=== PATIENT | female | born 1965 | race Caucasian/White ===

== ENCOUNTER 2021-09-10 09:43 | Day surgery (SDC) | payer OTHER ==
[2021-09-07 10:39] LABS: Absolute Lymphocytes (CBC) 1.4 K/uL (0.7-4.9); Hematocrit 49.2 % (36.0-45.0); Lymphocytes % 15.2 % (15.3-44.8)
[2021-09-07 10:47] LABS: Protime INR 0.87
[2021-09-07 11:52] LABS: Blood Morphology Comment NOTED (NOT SEEN); Platelet Estimate ADEQ; Platelets, Giant FEW; White Blood Cell Scan OK (OK)
[2021-09-07 11:53] LABS: Anisocytosis 1+; Macrocytosis 1+
[2021-09-10] MEDS ORDERED: Ringers Lactate 1,000 ML IV ONE ×2 (09:53→15:32)
[2021-09-10] MEDS ORDERED: CEFAZOLIN SODIUM 1 GM/VIAL ONE (09:54)
[2021-09-10] MEDS ORDERED: NA CHLORIDE 0.9% 50 ML ONE (09:54)
[2021-09-10] MEDS ORDERED: MIDAZOLAM HCL 2 MG/2 ML INJ ONE (11:09)
[2021-09-10] MEDS ORDERED: ROPIVACAINE HCL 20 ML ONE (11:09)
[2021-09-10] MEDS ORDERED: dexAMETHasone 10 MG/ML VIAL ONE ×2 (11:09→14:38)
[2021-09-10] MEDS ORDERED: LIDOCAINE 1% MPF 5 ML VIAL ONE (11:09)
[2021-09-10] MEDS ORDERED: ROPLVACAINE HCL 20 ML ONE (11:09)
[2021-09-10] MEDS ORDERED: FENTANYL CITR 100 MCG/2 ML ONE (11:09)
[2021-09-10] MEDS ORDERED: dexAMETHasone 4 MG/ML VIAL ONE (11:34)
[2021-09-10] MEDS ORDERED: LIDOCAINE 1% 20 ML MDV ONE (11:35)
[2021-09-10] MEDS ORDERED: BUPIVACAINE 0.5% Inj,MDV 50 mL VIAL ONE (11:36)
[2021-09-10] MEDS ORDERED: Mastisol Adhesive Liq ONE (11:36)
[2021-09-10] MEDS ORDERED: BUPIVACAINE 0.5% PF 10 ML VIAL ONE (11:37)
[2021-09-10] MEDS ORDERED: propofoL 200 MG/20 ML VIAL IV ONE (11:45)
[2021-09-10] MEDS ORDERED: LIDOCAINE 2% MPF 5 ML VIAL ONE (11:46)
[2021-09-10] MEDS ORDERED: KETOROLAC 30 MG/ML INJ ONE (14:38)
[2021-09-10] MEDS ORDERED: ONDANSETRON 4 MG/2 ML VIAL ONE (14:49)
[2021-09-10 15:46] VITALS: O2SAT 94
[2021-09-10 17:44] VITALS: BP 119/72; TEMP 96.8
== END 2021-09-10 17:25 | disposition home or self-care (01) ==
LOC: OR 09:43
PROVIDERS: ATTEND Podiatrist Foot Surgery
PROC: 0QBN0ZZ Excision of Right Metatarsal, Open Approach (ICD-10-PCS; 2021-09-10)
PROC: 0QSN04Z Reposition Right Metatarsal with Internal Fixation Device, Open Approach (ICD-10-PCS; 2021-09-10)
PROC: 0L8V0ZZ Division of Right Foot Tendon, Open Approach (ICD-10-PCS; 2021-09-10)
PROC: 0SNM0ZZ Release Right Metatarsal-Phalangeal Joint, Open Approach (ICD-10-PCS; 2021-09-10)
PROC: 0SNM0ZZ Release Right Metatarsal-Phalangeal Joint, Open Approach (ICD-10-PCS; 2021-09-10)
PROC: 0SNM0ZZ Release Right Metatarsal-Phalangeal Joint, Open Approach (ICD-10-PCS; 2021-09-10)
PROC: 0LU Tendons, Supplement (ICD-10-PCS; 2021-09-10)
PROC: 0QBQ0ZZ Excision of Right Toe Phalanx, Open Approach (ICD-10-PCS; 2021-09-10)
PROC: 0QSN04Z Reposition Right Metatarsal with Internal Fixation Device, Open Approach (ICD-10-PCS; principal; 2021-09-10 11:00)
DX: M21.611 Bunion of right foot (principal); M20.41 Other hammer toe(s) (acquired), right foot; M21.271 Flexion deformity, right ankle and toes; Z20.822 Contact with and (suspected) exposure to COVID-19
CPT/HCPCS: 28296; 28285 ×3; 28270 ×3; 28899; 28124 ×2; 85025; 36415; 85610; 88300; 85730; U0002; J2704; J2250; J3010; J1100 ×2; J2795; J7120 ×2; J2405; J0690

== ENCOUNTER 2022-03-23 09:34 | Emergency (ER) | payer OTHER ==
--- OUTSIDE RECORDS SUMMARY | 2022-03-23 09:38 | XMS REPORT | Continuity of Care Document ---
:1965 Author Organization [facility] t Address [address] [place] [address] Care Team Providers Name Role Phone Sharonda Cowan MD Primary Care Physician STAR MENARD Attending Clinician Unavailable Sharonda Cowan MD Attending Clinician Star Menard MD Attending Clinician Roxi Sunshine Attending Clinician Pob, Adc Lab Main Attending Clinician Unavailable ROXI US Attending Clinician Unavailable Oralia Sky Attending Clinician ELENA HARRISON Attending Clinician Unavailable Elena Fajardo Attending Clinician Natalya Cantu Attending Clinician Lab, Ang - Db Attending Clinician Unavailable Doctor Unassigned, [place] Attending Clinician Unavailable SHARONDA COWAN Attending Clinician Unavailable Kelsy Ford MA Attending Clinician Unavailable Akosua TRACY, Rosa Arguelles Attending Clinician ORALIA ROBERT Attending Clinician Unavailable Scar Husain Attending Clinician SCAR ADAMES Attending Clinician Unavailable Marylou Santos Attending Clinician MARYLOU ALAN Attending Clinician Unavailable Provider, [facility] Attending Clinician Unavailable Lab, Adc Fam Pob I Attending Clinician Unavailable Mary Crocker PA-C Attending Clinician Ruy Alcala Attending Clinician RUY ELDRIDGE Attending Clinician Unavailable STAR MENARD Admitting Clinician Unavailable ROXI US Admitting Clinician Unavailable Payers Payer Name Policy Type Policy Number Effective Date Expiration Date S ac [facility] [id number] 2021 PPO 00:00:00 [employer] [place] [id number] 2020 00:00:00 Problems Condition Condition Condition Status Onset Resolution Last Treating Co mments Source Name Details Category Date Date Treatment Clinician Date Encounter Encounter Disease Active Overview: Univers for for 8-24 Formattin ity of colorectal colorectal 00:00: g of this [place] cancer cancer 00 note Medical screening screening might be Br anch different from the original. Added automatic ally from request for surgery [id number] Elevated Elevated Disease Active Unive rs LFTs LFTs 7-23 ity of 00:00: [place] 00 Medical Branch Urge Urge Disease Active Univers incontinen incontinen 3-30 it y of ce of ce of 00:00: [place] urine urine 00 Medical Branch Hypothyroi Hypothyroi Disease Active U nivers dism, dism, 3-30 ity of unspecifie [place]specif[place] d type d type 00 Medical [place] Skin Skin Disease Active Univers lesion lesion 3-30 ity of 00:00: [place] 00 Medical Branch Varicose Varicose Disease Active Unive rs veins of veins of 3-30 ity of both lower both lower [place] extremitie extremitie 00 Me dical s s Branch Hyperchole Hyperchole Disease Active U nivers sterolemia sterolemia 3-30 it y of 00:00: [place] 00 Medical Branch Depression Depression Disease Active U nivers 5-16 ity of 00:00: [place] 00 Medical Branch 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 3-07 it y of s without s without 00:[place] myelopathy myelopathy 00 Me dical Branch Left Left Disease Active Univers shoulder shoulder 9-29 ity of pain pain 00:00: [place] 00 Medical Branch Allergies, Adverse Reactions, Alerts Allergy Allergy Status Severity Reaction(s) Onset Inactive Treating Comm ents Source Name Type Date Date Clinician BUSPIRON DRUG Active Hives Univers E INGREDI 3-03 ity of 00:00: [place] 00 Medical Branch BUPROPIO DRUG Active Hives Univers N INGREDI 3-03 ity of 00:00: [place] 00 Medical Branch Buspiron Propensi Active Hives Univer s e ty to 3-03 ity of adverse 00:00: [place] reaction 00 Medical s Branch Bupropio Propensi Active Hives Univer s n ty to 3-03 ity of adverse 00:00: [place] reaction 00 Medical s Branch METHYLPR DRUG Active Hives 2020-05 Univers EDNISOLO INGREDI 1-12 ity of NE 00:00: [place] 00 Medical Branch Methylpr Propensi Active Hives 2020-05 Univer s ednisolo ty to 1-12 ity of ne adverse 00:00: [place] reaction 00 Medical s Branch Predniso Propensi Active Anaphylaxis 2020-05 U nivers ne ty to 1-04 ity of adverse 00:00: [place] reaction 00 Medical s Branch PREDNISO DRUG Active Anaphylaxis 2020-05 Uni vers NE INGREDI 1-04 ity of 00:00: [place] 00 Medical Branch VARENICL DRUG Active Other-Cmnt Univ ers INE INGREDI 7-18 ity of 00:00: [place] 00 Medical Branch Varenicl Propensi Active Other - See 2018- Anger, U nivers ine ty to comments 7-18 irritabil ity o f adverse 00:00: ity [place] reaction 00 Medical s to Branch drug CHERATUS DRUG Active Swelling 2014-05 Univer s SIN 0-29 ity of 00:00: [place] 00 Medical Branch Cheratus Propensi Active Swelling 2014-05 Swelling Un ana sin ty to 0-29 in throat ity of adverse 00:00: [place] reaction 00 Medical s Branch Social History Social Habit Start Date Stop Date Quantity Comments Source History of tobacco Cigarette Smoker University of use [facility] Alcohol intake 2022-01-14 2022-01-14 3 /d University of 00:00:00 00:00:00 [facility] Exposure to 2021-12-14 2021-12-24 Not sure [facility] SARS-CoV-2 (event) 00:00:00 11:53:00 [facility] Tobacco use and 2021-11-11 2021-11-11 Smokeless Universit y of exposure 00:00:00 00:00:00 tobacco non-user [facility] dicga Branch Cigarettes smoked 2021-11-11 2021-11-11 Univers ity of current (pack per 00:00:00 00:00:00 [facility] ) - Reported Branch Cigarette 2021-11-11 2021-11-11 University of pack-years 00:00:00 00:00:00 [facility] Sex [birth year] At [birth year] Universit y of 00:00:00 00:00:00 [facility] Smoking Status Start Date Stop Date Source Smokes tobacco daily 2021-11-11 00:00:00 [facility] ity of [facility] Medications Ordered Filled Start Stop Current Ordering Indication Dosage Frequency Signature Comments Components Source Medication Medication Date Date Medication? Clinician (SIG) Name Name MONTELUKAST 2021-05 Yes [id number] TAKE ONE Univers 10 mg 1-04 (1) TABLET ity of tablet 00:00: BY MOUTH [place] 00 DAILY. [facility] Branch benzonatate Yes [id number] 200mg Take 1 Univers 200 mg 8-19 capsule by ity of capsule 00:00: mouth 3 [place] 00 (three) Medical times [place] daily as needed for Cough. benzonatate Yes [id number] 200mg Take 1 Univers 200 mg 8-19 capsule by ity of capsule 00:00: mouth 3 [place] 00 (three) Medical times [place] daily as needed for Cough. benzonatate Yes [id number] 200mg Take 1 Univers 200 mg 8-19 capsule by ity of capsule 00:00: mouth 3 [place] 00 (three) Medical times [place] daily as needed for Cough. benzonatate Yes [id number] 200mg Take 1 Univers 200 mg 8-19 capsule by ity of capsule 00:00: mouth 3 [place] 00 (three) Medical times [place] daily as needed for Cough. amoxicillin 2021- No [id number] 1{tbl} Take 1 Univers -clavulanat 8-19 08-30 tablet by it y of e 00:00: 04:59 mouth in [place] (AUGMENTIN) 00 :00 the Medical 875-125 mg morning Branch per tablet and 1 tablet in the evening. Do all this for 10 days. ALBUTEROL Yes [id number] INHALE TWO Univers 90 8-15 (2) PUFFS ity of mcg/actuati 00:00: [place] on inhaler 00 EVERY 6 Medica l (SIX) Branch HOURS NEEDED FOR WHEEZING. ALBUTEROL Yes [id number] INHALE TWO Univers 90 8-15 (2) PUFFS ity of mcg/actuati 00:00: [place] inhaler 00 EVERY 6 Medica l (SIX) Branch HOURS NEEDED FOR WHEEZING. ALBUTEROL Yes [id number] INHALE TWO Univers 90 8-15 (2) PUFFS ity of mcg/actuati 00:00: [place] inhaler 00 EVERY 6 Medica l (SIX) Branch HOURS NEEDED FOR WHEEZING. ALBUTEROL Yes [id number] INHALE TWO Univers 90 8-15 (2) PUFFS ity of mcg/actuati 00:00: [place] inhaler 00 EVERY 6 Medica l (SIX) Branch HOURS NEEDED FOR WHEEZING. gabapentin Yes TAKE ONE Uni vers 100 mg 7-30 (1) ity of capsule 00:00: [place] 00 BY MOUTH Medical ONCE A DAY Branch AT BEDTIME NEEDED FOR INSOMNIA. gabapentin Yes TAKE ONE Uni vers 100 mg 7-30 (1) ity of capsule 00:00: [place] 00 BY MOUTH Medical ONCE A DAY Branch AT BEDTIME NEEDED FOR INSOMNIA. gabapentin Yes TAKE ONE Uni vers 100 mg 7-30 (1) ity of capsule 00:00: [place] 00 BY MOUTH Medical ONCE A DAY Branch AT BEDTIME NEEDED FOR INSOMNIA. gabapentin Yes TAKE ONE Uni vers 100 mg 7-30 (1) ity of capsule 00:00: [place] 00 BY MOUTH Medical ONCE A DAY Branch AT BEDTIME NEEDED FOR INSOMNIA. ezetimibe Yes [id number] 10mg Take 1 Un ana (ZETIA) 10 7-12 tablet by ity of mg tablet 00:00: [place] 00 the Medical morning. Branch ezetimibe 2021-0 Yes [id number] 10mg Take 1 Un ana (ZETIA) 10 7-12 tablet by ity of mg tablet 00:00: [place] 00 the Medical morning. Branch ezetimibe 2021-0 Yes [id number] 10mg Take 1 Un ana (ZETIA) 10 7-12 tablet by ity of mg tablet 00:00: [place] 00 the Medical morning. Branch ezetimibe 2021-0 Yes [id number] 10mg Take 1 Un ana (ZETIA) 10 7-12 tablet by ity of mg tablet 00:00: [place] 00 the Medical morning. Branch levocetiriz 2021-0 Yes [id number] 5mg Take 1 Univers ine 5 mg 6-22 tablet by ity of tablet 00:00: mouth [place] 00 every Medical evening. Branch levocetiriz 2021-0 Yes [id number] 5mg Take 1 Univers ine 5 mg 6-22 tablet by ity of tablet 00:00: mouth [place] 00 every Medical evening. Branch levocetiriz 2021-0 Yes [id number] 5mg Take 1 Univers ine 5 mg 6-22 tablet by ity of tablet 00:00: mouth [place] 00 every Medical evening. Branch levocetiriz 2021-0 Yes [id number] 5mg Take 1 Univers ine 5 mg 6-22 tablet by ity of tablet 00:00: mouth [place] 00 every Medical evening. Branch montelukast 2021-0 Yes [id number] 10mg Take 1 Univers 10 mg 4-25 tablet by ity of tablet 00:00: mouth [place] 00 daily. Medical Branch desvenlafax 2021-0 Yes [id number] 100mg Take 1 Univers ine 4-25 tablet by ity of succinate 00:00: mouth [place] 100 mg 24 00 daily. Medical tablet Branch montelukast 2021-0 Yes [id number] 10mg Take 1 Univers 10 mg 4-25 tablet by ity of tablet 00:00: mouth [place] 00 daily. Medical Branch desvenlafax 2021-0 Yes [id number] 100mg Take 1 Univers ine 4-25 tablet by ity of succinate 00:00: mouth [place] 100 mg 24 00 daily. Medical hr tablet Branch montelukast 0 Yes [id number] 10mg Take 1 Univers 10 mg 4-25 tablet by ity of tablet 00:00: mouth [place] 00 daily. Medical Branch desvenlafax 0 Yes [id number] 100mg Take 1 Univers ine 4-25 tablet by ity of succinate 00:00: mouth [place] 100 mg 24 00 daily. Medical hr tablet Branch desvenlafax Yes [id number] 100mg Take 1 Univers ine 4-25 tablet by ity of succinate 00:00: mouth [place] 100 mg 24 00 daily. Medical hr tablet Branch montelukast 2021- No [id number] 10mg Take 1 Univers 10 mg 4-25 11-04 tablet by ity of tablet 00:00: 00:00 mouth [place] 00 :00 daily. [facility] Immunizations Ordered Filled Immunization Date Status Comments [facility] e Immunization Name Name Pneumococcal 2021-11-11 Completed University o f Polysaccharide, 00:00:00 [place] Med ical PPSV23 (PNEUMOVAX) Branch Pneumococcal 2021-11-11 Completed University o f Polysaccharide, 00:00:00 [place] Med ical PPSV23 (PNEUMOVAX) Branch Pneumococcal 2021-11-11 Completed University o f Polysaccharide, 00:00:00 [place] Med ical PPSV23 (PNEUMOVAX) Branch Pneumococcal 2021-11-11 Completed University o f Polysaccharide, 00:00:00 [facility] ical PPSV23 (PNEUMOVAX) Branch TDAP 2021-04-07 Completed University of 00:00:00 [facility] TDAP 2021-04-07 Completed University of 00:00:00 [facility] TDAP 2021-04-07 Completed University of 00:00:00 [facility] TDAP 2021-04-07 Completed University of 00:00:00 [facility] Zoster Vaccine 2018-05-03 Completed University of Recombinant 00:00:00 [facility] Zoster Vaccine 2018-05-03 Completed University of Recombinant 00:00:00 [facility] Zoster Vaccine 2018-05-03 Completed University of Recombinant 00:00:00 [facility] Zoster Vaccine 2018-05-03 Completed University of Recombinant 00:00:00 [facility] Influenza Virus 2018-02-27 Completed Universit y of Vaccine Quad IM 3+ 00:00:00 [facility] Zoster Vaccine 2018-02-27 Completed University of Recombinant 00:00:00 [facility] Influenza Virus 2018-02-27 Completed Universit y of Vaccine Quad IM 3+ 00:00:00 [facility] Zoster Vaccine 2018-02-27 Completed University of Recombinant 00:00:00 [facility] Influenza Virus 2018-02-27 Completed Universit y of Vaccine Quad IM 3+ 00:00:00 [facility] Zoster Vaccine 2018-02-27 Completed University of Recombinant 00:00:00 [facility] Influenza Virus 2018-02-27 Completed Universit y of Vaccine Quad IM 3+ 00:00:00 [facility] Zoster Vaccine 2018-02-27 Completed University of Recombinant 00:00:00 [facility] Vital Signs Vital Name Observation Time Observation Value Comments Source Systolic blood 2021-12-24 21:45:00 131 mm[Hg] Univer sity of pressure [facility] Diastolic blood 2021-12-24 21:45:00 75 [facility]Hg[facility] 2021-12-24 21:45:00 76 /min [facility] Body temperature 2021-12-24 21:45:00 36.39 Maria Esther [facility] Respiratory rate 2021-12-24 21:45:00 18 /min [facility] Body height 2021-12-24 21:45:00 172.7 cm [facility] Body weight 2021-12-24 21:45:00 77.747 kg [facility] BMI 2021-12-24 21:45:00 26.06 kg/m2 [facility] Oxygen saturation in 2021-12-24 21:45:00 95 /min [facility] blood by [facility] [facility] Pulse oximetry Branch Procedures This patient has no known procedures. Encounters Start End Encounter Admission Attending Care Care Encounter Source Date/Time Date/Time Type Type Clinicians Facility Department ID 2022-02-18 Outpatient Jillian MENARD [facility] DONATO [id number] Univers 18:21:07 STAR hurd [facility] 2022-03-11 2022-03-11 Brenda Cowan [facility] [id number] Univers 00:00:00 00:00:00 Sharonda HEALTH [id number] it y of [facility] [id number] Art as SHANTEL?BLEA [id number] [address] 2022-02-21 2022-02-21 [facility] [id number] Univers 00:00:00 00:00:00 Star GAGE [id number] i ty of [facility] [id number] [place] [id number] [facility] [address] [facility] 2022-01-09 2022-01-09 [facility] [id number] Univers 00:00:00 00:00:00 Roxi Blane HEALTH [id number] i ty of [facility] [id number] Art as SHANTEL?BLEA [id number] [address] 2022-01-07 2022-01-07 Direct Marketing Analyst Lisa, Leeanna Lab Main [facility] [id number] Univers 08:00:00 08:15:00 Visit Roxi Us [id number] ity of [facility] [id number] [place] [phone] [facility] [address] [facility] 2022-01-07 2022-01-07 [facility] [id number] Univers 08:00:00 08:00:00 ROXI ity of [facility] 2022-01-03 2022-01-03 Telephone [facility] [id number] Univers 00:00:00 00:00:00 Oralia HEALTH [id number] it y of [facility] [id number] Art as SHANTEL?BLEA [id number] [address] 2021-12-29 2021-12-29 Telephone [facility] [id number] Univers 00:00:00 00:00:00 Star GAGE [id number] i ty of [place] [id number] [place] [id number] Ma dical NAL [address] [facility] 2021-12-29 2021-12-29 Telephone [facility] [id number] Univers 00:00:00 00:00:00 Roxi A HEALTH 350.1.13.10 i ty of [place] 4.2.7.2.686 Art as SHANTEL?BLEA [id number] Ma jolene FERGUSON 044 [facility] OFFICE [facility] 2021-12-29 2021-12-29 Prep For [facility] [id number] Univers 00:00:00 00:00:00 Surgery Star GAGE [id number] i ty of [facility] 4.2.7.2.686 [place] [id number] Ma dical NAL [address] [place] [address] 2021-12-24 2021-12-24 Outpatient [facility] [id number] Univers 15:15:00 16:18:46 ELENA peggytenisha o f [facility] 2021-12-24 2021-12-24 Office [facility] [id number] Univers 15:15:00 16:18:46 Visit Elena GAGE 350.1.13.10 ity of [place] 4.2.7.2.686 [place] [phone] Ma dical NAL [address] [place] [address] 2021-12-24 2021-12-24 Urgent [facility] [id number] Univers 12:00:00 12:29:18 Care [facility] [id number] i ty of [place] 4.2.7.2.686 Art as SHANTEL?BLEA [id number] Ma dicgertrudis FERGUSON 370 [facility] OFFICE [facility] 2021-12-19 2021-12-19 Refeduin [facility] [id number] Univers 00:00:00 00:00:00 Sharonda HEALTH 350.1.13.10 it y of [place] 4.2.7.2.686 Art as SHANTEL?BLEA [phone] [address] MEDICAL OFFICE [facility] 2021-12-10 2021-12-10 [facility] 1.2.840.114 [id number] Univers 14:33:15 23:59:00 Encounter Roxi A SPECIALTY 350.1.13.10 ity of CARE 4.2.7.2.686 [facility] AT [id number] Ma jolene CARRIZALES [address] [place] [address] 2021-12-10 2021-12-10 Outpatient R [facility] [id number] Univers 14:26:16 14:32:00 ROXI ity of [facility] 2021-12-10 2021-12-10 [facility] [id number] Univers 14:26:16 14:32:00 Encounter Roxi A SPECIALTY 350.1.13.10 ity of CARE 4.2.7.2.686 [facility] s MONTEREY AT [id number] Ma jolene CARRIZALES [address] [place] [address] 2021-12-08 2021-12-08 Outpatient R [facility] [id number] Univers 17:07:43 23:59:00 ROXI ity of [facility] 2021-12-08 2021-12-08 [facility] [id number] Univers 17:07:43 23:59:00 Encounter Roxi A [place] 350.1.13.10 ity of [place] 4.2.7.2.686 [place] [id number] [facility] 8[address] [place] 2021-12-07 2021-12-07 [facility] 1.2.840.114 [id number] Univers 00:00:00 00:00:00 [facility] 350.1.13.10 it y of [place] 4.2.7.2.686 Art as SHANTEL?BLEA [phone] Ma melvinaga K[address] MEDICAL OFFICE [facility] 2021-11-27 2021-11-27 [facility] [id number] Univers 00:00:00 00:00:00 Roxi Blane HEALTH 350.1.13.10 i ty of [place] 4.2.7.2.686 Art as SHANTEL?BLEA [id number] [facility] [address] [place] MEDICAL OFFICE [facility] 2021-11-18 2021-11-18 [facility] 1.2.840.114 [id number] Univers 15:17:18 23:59:00 Encounter Roxi [place] 350.1.13.10 ity of [place] 4.2.7.2.686 [place] [id number] [address] 2021-11-18 2021-11-18 [facility] [id number] Univers 15:17:18 23:59:00 ROXI ity [facility] 2021-11-18 2021-11-18 Direct Marketing Analyst Lab, Ang - Db [facility] [id number] Univers 13:45:00 13:45:00 Visit Sharonda Cowan ZenDay 350.1.13.10 ity of [place] 4.2.7.2.686 Art as SHANTEL?BLEA [id number] [facility] [address] [facility] OFFICE [facility] 2021-11-18 2021-11-18 Outpatient [facility] [id number] Univers 00:00:00 00:00:00 ROXI ity [facility] 2021-11-18 2021-11-18 Refill [facility] 1.2.840.114 [id number] Univers 00:00:00 00:00:00 [employer] 350.1.13.10 it y of [facility] 4.2.7.2.686 Art as SHANTEL?BLEA [id number] [facility] 044 [facility] OFFICE [facility] 2021-11-16 2021-11-16 Telephone [facility] [id number] Univers 00:00:00 00:00:00 Roxi A HEALTH 350.1.13.10 i ty of [place] 4.2.7.2.686 Art as SHANETL?BLEA [id number] [facility] 044 [facility] 2021-11-14 2021-11-14 Telephone Magen, [facility] [id number] Univers 00:00:00 00:00:00 Roxi A HEALTH 350.1.13.10 i ty of [place] 4.2.7.2.686 Art as SHANTEL?BLEA [phone] Ma jolene FERGUSON 044 [facility] 2021-11-13 2021-11-13 Telephone Magen, [facility] [id number] Univers 00:00:00 00:00:00 Roxi A HEALTH 350.1.13.10 i ty of [place] 4.2.7.2.686 Art as SHANTEL?BLEA [id number] Ma jolene FERGUSON 044 [facility] 2021-11-11 2021-11-11 Direct Marketing Analyst Lab, Ang - Db [facility] 1.2.840.1 [id number] Univers 10:00:00 10:39:46 Visit Roxi Us HEALTH 350.1.13.10 ity of [place] 4.2.7.2.686 Art as SHANTEL?BLEA [phone] Ma jolene FERGUSON 353 [facility] 2021-11-11 2021-11-11 Direct Marketing Analyst Lab, Ang - Db [facility] 1.2.840.1 [id number] Univers 10:00:00 10:15:00 Visit Roxi Us A HEALTH 350.1.13.10 ity of [place] 4.2.7.2.686 Art as SHANTEL?BLEA [id number] Ma jolene FERGUSON 353 [facility] 2021-11-11 2021-11-11 Outpatient R MAGEN [facility] [id number] Univers 10:00:00 10:00:00 ROXI ity [facility] 2021-11-11 2021-11-11 Outpatient R MAGEN [facility] [id number] [facility] 09:00:00 09:47:03 ROXI ity [facility] 2021-11-11 2021-11-11 Outpatient R MAGEN [facility] [id number] Univers 09:00:00 09:47:03 ROXI ity [facility] 2021-11-11 2021-11-11 Office [facility] 1.2.840.114 [id number] Univers 09:00:00 09:47:03 Visit Roxi Arguelles HEALTH 350.1.13.10 i ty of [facility] 4.2.7.2.686 Art as SHANTEL?BLEA [id number] [address] MEDICAL OFFICE [facility] 2021-11-11 2021-11-11 [facility] [id number] Univers 09:00:00 09:47:03 ROXI hurd [facility] 2021-11-11 2021-11-11 Orders Doctor MARY 1.2.840.114 [id number] Univers 00:00:00 00:00:00 Only Unassigned, MUKESH 350.1.13.10 ity of [place] [facility] 4.2.7.2.686 Art as [phone] [facility] 00[address] [place] 2021-11-10 2021-11-10 Outpatient R MAGEN [facility] [id number] Univers 09:45:00 09:45:00 ROXI hurd [facility] 2021-11-02 2021-11-02 [facility] [id number] Univers 08:30:00 08:30:00 SHARONDA uhrd [facility] 2021-10-29 2021-10-29 Pre Visit MARITZA [place] [id number] Univers 00:00:00 00:00:00 Outreach Kelsy MANCIA 350.1.13.10 ity of [place].2.[place] [phone] [facility] 086 [place] 2021-10-27 2021-10-27 Telephone Camryn [facility] [id number] Univers 00:00:00 00:00:00 Sharonda ZenDay 350.1.13.10 it y of [place] 4.2.7.2.686 Art as SHANTEL?BLEA [id number] [address] OFFICE [facility] 2021-10-19 2021-10-19 Refill Camryn [facility] 1.2.840.114 [id number] Univers 00:00:00 00:00:00 Sharonda HEALTH 350.1.13.10 it y of [place] 4.2.7.2.686 Art as SHANTEL?BLEA [id number] [address] MEDICAL OFFICE [facility] 2021-09-13 2021-09-13 Outpatient [facility] [id number] Univers 08:00:00 08:00:00 SHARONDA hurd [facility] 2021-08-30 2021-08-30 [facility] 1.2.840.114 [id number] Univers 12:45:00 13:00:00 Visit [facility] 350.1.13.10 it y of [facility] 4.2.7.2.686 Art as SHANTEL?BLEA [phone] [address] OFFICE [facility] 2021-08-30 2021-08-30 Outpatient Jillian COWAN [facility] [id number] Univers 12:45:00 12:45:00 SHARONDA hurd [facility] 2021-08-30 2021-08-30 Orders Doctor MARY 1..840.114 [id number] Univers 00:00:00 00:00:00 Only Unassigned, MUKESH 350.1.13.10 ity of [place] [facility] 4.2.7.2.686 Art as [phone] [address] 2021-08-25 2021-08-25 Telephone [facility] 1.2.685.183 [id number] Univers 00:00:00 00:00:00 Sharonda HEALTH 350.1.13.10 it y of [place] 4.2.7.2.686 Art as SHANTEL?BLEA [phone] [address] MEDICAL OFFICE [facility] 2021-07-30 2021-07-30 Refill Magen [facility] 1.2.840.114 [id number] Univers 00:00:00 00:00:00 Roxi A HEALTH 350.1.13.10 i ty of [place] 4.2.7.2.686 Art as SHANTEL?BLEA [phone] [address] OFFICE [facility] 2021-07-29 2021-07-29 Refeduin [facility] 1.2.840.114 [id number] Univers 00:00:00 00:00:00 Wondiful A HEALTH 350.1.13.10 ity of [place] 4.2.7.2.686 Art as SHANTEL?BLEA [phone] [address] OFFICE [facility] 2021-07-26 2021-07-26 Refeduin [facility] 1.2.840.114 [id number] Univers 00:00:00 00:00:00 Roxi A HEALTH 350.1.13.10 i ty of [place] 4.2.7.2.686 Art as SHANTEL?BLEA [phone] [address] 2021-07-22 2021-07-22 Refeduin [facility] 1.2.840.114 [id number] Univers 00:00:00 00:00:00 Sharonda HEALTH 350.1.13.10 it y of [place] 4.2.7.2.686 Art as SHANTEL?BLEA [phone] [address] 2021-07-19 2021-07-19 Outpatient R CAMRYN [facility] [id number] Univers 08:30:00 08:56:57 SHARONDA hurd [facility] 2021-07-12 2021-07-12 Outpatient Jillian ROBERT [facility] [id number] Univers 15:30:00 16:14:10 ORALIA hurd [facility] 2021-07-08 2021-07-08 Outpatient Jillian US [facility] [id number] Univers 13:00:00 13:43:31 ROXI hurd [facility] 2021-07-08 2021-07-08 Orders Doctor HERNANDEZ 1.2.840.114 [id number] Univers 00:00:00 00:00:00 Only Unassigned, MUKESH 350.1.13.10 ity of [place] [facility] 4.2.7.2.686 Art as [phone] [address] 2021-03-19 2021-03-19 Akila Cowan [facility] 1.2.414.443 [id number] Univers 00:00:00 00:00:00 [facility] 350.1.13.10 it y of [place] 4.2.7.2.686 Art as SHANTEL?BLEA [phone] [facility] [address] MEDICAL OFFICE [facility] 2021-03-11 2021-03-11 Urgent [facility] 1.2.840.114 [id number] Univers 18:56:06 19:16:06 [facility] 350.1.13.10 it y of [place] 4.2.7.2.686 Art as SHANTEL?BLEA [phone] [facility] 370 [facility] OFFICE [facility] 2021-03-11 2021-03-11 Outpatient R JUAN [facility] [id number] Univers 19:00:00 19:00:00 [facility] 2021-03-09 2021-03-09 Outpatient R CAMRYN [facility] [id number] Univers 10:15:00 10:49:43 [facility] 2021-03-09 2021-03-09 Office [facility] 1.2.840.114 [id number] Univers 10:22:52 10:37:52 Visit [facility] 350.1.13.10 it y of [place] 4.2.7.2.686 Art as SHANTEL?BLEA [phone] [address] OFFICE [facility] 2021-03-09 2021-03-09 Outpatient Jillian COWAN [facility] [id number] Univers 10:15:00 10:15:00 [facility] 2021-03-09 2021-03-09 Farhana [facility] 1.2.840.114 [id number] Univers 00:00:00 00:00:00 (Out) [facility] 350.1.13.10 it y of [place] 4.2.7.2.686 Art as SHANTEL?BLEA [phone] [address] MEDICAL OFFICE [facility] 2021-03-08 2021-03-08 Outpatient Jillian COWAN [facility] [id number] Univers 12:00:00 12:00:00 SHARONDA ittenisha [facility] 2021-03-05 2021-03-05 Urgent Natalya Darden [facility] 1.2.840. 114 [id number] Univers 09:26:30 09:55:51 Care Dayanna [facility] 350.1.13.10 ity of [place] 4.2.7.2.686 Art as SHANTEL?BLEA [phone] [address] MEDICAL OFFICE BUILDING 2021-03-05 2021-03-05 Outpatient R DAYANNA [facility] [id number] Univers 09:20:00 09:55:51 [facility] 2021-03-05 2021-03-05 Letter Provider, [facility] 1.2.794.443 [id number] Univers 00:00:00 00:00:00 (Out) Ang Db HEALTH 350.1.13.10 it y of Urgent [facility] 4.2.7.2.686 [place] SHANTEL?BLEA [phone] [address] MEDICAL OFFICE BUILDING 2020-12-18 2020-12-18 Telephone [facility] 1.2.176.231 [id number] Univers 00:00:00 00:00:00 [facility] 350.1.13.10 it y of [place] 4.2.7.2.686 Art as Professio [phone] Ma dicga nal [address] Office [address] [facility] 2020-12-14 2020-12-14 Telephone [facility] 1.2.143.228 [id number] Univers 00:00:00 00:00:00 [facility] 350.1.13.10 it y of [place] 4.2.7.2.686 Art as Professio [phone] Ma dical nal [address] [facility] 2020-12-11 2020-12-11 Telephone [facility] 1.2.922.024 [id number] Univers 00:00:00 00:00:00 [facility] 350.1.13.10 it y of [place] 4.2.7.2.686 Art as Professio [phone] [address] One 2020-12-07 2020-12-07 Office [facility] 1.2.840.114 [id number] Univers 09:27:42 09:42:42 Visit [facility] 350.1.13.10 it y of [place] 4.2.7.2.686 Art as Professio [phone] [address] One 2020-12-07 2020-12-07 [facility] [id number] Univers 09:30:00 09:30:00 SHARONDA hurd [facility] 2020-10-14 2020-10-14 Office [facility] 1.2.840.114 [id number] Univers 13:58:01 14:13:01 Visit [facility] 350.1.13.10 it y of [place] 4.2.7.2.686 Art as Professio [phone] [address] One 2020-10-14 2020-10-14 Outpatient Jillian CRAIGCOWAN [facility] [id number] Univers 14:00:00 14:00:00 SHARONDA hurd [facility] 2020-10-14 2020-10-14 Telephone [facility] 1.2.152.539 [id number] Univers 00:00:00 00:00:00 [facility] 350.1.13.10 it y of [place] 4.2.7.2.686 Art as Professio [phone] [address] One 2020-10-14 2020-10-14 Letter [facility] 1.2.840.114 [id number] Univers 00:00:00 00:00:00 (Out) [facility] 350.1.13.10 it y of [place] 4.2.7.2.686 Art as Professio [phone] [address] One 2020-10-14 2020-10-14 Telephone [facility] 1.2.368.996 [id number] Univers 00:00:00 00:00:00 [facility] 350.1.13.10 it y of [place] 4.2.7.2.686 Art as Professio [phone] Ma dical nal [address] [facility] 2020-09-28 2020-09-28 Telephone Camryn [facility] 1.2.092.857 [id number] Univers 00:00:00 00:00:00 [facility] 350.1.13.10 it y of [place] 4.2.7.2.686 Art as Professio [phone] Ma dical nal [address] [facility] 2020-09-23 2020-09-23 Direct Marketing Analyst Lab, Adc Fam Pob I [facility] 1.2. 840.114 [id number] Univers 08:29:04 08:49:04 Visit Sharonda Cowan [facility] 350.1.13.10 ity of [place] 4.2.7.2.686 Art as Professio [phone] Ma dical nal [address] Office [facility] One 2020-09-23 2020-09-23 Office Camryn [facility] 1.2.840.114 [id number] Univers 07:53:53 08:23:53 Visit [facility] 350.1.13.10 it y of [place] 4.2.7.2.686 Art as Professio [phone] Ma dical nal V[place] Office [facility] One 2020-09-23 2020-09-23 Outpatient R CAMRYN [facility] [id number] Univers 08:00:00 08:00:00 SHARONDA hurd of [facility] 2020-05-06 2020-05-06 Urgent Mary Crocker [facility] 1.2.840.114 [id number] Univers 16:39:37 16:59:37 Care Ruy [facility] 350.1.13.10 ity of [place] 4.2.7.2.686 Art as Professio [phone] Ma dical nal [address] [place] [address] Office [facility] 2020-05-06 2020-05-06 Outpatient R STEVIE [facility] [id number] Univers 16:40:00 16:40:00 RUY angulo [facility] 2020-05-06 2020-05-06 Letter Doctor HERNANDEZ 1.2.840.114 [id number] Univers 00:00:00 00:00:00 (Out) Unassigned, MUKESH 350.1.13.10 ity of [place] [facility] 4.2.7.2.686 Art as [phone] [facility] [address] 2019-09-04 2019-09-04 Brenda Cowan, INDOU[place] 1.2.840.114 [id number] Univers 00:00:00 00:00:00 [facility] 350.1.13.10 it y of [place] 4.2.7.2.686 Art as Professio [phone] [address] Office [address] [facility] 2019-08-09 2019-08-09 Brenda Cowan, [facility] 1.2.840.114 [id number] Univers 00:00:00 00:00:00 [facility] 350.1.13.10 it y of [place] 4.2.7.2.686 Art as Professio [phone] [address] Office [address] [facility] 2019-07-24 2019-07-24 Brenda Cowan, [place] 1.2.840.114 [id number] Univers 00:00:00 00:00:00 [facility] 350.1.13.10 it y of [place] 4.2.7.2.686 Art as Professio [phone] Ma dic[address] Office Building One 2019-07-19 2019-07-19 Brenda Cowan, [facility] 1.2.840.114 [id number] Univers 00:00:00 00:00:00 [facility] 350.1.13.10 it y of [place] 4.2.7.2.686 Art as Professio [phone] Ma dic[address] Office Building One 2019-06-25 2019-06-25 Brenda Cow[facility], [facility] 1.2.840.114 [id number] Univers 00:00:00 00:00:00 [facility] 350.1.13.10 it y of [place] 4.2.7.2.686 Art as Professio [phone] [address] Office [address] [facility] 2019-05-22 2019-05-22 Brenda Cowan, [facility] 1.2.840.114 [id number] Univers 00:00:00 00:00:00 [facility] 350.1.13.10 it y of [place] 4.2.7.2.686 Art as Professio [phone] Ma dical nal [address] [facility] 2018-12-27 2018-12-27 [facility] 1.2.840.114 [id number] Univers 09:52:49 10:19:38 Visit [facility] 350.1.13.10 it y of [place] 4.2.7.2.686 Art as Professio [phone] Ma dical nal [address] 2018-12-24 2018-12-24 Telephone [facility] 1.2.051.370 [id number] Univers 00:00:00 00:00:00 [facility] 350.1.13.10 it y of [place] 4.2.7.2.686 Art as Professio [phone] Ma dical nal [address] One Results This patient has no known results.
[2022-03-23 10:52] LABS: Absolute Lymphocytes (CBC) 1.5 K/uL (0.7-4.9); Hematocrit 48.7 % (36.0-45.0); Lymphocytes % 19.6 % (15.3-44.8); MCV 112.2 fL (80-100); MPV 9.1 fL (7.6-11.3); RBC Red Blood Cell Count 4.34 M/uL (3.86-4.86)
[2022-03-23 11:05] LABS: Potassium 3.9 mmol/L (3.5-5.1)
--- NOTE | 2022-03-23 11:29 | RAD REPORT ---
EXAM DESCRIPTION: CT - Head C Spine Cap Felicia Mcgarry - 03/23/2022 10:57 am CLINICAL HISTORY: Head and neck injury with chest and abdominal pain status post fall. Head and neck pain . TECHNIQUE: Computed axial tomography of the head and cervical spine was obtained Computed axial tomography of the chest, abdomen and pelvis was obtained. 100 cc Isovue-300 was given intravenously coronal and sagittal reconstruction was performed. All CT scans are performed using dose optimization technique as appropriate and may include automated exposure control or mA/KV adjustment according to patient size. COMPARISON: None FINDINGS: An intracranial bleed is not seen. No significant hypodensity within the brain. The ventri cles are normal in caliber. An extra-axial fluid collection is not noted. Fluid within the sinuses is not seen A cervical fracture is not seen. No dislocation is seen. A mediastinal hematoma is not noted. A pleural effusion is not present. A lung contusion is not seen. Nondisplaced fracture posterior right tenth rib. No pneumothorax The liver, spleen, pancreas, adrenals, kidneys and bladder do not demonstrate an acute traumatic inju ry Fatty liver IMPRESSION: No acute intracranial abnormality is seen A cervical fracture is not visualized. If the patient continues have symptoms to suggest intracranial /spinal cord pathology then MRI would be recommended. Nondisplaced fracture right tenth rib
[2022-03-23 12:28] LABS: Blood Morphology Comment NOTED (NOT SEEN); Macrocytosis 2+; Platelet Estimate ADEQ; White Blood Cell Scan OK (OK)
--- NOTE | 2022-03-23 12:28 | ER ---
Nurse's Notes [facility] Name: Christy Lazar Age: 57 yrs Sex: Female : 1965 Arrival Date: 03/23/2022 Time: 09:36 Bed DIS3 Private MD: Julio Cesar Quintero S Diagnosis: Fracture of one rib, right side;Animal-rider injured by fall from or being thrown from horse in noncollision accident, initial encounter;Cervicalgia;Dorsalgia, unspecified Presentation: 03/23 10:27 Chief complaint: Patient states: Fell off a horse on Monday, pain to right ribs, right jl7 elbow, low back, denies neck pain. Coronavirus screen: At this time, the client does not indicate any symptoms associated with coronavirus-19. Ebola Screen: No symptoms or risks identified at this time. Initial Sepsis Screen: Does the patient meet any 2 criteria? No. Patient's initial sepsis screen is negative. Does the patient have a suspected source of infection? No. Patient's initial sepsis screen is negative. Risk Assessment: Do you want to hurt yourself or someone else? Patient reports no desire to harm self or others. Onset of symptoms was March 20, 2022. 10:27 Method Of Arrival: Ambulatory jl7 10:27 Acuity: LISA 3 jl7 Triage Assessment: 10:29 General: Appears in no apparent distress. uncomfortable, Behavior is calm, cooperative, jl7 appropriate for age. Pain: Complains of pain in low back area and right arm and right ribs. 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 - Social history:: Smoking status: Patient reports the use of cigarette tobacco products, smokes one pack cigarettes per day. Patient uses alcohol, on a daily basis. Screenin:00 Abuse screen: Denies threats or abuse. Denies injuries from another. Nutritional jl7 screening: No deficits noted. Tuberculosis screening: No symptoms or risk factors identified. Fall Risk IV access (20 points). Assessment: 09:50 Reassessment: MARY Taylor in [facility] assessing pt. jl7 Vital Signs: 10:27 BP 144 / 85; Pulse 108; Resp 17; Temp 97.8; Pulse Ox 100% ; Weight 78.02 kg; Height 5 jl7 ft. 8 in. (172.72 cm); Pain 8/10; 10:27 Body Mass Index 26.15 (78.02 kg, 172.72 cm) jl7 ED Course: 09:36 Patient arrived in ED. as 09:36 Julio Cesar Quintero MD is Private Physician. as 09:38 Sergio Taylor PA is [facility]. cp 09:38 Sergio Mitchell MD is Attending Physician. cp 10:29 Triage completed. jl7 10:29 Arm band placed on right wrist. jl7 10:38 Inserted saline lock: 20 gauge in left antecubital area, using aseptic technique. Blood ll1 collected. 10:59 CT Traumagram (Head C Spine CAP W Con) In Process Unspecified. EDMS 11:00 Patient has correct armband on for positive identification. jl7 11:04 CT completed. Patient tolerated procedure well. Note: after scan pt came up from table sj demanding c collar be removed, I informed her I could not take it off without clearance and pt removed the collar herself.. 12:41 Jonelle Clancy, ANUEL is Primary Nurse. jl7 12:51 No provider procedures requiring assistance completed. IV discontinued, intact, jl7 bleeding controlled, No redness/swelling at site. Pressure dressing applied. Administered Medications: No medications were administered Medication: 12:49 VIS not applicable for this client. jl7 Outcome: 12:27 Discharge ordered by . cp 12:51 Discharged to home ambulatory. jl7 12:51 Condition: stable 12:51 Discharge instructions given to patient, family, Instructed on discharge instructions, follow up and referral plans. medication usage, Incentive spirometer Demonstrated understanding of instructions, follow-up care, medications, incentive spirometer Prescriptions given X 3. 12:52 Patient left the ED. jl7 Signatures: Dispatcher [employer] EDWA Floridalma Pulliam Amelia as Sergio Taylor PA PA Jonelle Santiago, ANUEL RN reyna7 Francine Draper RN RN ll1 Corrections: (The following items were deleted from the chart) 10:30 10:29 PSHx: Total abdominal hysterectomy; tevin abarca
--- NOTE | 2022-03-23 12:28 | EDPHYS ---
Physician Documentation [facility] Name: Christy Lazar Age: 57 yrs Sex: Female : 1965 Arrival Date: 03/23/2022 Time: 09:36 Bed DIS3 Private MD: Julio Cesar Quintero S ED Physician Sergio Mitchell HPI: 03/23 10:00 This 57 yrs old Female presents to ER via Ambulatory with complaints of Fall Injury - cp rib pain, Arm Pain, Hip Pain. 10:00 Details of fall: The patient fell from a height, while riding horse. cp 10:00 Onset: The symptoms/episode began/occurred 3 day(s) ago. cp 10:00 Associated injuries: The patient sustained neck injury, pain, injury to the low back, cp pain, injury to the chest, specifically the right lower lateral rib area. 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 - Social history:: Smoking status: Patient reports the use of cigarette tobacco products, smokes one pack cigarettes per day. Patient uses alcohol, on a daily basis. ROS: 10:05 Constitutional: Negative for body aches, chills, fever, poor PO intake. cp 10:05 Eyes: Negative for injury, pain, redness, and discharge. cp 10:05 Neck: Positive for bony tenderness. 10:05 Cardiovascular: Positive for chest pain, of the right lower rib pain. 10:05 Respiratory: Negative for cough, shortness of breath, wheezing. 10:05 Abdomen/GI: Negative for abdominal pain, nausea, vomiting, and diarrhea. 10:05 Back: Positive for pain at rest. 10:05 Neuro: Negative for altered mental status, dizziness, headache, loss of consciousness, numbness, weakness. 10:05 All other systems are negative. Exam: 10:10 Constitutional: The patient appears in no acute distress, alert, awake, cp non-diaphoretic, non-toxic, well developed, well nourished, uncomfortable. 10:10 Head/Face: Normocephalic, atraumatic. cp 10:10 Eyes: Periorbital structures: appear normal, Conjunctiva: normal, no exudate, no injection, Sclera: no appreciated abnormality, Lids and lashes: appear normal, bilaterally. 10:10 ENT: External ear(s): are unremarkable, Nose: is normal, Mouth: Lips: moist, Oral mucosa: moist, Posterior pharynx: Airway: no evidence of obstruction, patent. 10:10 Neck: C-spine: C-collar placed in ED, vertebral tenderness, that is mild, appreciated at C6 and C7, crepitus, is not appreciated, ROM/movement: pain, that is mild, with any movement, limited range of motion, is not appreciated, nuchal rigidity, is not appreciated. 10:10 Chest/axilla: Inspection: normal, Palpation: crepitus, is not appreciated, tenderness, that is moderate, of the right lower lateral chest wall. 10:10 Cardiovascular: Rate: tachycardic, Rhythm: regular, Edema: is not appreciated, JVD: is not appreciated. 10:10 Respiratory: the patient does not display signs of respiratory distress, Respirations: normal, no use of accessory muscles, no retractions, labored breathing, is not present, Breath sounds: are clear throughout, no decreased breath sounds, no stridor, no wheezing. 10:10 Abdomen/GI: Inspection: abdomen appears normal, Bowel sounds: active, all quadrants, Palpation: soft, in all quadrants, moderate abdominal tenderness, in the posterior aspect of right lateral abdomen and anterior aspect of right lateral abdomen. 10:10 Back: pain, that is moderate, of the right low back, ROM is painful, with all movement. 10:10 Musculoskeletal/extremity: Exam is negative for decreased range of motion, deformity. 10:10 Neuro: Orientation: to person, place \T\ time. Mentation: is normal, Motor: moves all fours, strength is normal, Sensation: is normal, Gait: is steady, without difficulty. Vital Signs: 10:27 BP 144 / 85; Pulse 108; Resp 17; Temp 97.8; Pulse Ox 100% ; Weight 78.02 kg; Height 5 jl7 ft. 8 in. (172.72 cm); Pain 12/15; 10:27 Body Mass Index 26.15 (78.02 kg, 172.72 cm) jl7 MDM: 10:34 Patient medically screened. candie 10:45 Differential diagnosis: closed head injury, contusion, fracture, multiple trauma. cp 12:25 Data reviewed: vital signs, nurses notes, lab test result(s), radiologic studies, CT cp scan. 12:25 Counseling: I had a detailed discussion with the patient and/or guardian regarding: the cp historical points, exam findings, and any diagnostic results supporting the discharge/admit diagnosis, lab results, radiology results, to return to the emergency department if symptoms worsen or persist or if there are any questions or concerns that arise at home. Response to treatment: the patient's symptoms have mildly improved after treatment, and as a result, I will discharge patient. 03/23 09:53 Order name: Basic Metabolic Panel; Complete Time: 12:19 cp 03/23 09:53 Order name: CBC with Diff cp 03/23 12:20 Interpretation: Normal except: HGB 16.4; HCT 48.7; MCV 112.2; MCH 37.9. cp 03/23 09:53 Order name: CT Traumagram (Head C Spine CAP W Con); Complete Time: 12:19 cp 03/23 11:09 Order name: CREATININE WHOLE BLOOD; Complete Time: 12:19 EDMS 03/23 12:29 Order name: CBC Smear Scan EDMS 03/23 09:53 Order name: Labs collected and sent; Complete Time: 10:56 cp Administered Medications: No medications were administered Disposition: 03/24 09:31 Co-signature as Attending Physician, Sergio Mitchell MD I agree with the assessment and [facility] plan of care. Disposition Summary: 03/23/22 12:27 Discharge Ordered Location: Home cp Problem: new cp Symptoms: have improved cp Condition: Stable cp Diagnosis - Fracture of one rib, right side cp - Animal-rider injured by fall from or being thrown from horse in noncollision cp accident, initial encounter - Cervicalgia cp - Dorsalgia, unspecified cp Followup: cp - With: Private Physician - When: 2 - 3 days - Reason: Recheck today's complaints Discharge Instructions: - Discharge Summary Sheet cp - Acute Back Pain, Adult cp - Musculoskeletal Pain cp - Rib Fracture cp - Neck Exercises cp Forms: - Medication Reconciliation Form cp - Thank You Letter cp - Antibiotic Education cp - Prescription Opioid Use cp - Work release form jl7 Prescriptions: - Ibuprofen 800 mg Oral Tablet - take 1 tablet by ORAL route every 8 hours As needed take with food; 30 tablet; cp Refills: 0, Product Selection Permitted - Tramadol 50 mg Oral Tablet - take 1 tablet by ORAL route every 8 hours as needed; 12 tablet; Refills: 0, cp Product Selection Permitted - Cyclobenzaprine 10 mg Oral Tablet - take 1 tablet by ORAL route every 8 hours As needed; 30 tablet; Refills: 0, cp Product Selection Permitted Signatures: Dispatcher [employer] EDSurekha Culver Corey, MD MD cha Page, Corey PA PA Jonelle Santiago RN RN jl7 Corrections: (The following items were deleted from the chart) 03/23 10:30 10:29 PSHx: Total abdominal hysterectomy; 12:48 10:59 Labs - recollect needed ordered. jl7
[2022-03-23 13:14] VITALS: BP 144/85; TEMP 97.8; O2SAT 100
== END 2022-03-23 12:52 | disposition home or self-care (01) ==
LOC: ER 09:34
DX: S22.31XA Fracture of one rib, right side, initial encounter for closed fracture (principal); M54.2 Cervicalgia; M54.9 Dorsalgia, unspecified; V80.010A Animal-rider injured by fall from or being thrown from horse in noncollision accident, initial encounter; F17.210 Nicotine dependence, cigarettes, uncomplicated; Z88.8 Allergy status to other drugs, medicaments and biological substances
CPT/HCPCS: 85025; 80048; 36415; 82565; 70450; 72125; 71260; 74177; 99284; Q9967

== ENCOUNTER 2022-03-27 20:29 | Emergency (ER) | payer OTHER ==
--- OUTSIDE RECORDS SUMMARY | 2022-03-27 20:33 | XMS REPORT | Continuity of Care Document ---
:[address] [facility] t Address [address] [place] [address] Care Team Providers Name Role Phone SHARONDA COWAN Primary Care Physician Unavailable STAR MENARD Attending Clinician Unavailable SHARONDA COWAN Attending Clinician Unavailable Sharonda Cowan MD Attending Clinician Star Menard MD Attending Clinician Roxi Sunshine Attending Clinician Pob, Adc Lab Main Attending Clinician Unavailable ROXI US Attending Clinician Unavailable Oralia Sky Attending Clinician ELENA HARRISON Attending Clinician Unavailable Elena Fajardo Attending Clinician Natalya Cantu Attending Clinician Lab, Ang - [place] Attending Clinician Unavailable Doctor Unassigned, [place] Attending Clinician Unavailable Kelsy Ford MA Attending Clinician Unavailable Rosa South MD Attending Clinician ORALIA ROBERT Attending Clinician Unavailable Scar Husain Attending Clinician SCAR ADAMES Attending Clinician Unavailable Marylou Santos Attending Clinician MARYLOU ALAN Attending Clinician Unavailable Provider, [facility] Attending Clinician Unavailable Lab, Adc Fam Pob I Attending Clinician Unavailable Mary Crocker PA-C Attending Clinician Ruy Alcala Attending Clinician RUY ELDRIDGE Attending Clinician Unavailable STAR MENARD Admitting Clinician Unavailable ROXI US Admitting Clinician Unavailable Payers Payer Name Policy Type Policy Number Effective Date Expiration Date Dulce shen [facility] [id number] 2021 PPO 00:00:00 [employer] [place] [id number] 2020 00:00:00 Problems Condition Condition Condition Status Onset Resolution Last Treating Co mments Source Name Details Category Date Date Treatment Clinician Date Encounter Encounter Disease Active Overview: Univers for for 8-24 Formattin ity of colorectal colorectal 00:00: g of this [place] cancer cancer 00 note Medical screening screening might be Br anch different from the original. Added automatic ally from request for surgery [id number] Elevated Elevated Disease Active Unive rs LFTs LFTs 7-23 ity of 00:00: [place] 00 Medical Branch Urge Urge Disease Active Univers incontinen incontinen 3-30 it y of ce of ce of 00:00: [place] urine urine 00 Medical Branch Hypothyroi Hypothyroi [...] sterolemia 3-30 it y of 00:00: [place] Medical [facility] Depression Depression Disease Active U [...] 00:00: [place] reaction 00 Medical s Branch Methylpr Propensi Active Hives 2020-05 Univer s ednisolo ty to 1-12 ity of ne adverse 00:00: [place] reaction 00 Medical s Branch METHYLPR DRUG Active Hives 2020-05 Univers EDNISOLO INGREDI 1-12 ity of NE 00:00: [place] 00 Medical Branch PREDNISO DRUG Active Anaphylaxis 2020-05 Uni vers NE INGREDI 1-04 ity of 00:00: [place] 00 Medical Branch Predniso Propensi Active Anaphylaxis 2020-05 U nivers ne ty to 1-04 ity of adverse 00:00: [place] reaction 00 Medical s Branch VARENICL DRUG Active Other-Cmnt 2018- Univ ers INE INGREDI 7-18 ity of [...] of tobacco Cigarette Smoker University of use [facility] Alcohol intake 2022-01-14 2022-01-14 3 /d University of 00:00:00 00:00:00 [facility] Exposure to 2021-12-14 2021-12-24 Not sure [facility] SARS-CoV-2 (event) 00:00:00 11:53:00 [facility] Tobacco use and 2021-11-11 2021-11-11 Smokeless Universit y of exposure 00:00:00 00:00:00 tobacco non-user [facility] dicnh Branch Cigarettes smoked 2021-11-11 2021-11-11 Univers ity of current (pack per 00:00:00 00:00:00 [facility] ) - Reported Branch Cigarette 2021-11-11 2021-11-11 University of pack-years 00:00:00 00:00:00 [facility] Sex [birth year] At [birth year] Universit y of 00:00:00 00:00:00 [facility] Smoking Status Start Date Stop Date Source Smokes tobacco daily 2021-11-11 00:00:00 [facility] Ordered Filled Start Stop Current Ordering Indication Dosage Frequency Signature Comments Components Source Medication Medication Date Date Medication? Clinician (SIG) Name Name SIENA 2021-05 Yes [id number] TAKE ONE Univers 10 mg 1-04 (1) TABLET ity of tablet 00:00: BY MOUTH [place] 00 DAILY. Medical Branch benzonatate Yes [id number] 200mg Take 1 Univers 200 mg 8-19 capsule by ity of capsule 00:00: mouth [address] [place] [address] ([facility]) Medical times [place] daily as needed for Cough. benzonatate Yes [id number] 200mg Take 1 Univers 200 mg 8-19 capsule by ity of capsule 00:00: mouth [address] [place] [address] (three) Medical times [place] daily as needed for Cough. benzonatate Yes [id number] 200mg Take 1 Univers 200 mg 8-19 capsule by ity of capsule 00:00: mouth [address] [place] [address] (three) Medical times [place] daily as needed for Cough. benzonatate Yes [id number] 200mg Take 1 Univers 200 mg 8-19 capsule by ity of capsule 00:00: mouth 3 [place] 00 (three) Medical times [place] daily as needed for Cough. amoxicillin 2021- No [id number] 1{tbl} Take 1 Univers -clavulanat 8-19 08-30 tablet by it y of e 00:00: 04:59 mouth in [place] (AUGMENTIN) 00 :00 the Medical 875-125 mg morning Branch per tablet and 1 tablet in the evening. Do all this for 10 days. ALBUTEROL Yes [id number] INHALE TWO Univers 90 8-15 (2) PUFFS ity of mcg/actuati 00:00: BY MOUTH [place] on inhaler 00 EVERY 6 Medica l (SIX) Branch HOURS NEEDED FOR WHEEZING. ALBUTEROL Yes [id number] INHALE TWO Univers 90 8-15 (2) PUFFS ity of mcg/actuati 00:00: [place] inhaler 00 EVERY 6 Medica l (SIX) Branch HOURS NEEDED FOR WHEEZING. ALBUTEROL Yes [id number] INHALE TWO Univers 90 8-15 (2) PUFFS ity of mcg/actuati 00:00: [place] inhaler 00 EVERY 6 Medica l (SIX) Branch HOURS NEEDED FOR WHEEZING. ALBUTEROL Yes [id number] INHALE TWO Univers 90 8-15 (2) PUFFS [...] AT BEDTIME NEEDED FOR INSOMNIA. ezetimibe Yes [id number] 10mg Take 1 Un ana (ZETIA) 10 7-12 tablet by ity of mg tablet 00:00[place] the Medical morning. Branch ezetimibe 2021-0 Yes [id number] 10mg Take 1 Un ana (ZETIA) 10 7-12 tablet by ity of mg tablet 00:00: [place] 00 the Medical morning. Branch ezetimibe 2021-0 Yes [id number] 10mg Take 1 Un ana (ZETIA) 10 7-12 tablet by ity of mg tablet 00:00: [place] 00 the Medical morning. Branch ezetimibe 2021-0 Yes [id number] 10mg Take 1 Un ana (ZETIA) 10 7-12 tablet by ity of mg tablet 00:00: [place] 00 the Medical morning. Branch levocetiriz 2021-0 Yes [id number] 5mg Take 1 Univers ine 5 mg 6-22 tablet by ity of tablet 00:00: mouth [place] 00 every Medical evening. Branch levocetiriz 2021-0 Yes [id number] 5mg Take 1 Univers ine 5 mg 6-22 tablet by ity of tablet 00:00: mouth [place] 00 every Medical evening. Branch levocetiriz 2021-0 Yes [id number] 5mg Take 1 Univers ine 5 mg 6-22 tablet by ity of tablet 00:00: mouth [place] 00 every Medical evening. Branch levocetiriz 2021-0 Yes [id number] 5mg Take 1 Univers ine 5 mg 6-22 tablet by ity of tablet 00:00: mouth [place] 00 every Medical evening. Branch montelukast 2021-0 Yes [id number] 10mg Take 1 Univers 10 mg 4-25 tablet by ity of tablet 00:00: mouth [place] 00 daily. Medical Branch desvenlafax 2021-0 Yes [id number] 100mg Take 1 Univers ine 4-25 tablet by ity of succinate 00:00: mouth [place] 100 mg 24 00 daily. Medical hr tablet Branch montelukast 2021-0 Yes [id number] 10mg Take 1 Univers 10 mg 4-25 tablet by ity of tablet 00:00: mouth [place] 00 daily. Medical Branch desvenlafax 2021-0 Yes [id number] 100mg Take 1 Univers ine 4-25 tablet by ity of succinate 00:00: mouth [place] 100 mg 24 00 daily. Medical hr tablet Branch montelukast 2022-0 Yes [id number] 10mg Take 1 Univers 10 mg 4-25 tablet by ity of tablet 00:00: mouth [place] 00 daily. Medical Branch desvenlafax 0 Yes [id number] 100mg Take 1 Univers ine 4-25 tablet by ity of succinate 00:00: mouth [place] 100 mg 24 00 daily. Medical hr tablet Branch desvenlafax Yes [id number] 100mg Take 1 Univers ine 4-25 tablet by ity of succinate 00:00: mouth [place] 100 mg 24 00 daily. Medical hr tablet Branch montelukast 2021- No [id number] 10mg Take 1 Univers 10 mg 4-25 11-04 tablet by ity of tablet 00:00: 00:00 mouth [place] 00 :00 daily. [facility] Immunizations Ordered Filled Immunization Date Status Comments [facility] e Immunization Name Name Pneumococcal 2021-11-11 Completed University o f Polysaccharide, 00:00:00 [place] Med ical PPSV23 (PNEUMOVAX) Branch Pneumococcal 2021-11-11 Completed University o f Polysaccharide, 00:00:00 [place] Med ical PPSV23 (PNEUMOVAX) Branch Pneumococcal 2021-11-11 Completed University o f Polysaccharide, 00:00:00 [place] Med ical PPSV23 (PNEUMOVAX) Branch Pneumococcal 2021-11-11 Completed University o f Polysaccharide, 00:00:00 [facility] [place] ical PPSV23 (PNEUMOVAX) Branch TDAP 2021-04-07 Completed University of 00:00:00 [facility] TDAP 2021-04-07 Completed University of 00:00:00 [facility] TDAP 2021-04-07 Completed University of 00:00:00 [facility] TDAP 2021-04-07 Completed University of 00:00:00 [facility] Zoster Vaccine 2018-05-03 Completed University of Recombinant 00:00:00 [facility] Zoster Vaccine 2018-05-03 Completed University of Recombinant 00:00:00 [facility] Zoster Vaccine 2018-05-03 Completed University of Recombinant 00:00:00 [facility] Zoster Vaccine 2018-05-03 Completed University of Recombinant 00:00:00 [facility] Influenza Virus 2018-02-27 Completed Universit y of Vaccine Quad IM 3+ 00:00:00 [facility] Zoster Vaccine 2018-02-27 Completed University of Recombinant 00:00:00 [facility] Influenza Virus 2018-02-27 Completed Universit y of Vaccine Quad IM 3+ 00:00:00 [facility] Zoster Vaccine 2018-02-27 Completed University of Recombinant 00:00:00 [facility] Influenza Virus 2018-02-27 Completed Universit y of Vaccine Quad IM 3+ 00:00:00 [facility] Zoster Vaccine 2018-02-27 Completed University of Recombinant 00:00:00 [facility] Influenza Virus 2018-02-27 Completed Universit y of Vaccine Quad IM 3+ 00:00:00 [facility] Zoster Vaccine 2018-02-27 Completed University of Recombinant 00:00:00 [facility] Vital Signs Vital Name Observation Time Observation Value Comments Source Systolic blood 2021-12-24 21:45:00 131 mm[Hg] [facility] Diastolic blood 2021-12-24 21:45:00 75 [facility] 2021-12-24 21:45:00 76 /min [facility] Body temperature 2021-12-24 21:45:00 36.39 Maria Esther [facility] Respiratory rate 2021-12-24 21:45:00 18 /min [facility] Body height 2021-12-24 21:45:00 172.7 cm [facility] Body weight 2021-12-24 21:45:00 77.747 kg [facility] BMI 2021-12-24 21:45:00 26.06 kg/m2 [facility] Oxygen saturation in 2021-12-24 21:45:00 95 /min [facility] blood by [facility] [place] [facility] Pulse oximetry Branch Procedures This patient has no known procedures. Encounters Start End Encounter Admission Attending Care Care Encounter Source Date/Time Date/Time Type Type Clinicians Facility Department ID 2022-02-18 Outpatient Jillian MENARD [facility] DONATO [id number] Univers 18:21:07 STAR hurd [facility] 2022-03-30 2022-03-30 Outpatient Jillian COWAN [facility] [id number] Univers 13:00:00 13:00:00 SHARONDA hurd [facility] 2022-03-11 2022-03-11 Brenda Cowan [facility] [id number] Univers 00:00:00 00:00:00 Sharonda HEALTH 350.1.13.10 it y of [place] [facility] 4.2.7.2.686 Art as SHANTEL?BLEA [id number] [address] 2022-02-21 2022-02-21 Telephone [facility] 1.2.840.114 [id number] Univers 00:00:00 00:00:00 Star GAGE 350.1.13.10 i ty [facility] 4.2.[place] [id number] [facility] [address] [facility] 2022-01-09 2022-01-09 Telephone [facility] [id number] Univers 00:00:00 00:00:00 Roxi A HEALTH 350.1.13.10 i ty of [place] 4.2.7.2.686 Art as SHANTEL?BLEA [id number] [address] 2022-01-07 2022-01-07 Cancer Program Consultant Lisa, Adc Lab Main [facility] [id number] Univers 08:00:00 08:15:00 Visit Roxi Us 350.1.13.10 ity of [place] 4[place]7.2.[place] [id number] [facility] [address] [facility] 2022-01-07 2022-01-07 Outpatient R MAGEN [facility] [id number] Univers 08:00:00 08:00:00 ROXI ity of [facility] 2022-01-03 2022-01-03 Telephone [facility] [id number] Univers 00:00:00 00:00:00 Oralia HEALTH 350.1.13.10 it y of [place] [facility] 4.2.7.2.686 Art as SHANTEL?BLEA [id number] [address] 2021-12-29 2021-12-29 [facility] 1.2.840.114 [id number] Univers 00:00:00 00:00:00 Surgery Star GAGE 350.1.13.10 i ty of [facility] 4.2.7.2.[place] [id number] Pr dical [facility] [address] [facility] 2021-12-29 2021-12-29 Telephone [facility] 1.2.840.114 [id number] Univers 00:00:00 00:00:00 Star GAGE 350.1.13.10 i ty of [place] 4.2.7.2.686 [place] [id number] [address] 2021-12-29 2021-12-29 Telephone [facility] [id number] Univers 00:00:00 00:00:00 Roxi A HEALTH 350.1.13.10 i ty of [place] 4.2.7.2.686 Art as SHNATEL?BLEA [phone] [facility] KASEY [address] [facility] OFFICE [facility] 2021-12-24 2021-12-24 [facility] [id number] Univers 15:15:00 16:18:46 ELENA peggytenisha o f [facility] 2021-12-24 2021-12-24 Office [facility] 1.2.840.114 [id number] Univers 15:15:00 16:18:46 Visit Elena MERARI 350.1.13.10 ity of [place] 4.2.[place].2.[place] [id number] [address] 2021-12-24 2021-12-24 Urgent [facility] 1.2.840.114 [id number] Univers 12:00:00 12:29:18 Care [facility] 350.1.13.10 i ty of [place] 4.2.7.2.686 Art as SHANTEL?BLEA [phone] [facility] KASEY [address] [facility] OFFICE [facility] 2021-12-19 2021-12-19 Refeduin [facility] 1.2.840.114 [id number] Univers 00:00:00 00:00:00 Sharonda HEALTH 350.1.13.10 it y of [place] 4.2.7.2.686 Art as SHANTEL?BLEA [id number] [address] MEDICAL OFFICE BUILDING 2021-12-10 2021-12-10 [facility] 1.2.840.114 [id number] Univers 14:33:15 23:59:00 Encounter Roxi A SPECIALTY 350.1.13.10 ity of [facility] [place] 4.2.7.2.[place] CENTER AT [id number] Pr melvinanh SOFIE [address] [facility] 2021-12-10 2021-12-10 [facility] [id number] Univers 14:26:16 14:32:00 ROXI ity of [facility] 2021-12-10 2021-12-10 [facility] 1.2.840.114 [id number] Univers 14:26:16 14:32:00 Encounter Roxi A SPECIALTY 350.1.13.10 ity of CARE 4.2.7.2.686 [facility] Austina s CENTER AT [id number] [address] 2021-12-08 2021-12-08 Outpatient [facility] [id number] Univers 17:07:43 23:59:00 ROXI ity of [facility] 2021-12-08 2021-12-08 [facility] 1.2.840.114 [id number] Univers 17:07:43 23:59:00 Encounter Roxi A [place] 350.1.13.10 ity of [facility] 4.2.7.2.686 [place] [id number] [facility] 806 [place] 2021-12-07 2021-12-07 [facility] 1.2.840.114 [id number] Univers 00:00:00 00:00:00 Sharonda HEALTH 350.1.13.10 it y of [place] 4.2.7.2.686 Art as SHANTEL?BLEA [id number] [address] MEDICAL OFFICE [facility] 2021-11-272021-11-27 Telephone [facility] [id number] Univers 00:00:00 00:00:00 Roxi A HEALTH 350.1.13.10 i ty of [place] 4.2.7.2.686 Art as SHANTEL?BLEA [id number] [address] MEDICAL OFFICE [facility] 2021-11-18 2021-11-18 Hospital MagenRUST 1.2.840.114 [id number] Univers 15:17:18 23:59:00 Encounter Roxi Arguelles [place] 350.1.13.10 ity of [facility] 4.2.7.2.686 [place] [id number] [address] 2021-11-18 2021-11-18 Outpatient [facility] [id number] Univers 15:17:18 23:59:00 ROXI ity [facility] 2021-11-18 2021-11-18 Cancer Program Consultant Lab, Ang - Db [facility] 1.2.840.1 [id number] Univers 13:45:00 13:45:00 Visit Camryn Sharonda HEALTH 350.1.13.10 ity of [place] 4.2.7.2.686 Art as SHANTEL?BLEA [id number] [facility] [address] [facility] OFFICE [facility] 2021-11-18 2021-11-18 Outpatient R [facility] [id number] Univers 00:00:00 00:00:00 ROXI ity [facility] 2021-11-18 2021-11-18 Refill [facility] 1.2.840.114 [id number] Univers 00:00:00 00:00:00 Sharonda HEALTH 350.1.13.10 it y of [place] 4.2.7.2.686 Art as SHANTEL?BLEA [phone] [address] OFFICE [facility] 2021-11-16 2021-11-16 Telephone [facility] [id number] Univers 00:00:00 00:00:00 Roxi A HEALTH 350.1.13.10 i ty of [place] 4.2.7.2.686 Art as SHANTEL?BLEA [id number] [facility] [address] [facility] OFFICE [facility] 2021-11-14 2021-11-14 Telephone [facility] [id number] Univers 00:00:00 00:00:00 Roxi Blane HEALTH 350.1.13.10 i ty of [place] 4.2.7.2.686 Art as SHANTEL?BLEA [phone] [address] OFFICE [facility] 2021-11-13 2021-11-13 Telephone [facility] [id number] Univers 00:00:00 00:00:00 Roxi A HEALTH 350.1.13.10 i ty of [place] 4.2.7.2.686 Art as SHANTEL?BLEA [id number] [address] 2021-11-11 2021-11-11 Cancer Program Consultant Lab, Ang - Db [facility] 1.2.840.1 [id number] Univers 10:00:00 10:39:46 Visit Roxi Us HEALTH 350.1.13.10 ity of [place] 4.2.7.2.686 Art as SHANTEL?BLEA [id number] [address] 2021-11-11 2021-11-11 Cancer Program Consultant Lab, Ang - Db [facility] 1.2.840.1 [id number] Univers 10:00:00 10:15:00 Visit Roxi Us A HEALTH 350.1.13.10 ity of [place] 4.2.7.2.686 Art as SHANTEL?BLEA [id number] [address] OFFICE [facility] 2021-11-11 2021-11-11 Outpatient R MAGEN [facility] [id number] Univers 10:00:00 10:00:00 ROXI hurd [facility] 2021-11-11 2021-11-11 Outpatient R MAGEN [facility] [id number] Univers 09:00:00 09:47:03 ROXI hurd [facility] 2021-11-11 2021-11-11 Outpatient [facility] [id number] Univers 09:00:00 09:47:03 ROXI hurd [facility] 2021-11-11 2021-11-11 Office [facility] 1.2.840.114 [id number] Univers 09:00:00 09:47:03 Visit Roxi Arguelles [facility] 350.1.13.10 i ty of [place] 4.2.7.2.686 Art as SHANTEL?BLEA [id number] [facility] [address] MEDICAL OFFICE BUILDING 2021-11-11 2021-11-11 Outpatient R [facility] [id number] Univers 09:00:00 09:47:03 ROXI hurd [facility] 2021-11-11 2021-11-11 Orders Doctor MARY 1.2.840.114 [id number] Univers 00:00:00 00:00:00 Only Unassigned, MUKESH 350.1.13.10 ity of [place] [facility] 4.2.7.2.686 Art as [id number] [facility] [address] [place] 2021-11-10 2021-11-10 Outpatient R [facility] [id number] Univers 09:45:00 09:45:00 ROXI hurd [facility] 2021-11-02 2021-11-02 Outpatient R [facility] [id number] Univers 08:30:00 08:30:00 SHARONDA hurd [facility] 2021-10-29 2021-10-29 Pre Visit MARITZA Ford [id number] Univers 00:00:00 00:00:00 Outreach Kelsy MANCIA 350.1.13.10 ity of [place]2.[place].2.[place] [id number] [facility] [address] [place] 2021-10-27 2021-10-27 Telephone [facility] [id number] [id number] Univers 00:00:00 00:00:00 SharondaWhitevector 350.1.13.10 it y of [place] [facility] 4.2.7.2.686 Art as SHANTEL?BLEA [id number] [address] OFFICE [facility] 2021-10-19 2021-10-19 Refill Cowan [facility] 1.2.840.114 [id number] Univers 00:00:00 00:00:00 Sharonda HEALTH 350.1.13.10 it y of [place] [facility] 4.2.7.2.686 Art as SHANTEL?BLEA [id number] [address] OFFICE [facility] 2021-09-13 2021-09-13 Outpatient R CAMRYN [facility] [id number] Univers 08:00:00 08:00:00 SHARONDA peggytenisha [facility] 2021-08-30 2021-08-30 Office [facility] 1.2.840.114 [id number] Univers 12:45:00 13:00:00 Visit [facility] 350.1.13.10 it y of [place] 4.2.7.2.686 Art as SHANTEL?BLEA [id number] [address] OFFICE [facility] 2021-08-30 2021-08-30 Outpatient Jillian [facility] [id number] Univers 12:45:00 12:45:00 [facility] 2021-08-30 2021-08-30 Orders Doctor MARY 1.2.840.114 [id number] Univers 00:00:00 00:00:00 Only Unassigned, MUKESH 350.1.13.10 ity of [place] [facility] 4.2.7.2.686 Art as [id number] [address] 2021-08-25 2021-08-25 Telephone [facility] [id number] [id number] Univers 00:00:00 00:00:00 Sharonda HEALTH 350.1.13.10 it y of [place] [facility] 4.2.7.2.686 Art as SHANTEL?BLEA [id number] [address] OFFICE [facility] 2021-07-30 2021-07-30 Refill Magen [facility] 1.2.840.114 [id number] Univers 00:00:00 00:00:00 Roxi A HEALTH 350.1.13.10 i ty of [place] 4.2.7.2.686 Art as SHANTEL?BLEA [id number] [address] OFFICE [facility] 2021-07-29 2021-07-29 Refeduin [place] [facility] 1.2.840.114 [id number] Univers 00:00:00 00:00:00 Wondiful A HEALTH 350.1.13.10 ity of [place] 4.2.7.2.686 Art as SHANTEL?BLEA [id number] [address] OFFICE [facility] 2021-07-26 2021-07-26 Refeduin [facility] 1.2.840.114 [id number] Univers 00:00:00 00:00:00 Roxi A HEALTH 350.1.13.10 i ty of [place] 4.2.7.2.686 Art as SHANTEL?BLEA [id number] [address] 2021-07-22 2021-07-22 Refeduin [facility] 1.2.840.114 [id number] Univers 00:00:00 00:00:00 Sharonda HEALTH 350.1.13.10 it y of [place] 4.2.7.2.686 Art as SHANTEL?BLEA [id number] [address] 2021-07-19 2021-07-19 Outpatient Jillian [facility] [id number] Univers 08:30:00 08:56:57 SHARONDA hurd [facility] 2021-07-12 2021-07-12 Outpatient Jillian ROBERT [facility] [id number] Univers 15:30:00 16:14:10 ORALIA hurd [facility] 2021-07-08 2021-07-08 Outpatient Jillian US [facility] [id number] Univers 13:00:00 13:43:31 ROXI hurd [facility] 2021-07-08 2021-07-08 Orders Doctor HERNANDEZ 1.2.840.114 [id number] Univers 00:00:00 00:00:00 Only Unassigned, MUKESH 350.1.13.10 ity of [place] [facility] [id number] Art as [phone] [address] 2021-03-19 2021-03-19 Telephone Camryn [facility] [id number] Univers 00:00:00 00:00:00 [facility] 350.1.13.10 it y of [place] [facility] [id number] Art as SHANTEL?BLEA [phone] [address] MEDICAL OFFICE BUILDING 2021-03-11 2021-03-11 Urgent [facility] 1.2.840.114 [id number] Univers 18:56:06 19:16:06 [place] [address]..13.10 it y of [place] 4.2.7.2.686 Art as SHANTEL?BLEA [phone] [facility] [address] [facility] OFFICE [facility] 2021-03-11 2021-03-11 Outpatient R JUAN [facility] [id number] Univers 19:00:00 19:00:[address] [facility] 2021-03-09 2021-03-09 Outpatient R CAMRYN [facility] [id number] Univers 10:15:00 10:49:43 [facility] 2021-03-09 2021-03-09 Office [facility] 1.2.840.114 [id number] Univers 10:22:52 10:37:52 Visit [place] [address]..13.10 it y of [place] 4.2.7.2.686 Art as SHANTEL?BLEA [phone] [address] MEDICAL OFFICE [facility] 2021-03-09 2021-03-09 [facility] [id number] Univers 10:15:00 10:15:00 [facility] 2021-03-09 2021-03-09 Letter [facility] 1.2.840.114 [id number] Univers 00:00:00 00:00:00 (Out) [facility] [id number] it y of [place] [facility] [id number] Art as SHANTEL?BLEA [phone] Me jolene FERGUSON [address] MEDICAL OFFICE [facility] 2021-03-08 2021-03-08 Outpatient R CAMRYN [facility] [id number] Univers 12:00:00 12:00:00 SHARONDA tenisha [facility] 2021-03-05 2021-03-05 Urgent Natalya Darden [facility] 1.2.840. 114 [id number] Univers 09:26:30 09:55:51 Care Dayanna [facility] [id number] ity of [place] [facility] [id number] Art as SHANTEL?BLEA [phone] Pr jolene FERGUSON [address] [facility] OFFICE [facility] 2021-03-05 2021-03-05 Outpatient R DAYANNA [facility] [id number] Univers 09:20:00 09:55:[address] [facility] 2021-03-05 2021-03-05 Letter Provider, [facility] [id number] Univers 00:00:00 00:00:00 (Out) [facility] 350.1.13.10 it y of Urgent Care [place] 4.2.7.2.686 [place] SHANTEL?BLEA [phone] Pr joleen FERGUSON [address] [facility] OFFICE [facility] 2020-12-18 2020-12-18 Telephone [facility] [id number] Univers 00:00:00 00:00:00 [facility] [id number] it y of [place] [id number] Art as Professio [phone] Pr jolene nal [address] [place] [address] Office [facility] 2020-12-14 2020-12-14 Telephone [facility] [id number] Univers 00:00:00 00:00:00 [facility] 350.1.13.10 it y of [place] [id number] Art as Professio [phone] Pr jolene nal [address] [place] [address] Office [facility] 2020-12-11 2020-12-11 Telephone [facility] [id number] Univers 00:00:00 00:00:00 [facility] 350.1.13.10 it y of [place] 4.2.7.2.686 Art as Professio [phone] [address] One 2020-12-07 2020-12-07 Office [facility] 1.2.840.114 [id number] Univers 09:27:42 09:42:42 Visit [facility] 350.1.13.10 it y of [place] 4.2.7.2.686 Art as Professio [phone] [address] One 2020-12-07 2020-12-07 Outpatient R [facility] [id number] Univers 09:30:00 09:30:00 SHARONDA hurd [facility] 2020-10-14 2020-10-14 Office [facility] 1.2.840.114 [id number] Univers 13:58:01 14:13:01 Visit [facility] 350.1.13.10 it y of [place] 4.2.7.2.686 Art as Professio [phone] [address] One 2020-10-14 2020-10-14 Outpatient R [facility] [id number] Univers 14:00:00 14:00:00 SHARONDA hurd [facility] 2020-10-14 2020-10-14 Telephone [facility] [id number] Univers 00:00:00 00:00:00 [facility] 350.1.13.10 it y of [place] 4.2.7.2.686 Art as Professio [phone] [address] Office [facility] 2020-10-14 2020-10-14 Letter [facility] 1.2.840.114 [id number] Univers 00:00:00 00:00:00 (Out) [facility] 350.1.13.10 it y of [place] 4.2.7.2.686 Art as Professio [phone] [address] Office [facility] 2020-10-14 2020-10-14 Telephone [facility] [id number] Univers 00:00:00 00:00:00 [facility] 350.1.13.10 it y of [place] 4.2.7.2.686 Art as Professio [phone] Pr dical nal [address] One 2020-09-28 2020-09-28 Telephone Camryn [facility] [id number] Univers 00:00:00 00:00:00 [facility] 350.1.13.10 it y of [place] 4.2.7.2.686 Art as Professio [phone] Pr dical nal [address] [place] [facility] 2020-09-23 2020-09-23 Cancer Program Consultant Lab, Adc Fam Pob I [facility] 1.2. 840.114 [id number] Univers 08:29:04 08:49:04 Visit Sharonda Cowan [facility] 350.1.13.10 ity of [place] 4.2.7.2.686 Atr as Professio [phone] Pr dical nal [address] [place] [address] Office Building [facility] 2020-09-23 2020-09-23 Office [facility] 1.2.840.114 [id number] Univers 07:53:53 08:23:53 Visit [facility] 350.1.13.10 it y of [place] 4.2.7.2.686 Art as Professio [phone] Pr dical nal [address] [place] [address] Office [facility] 2020-09-23 2020-09-23 Outpatient R [facility] [id number] Univers 08:00:00 08:00:00 SHARONDA hurd of [facility] 2020-05-06 2020-05-06 Urgent Mary Crocker [facility] 1.2.840.114 [id number] Univers 16:39:37 16:59:[address] [facility] 350.1.13.10 ity of [place] 4.2.7.2.686 Art as Professio [phone] Pr dical nal [address] [place] [address] Office [facility] 2020-05-06 2020-05-06 Outpatient R STEVIE [facility] [id number] Univers 16:40:00 16:40:00 RUY angulo [facility] 2020-05-06 2020-05-06 Letter Doctor MARY 1.2.840.114 [id number] Univers 00:00:00 00:00:00 (Out) Unassigned, MUKESH 350.1.13.10 ity of [place] [facility] 4.2.7.2.686 Art as [phone] [address] 2019-09-04 2019-09-04 Melloeduin [facility] 1.2.840.114 [id number] Univers 00:00:00 00:00:00 [facility] 350.1.13.10 it y of [place] 4.2.7.2.686 Art as Professio [phone] [address] Office [facility] 2019-08-09 2019-08-09 Brenda Tiwariers [facility] 1.2.840.114 [id number] Univers 00:00:00 00:00:00 [facility] 350.1.13.10 it y of [place] 4.2.7.2.686 Art as Professio [phone] [address] Office [facility] 2019-07-24 2019-07-24 Brenda [facility] 1.2.840.114 [id number] Univers 00:00:00 00:00:00 [facility] 350.1.13.10 it y of [place] 4.2.7.2.686 Art as Professio [phone] [address] Office [facility] 2019-07-19 2019-07-19 Brenda [facility] 1.2.840.114 [id number] Univers 00:00:00 00:00:00 [facility] 350.1.13.10 it y of [place] 4.2.7.2.686 Art as Professio [phone] [address] One 2019-06-25 2019-06-25 Brenda [facility] 1.2.840.114 [id number] Univers 00:00:00 00:00:00 [facility] 350.1.13.10 it y of [place] 4.2.7.2.686 Art as Professio [phone] [address] Office [facility] 2019-05-22 2019-05-22 Refill Camryn [facility] 1.2.840.114 [id number] Univers 00:00:00 00:00:00 [facility] 350.1.13.10 it y of [place] 4.2.7.2.686 Art as Professio [phone] Pr dic[address] Office Building [facility] 2018-12-27 2018-12-27 Office Camryn [facility] 1.2.840.114 [id number] Univers 09:52:49 10:19:38 Visit [facility] 350.1.13.10 it y of [place] 4.2.7.2.686 Art as Professio [phone] [address] One 2018-12-24 2018-12-24 Telephone Camryn [facility] [id number] Univers 00:00:00 00:00:00 [facility] 350.1.13.10 it y of [place] 4.2.7.2.686 Art as Professio [phone] [address] Office [facility] Results This patient has no known results.
--- NOTE | 2022-03-27 22:09 | RAD REPORT ---
EXAM DESCRIPTION: RAD - Chest Pa And Lat (2 Views) - 03/27/2022 10:02 pm CLINICAL HISTORY: COUGH Chest pain. COMPARISON: Head C Spine Cap W Con dated 03/23/2022 TECHNIQUE: PA and lateral views of the chest were obtained. FINDINGS: The lungs are hyperexpanded compatible with COPD. Mild opacity in the right posterior gutt er noted. The heart is upper limit of normal in size. No fracture or aggressive bony process. IMPRESSION: COPD. Small early infiltrate possible posterior right gutter.
[2022-03-27 22:56] LABS: SARS-COV-2 RT PCR NEGATIVE (NEGATIVE)
--- NOTE | 2022-03-27 23:05 | ER ---
Nurse's Notes [facility] Name: Christy Lazar Age: 57 yrs Sex: Female : 1965 Arrival Date: 03/27/2022 Time: 20:35 Bed DIS3 Private MD: Diagnosis: Other pneumonia, unspecified organism Presentation: 03/27 21:19 Chief complaint: Patient states: "I was here on Monday with a broken rib and now I'm as6 coughing and I can just taste the infection". Coronavirus screen: At this time, the client does not indicate any symptoms associated with coronavirus-19. Ebola Screen: No symptoms or risks identified at this time. Initial Sepsis Screen: Does the patient meet any 2 criteria? No. Patient's initial sepsis screen is negative. Does the patient have a suspected source of infection? No. Patient's initial sepsis screen is negative. Risk Assessment: Do you want to hurt yourself or someone else? Patient reports no desire to harm self or others. Onset of symptoms was March 22, 2022. 21:19 Method Of Arrival: Ambulatory as6 21:19 Acuity: LISA 3 as6 Triage Assessment: 21:21 General: Appears uncomfortable, Behavior is calm, cooperative. Pain: Complains of pain as6 in chest. Respiratory: Reports cough that is. 23:21 Respiratory: Breath sounds are coarse. 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 Flu vaccine is not up to date. - Social history:: Smoking status: Patient reports the use of cigarette tobacco products, smokes one-half pack cigarettes per day, smokes one pack cigarettes per day. Screenin:21 Abuse screen: Denies threats or abuse. Denies injuries from another. Nutritional tw5 screening: No deficits noted. Tuberculosis screening: No symptoms or risk factors identified. Fall Risk None identified. Assessment: 23:22 Cardiovascular: Capillary refill < 3 seconds. tw5 Vital Signs: 21:19 BP 121 / 76; Pulse 115; Resp 18 S; Temp 99.1(O); Pulse Ox 92% on R/A; Weight 78.02 kg as6 (R); Height 5 ft. 8 in. (172.72 cm) (R); Pain 8/10; 21:19 Body Mass Index 26.15 (78.02 kg, 172.72 cm) as6 ED Course: 20:35 Patient arrived in ED. as 20:44 Sergio Taylor PA is PHCP. cp 20:45 Mindi Valderrama MD is Attending Physician. cp 21:21 Triage completed. as6 21:21 Arm band placed on. as6 22:04 XRAY Chest Pa And Lat (2 Views) In Process Unspecified. EDMS 23:21 Patient has correct armband on for positive identification. tw5 23:21 No provider procedures requiring assistance completed. Patient did not have IV access tw5 during this emergency room visit. Administered Medications: 23:19 Drug: LevaQUIN (levofloxacin) 500 mg Route: PO; tw5 Medication: 23:22 VIS not applicable for this client. tw5 Outcome: 23:04 Discharge ordered by . cp 23:21 Discharged to home ambulatory. tw5 23:21 Condition: good 23:21 Discharge instructions given to patient, Instructed on discharge instructions, follow up and referral plans. medication usage, IS Demonstrated understanding of instructions, follow-up care, medications, IS 23:22 Patient left the ED. tw5 Signatures: Dispatcher [employer] EDMS Adela Melgoza as Sergio Taylor PA PA Barbara Landers tw5 Fermin Burt, RN RN as6
--- NOTE | 2022-03-27 23:05 | EDPHYS ---
Physician Documentation [facility] Name: Christy Lazar Age: 57 yrs Sex: Female : 1965 Arrival Date: 03/27/2022 Time: 20:35 Bed DIS3 Private MD: ED Physician Mindi Valderrama HPI: 03/27 21:45 This 57 yrs old Female presents to ER via Ambulatory with complaints of Cough, cp Congestion, Shortness Of Breath. 21:45 The patient or guardian reports cough, that is intermittent, shortness of breath. cp Onset: The symptoms/episode began/occurred yesterday. 21:45 Severity of symptoms: in the emergency department the symptoms are unchanged, despite cp home interventions. Associated signs and symptoms: Pertinent positives: sore throat, Pertinent negatives: diarrhea, fever, vomiting. 21:45 Patient seen in this ED 03/23/2022 after fall from horse. Patient sustained right side cp rib fracture. 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 Flu vaccine is not up to date. - Social history:: Smoking status: Patient reports the use of cigarette tobacco products, smokes one-half pack cigarettes per day, smokes one pack cigarettes per day. ROS: 21:50 Constitutional: Negative for body aches, chills, fever, poor PO intake. cp 21:50 Eyes: Negative for injury, pain, redness, and discharge. cp 21:50 ENT: Positive for sore throat, Negative for drainage from ear(s), ear pain, difficulty swallowing, difficulty handling secretions. 21:50 Cardiovascular: Negative for chest pain, edema, palpitations. 21:50 Respiratory: Positive for cough, "sounds productive", Negative for shortness of breath, wheezing. 21:50 Abdomen/GI: Negative for abdominal pain, nausea, vomiting, and diarrhea. 21:50 Skin: Negative for rash. 21:50 Neuro: Negative for altered mental status, dizziness, headache, syncope, weakness. 21:50 All other systems are negative. Exam: 21:55 Constitutional: The patient appears in no acute distress, alert, awake, cp non-diaphoretic, non-toxic, well developed, well nourished. 21:55 Head/Face: Normocephalic, atraumatic. cp 21:55 Eyes: Periorbital structures: appear normal, Conjunctiva: normal, no exudate, no injection, Sclera: no appreciated abnormality, Lids and lashes: appear normal, bilaterally. 21:55 ENT: External ear(s): are unremarkable, Ear canal(s): are normal, clear, TM's: dullness, bilaterally, Nose: is normal, Mouth: Lips: moist, Oral mucosa: moist, Posterior pharynx: Airway: no evidence of obstruction, patent, erythema, that is mild, exudate, is not appreciated. 21:55 Neck: ROM/movement: is normal, is supple, no meningismus, no nuchal rigidity, Lymph nodes: no appreciated lymphadenopathy. 21:55 Chest/axilla: Inspection: normal. 21:55 Cardiovascular: Rate: tachycardic, Rhythm: regular. 21:55 Respiratory: the patient does not display signs of respiratory distress, Respirations: labored breathing, is not present, shallow respirations, that is mild, Breath sounds: decreased breath sounds, that are mild, throughout, rhonchi, are not appreciated, stridor, is not appreciated, wheezing: is not appreciated. 21:55 Abdomen/GI: Exam negative for discomfort, distension, guarding, Inspection: abdomen appears normal. 21:55 Skin: no rash present. 21:55 Neuro: Orientation: to person, place \\T\\ time. Mentation: is normal, Motor: moves all fours, strength is normal, Gait: is steady, at a normal pace, without difficulty. Vital Signs: 21:19 BP 121 / 76; Pulse 115; Resp 18 S; Temp 99.1(O); Pulse Ox 92% on R/A; Weight 78.02 kg as6 (R); Height 5 ft. 8 in. (172.72 cm) (R); Pain 8/10; 21:19 Body Mass Index 26.15 (78.02 kg, 172.72 cm) as6 MDM: 21:23 Patient medically screened. cp 22:00 Differential Diagnosis: Bronchitis Influenza Otitis Media Viral Syndrome Pneumonia. cp 23:04 Data reviewed: vital signs, nurses notes, lab test result(s), radiologic studies, plain cp films. 23:04 Test interpretation: by ED physician or midlevel provider: plain radiologic studies. cp Counseling: I had a detailed discussion with the patient and/or guardian regarding: the historical points, exam findings, and any diagnostic results supporting the discharge/admit diagnosis, lab results, radiology results, to return to the emergency department if symptoms worsen or persist or if there are any questions or concerns that arise at home. ED course: VSS. Patient appears non-toxic and no signs of respiratory distress. Will discharge to home for continued monitoring. 03/27 21:46 Order name: COVID-19/FLU A+B; Complete Time: 22:59 cp 03/27 22:59 Interpretation: Reviewed. 03/27 21:46 Order name: Strep; Complete Time: 22:42 cp 03/27 22:42 Interpretation: Reviewed. 03/27 21:46 Order name: XRAY Chest Pa And Lat (2 Views); Complete Time: 22:12 cp 03/27 22:12 Interpretation: Report reviewed. 03/27 22:34 Order name: Throat Culture EDMS Administered Medications: 23:19 Drug: LevaQUIN (levofloxacin) 500 mg Route: PO; tw5 Disposition Summary: 03/27/22 23:04 Discharge Ordered Location: Home cp Problem: new cp Symptoms: have improved cp Condition: Stable cp Diagnosis - Other pneumonia, unspecified organism cp Followup: cp - With: Private Physician - When: 2 - 3 days - Reason: Recheck today's complaints Discharge Instructions: - Discharge Summary Sheet cp - Community-Acquired Pneumonia, Adult cp Forms: - Medication Reconciliation Form cp - Thank You Letter cp - Antibiotic Education cp - Prescription Opioid Use cp - Work release form tw5 Prescriptions: - Bromfed DM 2-30-10 mg/5 mL Oral syrup - take 10 milliliter by ORAL route every 6 hours; 180 milliliter; Refills: 0, cp Product Selection Permitted - levofloxacin 500 mg Oral Tablet - take 1 tablet by ORAL route once daily for 7 days continue taking evening of cp 03/28/2022; 6 tablet; Refills: 0, Product Selection Permitted Signatures: Dispatcher [employer] EDMS Sergio Taylor PA PA cp Wood, Tiffany tw5 Fermin Burt RN RN as6 Corrections: (The following items were deleted from the chart) 22:00 21:22 Chest Single View+RAD.RAD.[email or web address] ordered. EDMS EDMS
[2022-03-27] MEDS ORDERED: levoFLOXacin 250 MG TAB ONE (23:13)
[2022-03-27 23:26] VITALS: BP 121/76; TEMP 99.1; O2SAT 92
== END 2022-03-27 23:22 | disposition home or self-care (01) ==
LOC: ER 20:29
DX: J18.8 Other pneumonia, unspecified organism (principal); Z20.822 Contact with and (suspected) exposure to COVID-19; F17.210 Nicotine dependence, cigarettes, uncomplicated; Z88.8 Allergy status to other drugs, medicaments and biological substances
CPT/HCPCS: 87070; 87081; 0240U; 71046; 99283

== ENCOUNTER 2024-07-20 20:58 | Emergency (ER) | payer OTHER, SELFPAY ==
--- OUTSIDE RECORDS SUMMARY | 2024-07-20 21:04 | XMS REPORT | Continuity of Care Document ---
Author Name Unknown Address [address] [facility] [address] [place] [address] [facility] Address [address] [facility] [address] [place] [address] Care Team Providers Care Speeder Hand Name Role Phone Leon TRACY, Blane Cerda Primary Care Physician [phone] KLARISSA MENARD Attending Clinician Unavailable CESAR BONILLA Attending Clinician UnavailCESAR Millan Attending Clinician Unavailshad blackwell RADIOLOGY Attending Clinician Unavailable Teagan PT, Bessy Attending Clinician UnavailCesar Millan MD Attending Clinician [phone] Emilia Clemens MA Attending Clinician UnavailRazia Montez MD Attending Clinician [phone] Julio Cesar Quintero MD Attending Clinician [phone] JULIO CESAR QUINTERO Attending Clinician Unavailable RAZIA BALLESTEROS Attending Clinician Unavail able Therapist, [facility] Respiratory Attending Clinician U ingrid Radiology Attending Clinician Unavailable SHIV GILL Silvestre Attending Clinician Unavailab le Lab, Ang - Db Attending Clinician Unavailable JAM KEBEDE Attending Clinician Unavailable BRADEN OROZCO Attending Clinician Unavailable Julio Cesar Quintero MD Attending Clinician [phone] Natalie Wills Attending Clinician [phone] Unknown, Attending Attending Clinician Unavailab NATALIE England Attending Clinician Unavailable ANGEL BURCH Attending Clinician UnaMADDIE Leahy Attending Clinician Unavailab chantelle Doctor Unassigned, [place] Attending Clinician U ingrid Ferrera RN, Maya Jarvis Attending Clinician Unavailabl e Lab, Ang - Db Attending Clinician Unavailable Klarissa Menard MD Attending Clinician [phone] Roxi Sunshine Attending Clinician [phone] Pob, [facility] Main Attending Clinician Unavailabl ROXI Chu Attending Clinician Unavailable Rylee Sky Attending Clinician + [phone] ELENA JOHNSTON Attending Clinician Unavaila Elena Díaz Attending Clinician [phone] Natalya Cantu Attending Clinician [phone] Kelsy Ford MA Attending Clinician Unavaila oanh South MD, Rosa Arguelles Attending Clinician + [phone] RYLEE HATCH Attending Clinician Unavailable Susana Husain Attending Clinician [phone] SUSANA ADAMES Attending Clinician Unavailable Adriana Santos Attending Clinician [phone] ADRIANA ALAN Attending Clinician Unavailable Provider, [facility] Attending Clinician Unavailable Lab, Adc Fam Pob I Attending Clinician Unavailab Isaac oTlentino PA-C Attending Clinician [phone] Maddie Alcala Attending Clinician + [phone] MADDIE HUBBARD Attending Clinician Unavailab KLARISSA Ny Admitting Clinician Unavailable JULIO CESAR QUINTERO Admitting Clinician Unavailable ROXI RAMIREZ Admitting Clinician Unavailable Payers Payer Name Policy Type Policy Number Effective Date Expirati on Date Source [facility] [id number] 2021 00:00:00 [employer] [id number] 2023 00:00:00 [employer] COMM [id number] 2023 00:00:00 [facility] 3 [id number] 2023 00:00:[address] [facility] [id number] 2020 00:00:00 Problems Condition Name Condition Details Condition Category Status Onset Date Resolution Date Last Treatment Date Treating Clinician Comments Source Vitamin B1 deficiency Vitamin B1 deficiency Disease Active 2- 00:00: 00 Layne Douglas Chronic obstructiv e pulmonary disease, unspecifie d COPD type Chronic obstructiv e pulmonary disease, unspecifie d COPD type Disease Active 2- 00:00: 00 [facility] Weakness Weakness Disease Active 2023-05 2- 00:00: 00 Layne Douglas Essential tremor Essential tremor Disease Active 2023-05 2- 00:00: 00 [facility] Anxiety Anxiety Disease Active 2023-05 0- 00:00: 00 Layne Douglas Cervical radiculopa thy Cervical radiculopa thy Disease Active 2023-05 0- 00:00: 00 Layne Douglas Lumbar radiculopa thy Lumbar radiculopa thy Disease Active 2023-05 0- 00:00: 00 Layne Douglas CTS (carpal tunnel syndrome) CTS (carpal tunnel syndrome) Disease Active 2023-05 0- 00:00: 00 Layne Douglas Essential tremor Essential tremor Disease Active 2023-05 0- 00:00: 00 Layne Douglas Paresthesi a of foot Paresthesi a of foot Disease Active 2023-05 0- 00:00: 00 Layne Douglas Shakes Shakes Disease Active 2023-05 0- 00:00: 00 Layne Douglas Hyperchole sterolemia Hyperchole sterolemia Disease Active 08-04 00:00: 00 Layne Douglas Hypothyroi dism Hypothyroi dism Disease Active 08-04 00:00: 00 Layne Douglas Depression Depression Disease Active 09-20 00:00: 00 Layne Douglas Cervical spondylosi s without myelopathy Cervical spondylosi s without myelopathy Disease Active 07-12 00:00: 00 Layne Douglas Left shoulder pain Left shoulder pain Disease Active 02-03 00:00: 00 [facility] Cough Cough Disease Resolve d 2023-05 00:00: 00 2024-03-01 00:00:00 2024-03-01 09:10:16 Layne Douglas Encounter for colorectal cancer screening Encounter for colorectal cancer screening Disease Resolve d 12-29 00:00: 00 2024-03-01 00:00:00 2024-03-01 09:26:39 Layne Douglas Elevated LFTs Elevated LFTs Disease Resolve d 11-27 00:00: 00 2024-03-01 00:00:00 2024-03-01 09:26:39 Layne Dogulas Urge incontinen ce of urine Urge incontinen ce of urine Disease Resolve d 08-04 00:00: 00 2024-03-01 00:00:00 2024-03-01 09:26:39 Layne Douglas Varicose veins of both lower extremitie s Varicose veins of both lower extremitie s Disease Resolve d 08-04 00:00: 00 2024-03-01 00:00:00 2024-03-01 09:26:39 Layne Douglas Skin lesion Skin lesion Disease Resolve d 08-04 00:00: 00 2024-03-01 00:00:00 2024-03-01 09:26:39 Layne Douglas Left shoulder pain Left shoulder pain Disease Resolve d 02-03 00:00: 00 2024-03-01 00:00:00 2024-03-01 09:26:39 Layne Douglas Allergies, Adverse Reactions, Alerts Allergy Name Allergy Type Status Severity Reaction(s) Onset Date Inactive Date Treating Clinician Comments Source Other Allergy to substanc e Active 2023-05 00:00: 00 Layne Douglas Primidon e Allergy to substanc e Active 2023-05 0 00:00: 00 Other Reaction( s): Confusion Mem[facility] Sae[facility] Epic Bupropio n Propensi ty to adverse reaction s Active Hives 3-03 00:00: 00 [facility] Epic Buspiron e Propensi ty to adverse reaction s Active Hives 3-03 00:00: 00 Layne Saez Epic BUSPIRON E DRUG INGREDI Active Hives 3-03 00:00: 00 [facility] BUPROPIO N DRUG INGREDI Active Hives 3 00:00: 00 [facility] Methylpr ednisolo ne Propensi ty to adverse reaction s Active Hives 2020-05 1 00:00: 00 Layne Saez Epic METHYLPR EDNISOLO NE DRUG INGREDI Active Hives 2020-05 00:00: 00 [facility] Predniso ne Propensi ty to adverse reaction s Active Anaphylaxis 2020-05 1 00:00: 00 Layne Saez Stella PREDNISO NE DRUG INGREDI Active Anaphylaxis 2020-05 00:00: 00 [facility] Predniso ne Propensi ty to adverse reaction s Active Anaphylaxis 2020-05 00:00: 00 [facility] Varenicl ine Propensi ty to adverse reaction s Active Other 11-22 00:00: 00 Anger, irritabil ity Layne Saez Epic VARENICL INE DRUG INGREDI Active Other-Cmnt 11-22 00:00: 00 [facility] Varenicl ine Propensi ty to adverse reaction s to drug Active Other - See comments 11-22 00:00: 00 Anger, irritabil ity [facility] Guaifene sin-Code ine Drug Intolera nce Active Swelling 2014-05 00:00: 00 Swelling in throat Layne Douglas CHERATUS SIN DRUG Active Swelling 2014-05 00:00: 00 [facility] Cheratus sin Propensi ty to adverse reaction s Active Swelling 2014-05 029 00:00: 00 Swelling in throat [facility] Social History Social Habit Start Date Stop Date Quantity Comments Source Gender identity 2023-07-30 02:33:40 Identifies as female gender (finding) [facility] History of tobacco use 1981-03-18 00:00:00 Cigarette Smoker [facility] López silvestre [facility] ASSERTION Possible [facility] Sexual orientation [facility] Alcoholic beverage intake 2024-07-03 00:00:00 2024-07-03 00:00:00 1.14 /d [facility] History of Social function 2024-07-03 00:00:00 2024-07-03 00:00:00 [facility] Cigarettes smoked current (pack per day) - Reported 2024-05-31 00:00:00 2024-05-31 00:00:00 [facility] Cigarette pack-years 2024-05-31 00:00:00 2024-05-31 00:00:00 [facility] Alcohol Comment 2024-03-01 00:00:00 2024-03-01 00:00:00 liquor daily [facility] Tobacco use and exposure 2023-10-02 00:00:00 2023-10-02 00:00:00 Smokeless tobacco non-user [facility] Alcohol intake 2022-11-28 00:00:00 2022-11-28 00:00:00 3 /d [facility] Exposure to SARS-CoV-2 (event) 2022-05-15 00:00:00 2022-05-25 07:47:00 Not sure [facility] Sex assigned at 1965 00:00:00 1965 00:00:00 [facility] Smoking Status Start Date Stop Date Source Smokes tobacco daily 2024-05-31 00:00:00 [facility] Medications Ordered Medication Name Filled Medication Name Start Date Stop Date Current Medication? Ordering Clinician Indication Dosage Frequency Signature (SIG) Comments Components Source thiamine (Vitamin B-1) 100 MG tablet thiamine (Vitamin B-1) 100 MG tablet 07-04 00:00: 00 07-04 23:59 :00 No 100mg QD Take 1 tablet by mouth 1 time each day. [facility] [place] [facility] Brinzolamid e-Brimonidi ne (SIMBRINZA OP) Brinzolamid e-Brimonidi ne (SIMBRINZA OP) 07-03 08:42: 47 Yes Administer into affected eye(s). Layne Douglas cetirizine (ZyrTEC) 10 MG tablet cetirizine (ZyrTEC) 10 MG tablet 07-03 08:41: 43 Yes 10mg QD Take 10 mg by mouth 1 time each day. Layne Douglas omeprazole (PriLOSEC) [address] capsule omeprazole (PriLOSEC) [address] capsule 07-03 08:40: 28 Yes 40mg Take 40 mg by mouth in the morning. Take before meals. Do not crush or chew. Layne Douglas albuterol 90 mcg/actuati on inhaler 07-03 00:00: 00 Yes [id number] INHALE TWO (2) PUFFS BY MOUTH EVERY 6 (SIX) HOURS NEEDED FOR WHEEZING. [facility] cefUROXime 500 mg tablet 07-03 00:00: 00 Yes [id number] 500mg Take 1 tablet by mouth in the morning and 1 tablet in the evening. [facility] acamprosate 333 MG EC tablet acamprosate 333 MG EC tablet 06-28 00:00: 00 Yes 2{tbl} [id number] 3D Take 2 tablets by mouth every 6 hours during the day. Layne Douglas albuterol 90 mcg/actuati on inhaler 06-18 00:00: 00 07-03 00:00 :00 No [id number] INHALE TWO (2) PUFFS BY MOUTH EVERY 6 (SIX) HOURS NEEDED FOR WHEEZING. [facility] ipratropium (Atrovent) 0.03 % nasal spray ipratropium (Atrovent) 0.03 % nasal spray 06-12 00:00: 00 Yes 2{spray } Administer 2 sprays into each nostril if needed. Layne Douglas traZODone 50 mg tablet 2023-05 09:38: 11 Yes 50mg Take 1 tablet by mouth at bedtime. 1/2 pill at bedtime [facility] montelukast 10 mg tablet 2023-05 00:00: 00 Yes [id number] TAKE ONE (1) TABLET(S) BY MOUTH ONCE A DAY. [facility] BUDESONIDE- FORMOTEROL 160-4.5 mcg/actuati on inhaler 2023-05 00:00: 00 Yes [id number] INHALE TWO (2) PUFF(S) BY MOUTH EVERY MORNING AND EVENING. [facility] LEVOTHYROXI NE 50 mcg tablet 2023-05 00:00: 00 Yes [id number] 50ug TAKE ONE (1) TABLET(S) BY MOUTH EVERY MORNING. [facility] MONTELUKAST 10 mg tablet 2023-05 00:00: 00 04-05 00:00 :00 No [id number] TAKE ONE (1) TABLET(S) BY MOUTH ONCE A DAY. [facility] propranoloL 20 mg tablet 2023-05 0 00:00: 00 03-02 04:59 :00 No 20mg Take 1 tablet by mouth every morning and evening. [facility] amoxicillin -clavulanat e (AUGMENTIN) 875-125 mg per tablet 2023-05 0- 00:00: 00 Yes [id number] 1{tbl} Take 1 tablet by mouth in the morning and 1 tablet in the evening. [facility] MONTELUKAST 10 mg tablet 02-04 00:00: 00 Yes [id number] TAKE ONE (1) TABLET(S) BY MOUTH ONCE A DAY. [facility] ezetimibe 10 mg tablet 01-25 00:00: 00 Yes [id number] 10mg TAKE ONE (1) TABLET(S) BY MOUTH EVERY MORNING. [facility] BUDESONIDE- FORMOTEROL 160-4.5 mcg/actuati on inhaler 01-04 00:00: 00 04-05 00:00 :00 No [id number] INHALE TWO (2) PUFF(S) BY MOUTH EVERY MORNING AND EVENING. [facility] MONTELUKAST 10 mg tablet 01-04 00:00: 00 02-04 00:00 :00 No [id number] TAKE ONE (1) TABLET(S) BY MOUTH ONCE A DAY. [facility] levothyroxi ne 50 mcg tablet 12-10 00:00: 00 04-05 00:00 :00 No [id number] 50ug TAKE ONE (1) TABLET(S) BY MOUTH EVERY MORNING. [facility] budesonide- formoteroL (SYMBICORT) 160-4.5 mcg/actuati on inhaler 10-09 00:00: 00 Yes [id number] 2{puff} Inhale 2 Puffs in the morning and 2 Puffs in the evening. [facility] cefUROXime 500 mg tablet 10-09 00:00: 00 Yes [id number] 500mg Take 1 tablet by mouth in the morning and 1 tablet in the evening. [facility] benzonatate 200 mg capsule 10-09 00:00: 00 Yes [id number] 200mg Take 1 capsule by mouth 3 (three) times daily as needed for Cough. [facility] levothyroxi ne 50 mcg tablet 10-09 00:00: 00 12-10 00:00 :00 No [id number] 50ug Take 1 tablet by mouth every morning. [facility] amoxicillin -clavulanat e (AUGMENTIN) 875-125 mg per tablet 10-01 00:00: 00 10-12 04:59 :00 No [id number] 1{tbl} Take 1 tablet by mouth in the morning and 1 tablet in the evening. Do all this for 10 days. [facility] fluconazole (DIFLUCAN) 150 mg tablet 10-01 00:00: 00 10-04 04:59 :00 No [id number] 150mg Take 1 tablet by mouth in the morning for 2 doses. [facility] albuterol 90 mcg/actuati on inhaler 2024-0 5-20 00:00: 00 06-18 00:00 :00 No [id number] INHALE TWO (2) PUFFS BY MOUTH EVERY 6 (SIX) HOURS NEEDED FOR WHEEZING. [facility] levothyroxi ne 50 mcg tablet 07-06 00:00: 00 10-09 00:00 :00 No [id number] 50ug TAKE ONE (1) TABLET(S) BY MOUTH EVERY MORNING. [facility] MONTELUKAST 10 mg tablet 2022-05 00:00: 00 Yes [id number] TAKE ONE (1) TABLET(S) BY MOUTH ONCE A DAY. [facility] propranolol (Inderal) 10 MG tablet propranolol (Inderal) 10 MG tablet 2022-05 00:00: 00 03-01 00:00 :00 No 10mg 10 mg = 1 tab, PO, BID, # 180 tab, 2 Refill(s), Pharmacy: [id number], 170.18, cm, 03/21/23 10:23:00 [employer], Height, 73.636, kg, 03/21/23 10:23:00 [employer], Weight Layne quach Se Douglas MONTELUKAST 10 mg tablet 2022-05 00:00: 00 Yes [id number] TAKE ONE (1) TABLET(S) BY MOUTH ONCE A DAY. [facility] ALBUTEROL 90 mcg/actuati on inhaler 2022-05 1-13 00:00: 00 09-24 00:00 :00 No [id number] INHALE TWO (2) PUFFS BY MOUTH EVERY 6 (SIX) HOURS NEEDED FOR WHEEZING. [facility] MONTELUKAST 10 mg tablet 2022-05 0-30 00:00: 00 04-03 00:00 :00 No [id number] TAKE ONE (1) TABLET(S) BY MOUTH ONCE A DAY. [facility] MONTELUKAST 10 mg tablet 9-15 00:00: 00 03-06 00:00 :00 No [id number] TAKE ONE (1) TABLET(S) BY MOUTH ONCE A DAY. [facility] hydrOXYzine HCl (Atarax) 50 MG tablet hydrOXYzine HCl (Atarax) 50 MG tablet 12-19 00:00: 00 Yes TAKE ONE (1) TABLET(S) BY MOUTH THREE TIMES A DAY [facility]XIETY[facility] levothyroxi ne (Synthroid, Levoxyl) 50 MCG tablet levothyroxi ne (Synthroid, Levoxyl) 50 MCG tablet 12-19 00:00: 00 Yes TAKE ONE (1) TABLET(S) BY MOUTH EVERY MORNING. [facility] naltrexone (Depade) 50 MG tablet naltrexone (Depade) 50 MG tablet 12-19 00:00: 00 Yes TAKE ONE (1) TABLET(S) BY MOUTH ONCE A DAY. [facility] main Saez [facility] ezetimibe (Zetia) 10 MG tablet ezetimibe (Zetia) 10 MG tablet 12-19 00:00: 00 Yes TAKE ONE (1) TABLET(S) BY MOUTH EVERY MORNING. [facility] main Saez [facility] MONTELUKAST 10 mg tablet 14 00:00: 00 01-20 00:00 :00 No [id number] TAKE ONE (1) TABLET(S) BY MOUTH ONCE A DAY. [facility] MONTELUKAST 10 mg tablet 11-28 00:00: 00 Yes [id number] TAKE ONE (1) TABLET(S) BY MOUTH ONCE A DAY. [facility] ezetimibe (ZETIA) 10 mg tablet 11-28 00:00: 00 01-25 00:00 :00 No [id number] 10mg Take 1 tablet by mouth in the morning. [facility] levothyroxi ne (SYNTHROID) 50 mcg tablet 11-28 00:00: 00 07-06 00:00 :00 No [id number] 50ug Take 1 tablet by mouth every morning. [facility] albuterol 90 mcg/actuati on inhaler 11-28 00:00: 00 03-20 00:00 :00 No [id number] INHALE TWO (2) PUFFS BY MOUTH EVERY 6 (SIX) HOURS NEEDED FOR WHEEZING. [facility] PAROXETINE HCL PO PAROXETINE HCL PO 11-14 00:00: 00 Yes 40mg Take 40 mg by mouth every morning. Layne Saez Epic PARoxetine (Paxil) 10 MG tablet PARoxetine (Paxil) 10 MG tablet 11-14 00:00: 00 Yes 50mg 50 mg. Layne Saez [facility] MONTELUKAST SODIUM PO MONTELUKAST SODIUM PO 11-14 00:00: 00 03-01 00:00 :00 No 70mg Take by mouth. [facility] main Saez Epic MONTELUKAST 10 mg tablet 10-27 00:00: 00 11-28 00:00 :00 No [id number] TAKE ONE (1) TABLET(S) BY MOUTH ONCE A DAY. [facility] methocarbam oL 500 mg tablet 10-13 00:00: 00 Yes [id number] 500mg Take 1 tablet by mouth 4 (four) times daily. [facility] amoxicillin -clavulanat e (AUGMENTIN) 875-125 mg per tablet 10-13 00:00: 00 Yes [id number] 1{tbl} Take 1 tablet by mouth in the morning and 1 tablet in the evening. [facility] ondansetron 4 mg disintegrat ing tablet 10-13 00:00: 00 Yes [id number] 4mg Take 1 tablet by mouth every 8 (eight) hours as needed for Nausea and Vomiting (N/V). [facility] albuterol 90 mcg/actuati on inhaler 10-13 00:00: 00 11-28 00:00 :00 No [id number] INHALE TWO (2) PUFFS BY MOUTH EVERY 6 (SIX) HOURS NEEDED FOR WHEEZING. [facility] MONTELUKAST 10 mg tablet 4-12 00:00: 00 10-27 00:00 :00 No [id number] TAKE ONE (1) TABLET(S) BY MOUTH ONCE A DAY. [facility] MONTELUKAST 10 mg tablet 3-08 00:00: 00 Yes [id number] TAKE ONE (1) TABLET(S) BY MOUTH ONCE A DAY. [facility] MONTELUKAST 10 mg tablet 2-10 00:00: 00 Yes [id number] TAKE ONE (1) TABLET(S) BY MOUTH ONCE A DAY. [facility] levoFLOXaci n 500 mg tablet 1 00:00: 00 04-17 00:00 :00 No [id number] TAKE ONE (1) TABLET(S) BY MOUTH DAILY FOR SEVEN DAYS. CONTINUE TAKING EVENING OF 03/28/2022 . [facility] ALBUTEROL 90 mcg/actuati on inhaler 05-27 00:00: 00 10-13 00:00 :00 No [id number] INHALE TWO (2) PUFFS BY MOUTH EVERY 6 (SIX) HOURS NEEDED FOR WHEEZING. [facility] cefUROXime 500 mg tablet 05-25 00:00: 00 10-09 00:00 :00 No [id number] 500mg Take 1 tablet by mouth in the morning and 1 tablet in the evening. [facility] MONTELUKAST 10 mg tablet 05-13 00:00: 00 06-17 00:00 :00 No [id number] TAKE ONE (1) TABLET(S) BY MOUTH ONCE A DAY. [facility] MONTELUKAST 10 mg tablet 2021-05 2- 00:00: 00 05-13 00:00 :00 No [id number] TAKE ONE (1) TABLET(S) BY MOUTH ONCE A DAY. [facility] albuterol 90 mcg/actuati on inhaler 2021-05- 00:00: 00 05-27 00:00 :00 No [id number] INHALE TWO (2) PUFFS BY MOUTH EVERY 6 (SIX) HOURS NEEDED FOR WHEEZING. [facility] bromphenira mine-pseudo ephedrine-D M 2-30-10 mg/5 mL syrup 2021-05 00:00: 00 10-09 00:00 :00 No TAKE 10 ML(S) BY MOUTH EVERY SIX HOURS. [facility] levoFLOXaci n 500 mg tablet 2021-05 00:00: 00 06-06 00:00 :00 No TAKE ONE (1) TABLET(S) BY MOUTH DAILY FOR SEVEN DAYS. CONTINUE TAKING EVENING OF 03/28/2022 . [facility] ibuprofen 800 mg tablet 2021-05 00:00: 00 Yes TAKE ONE (1) TABLET(S) BY MOUTH EVERY EIGHT HOURS NEEDED PAIN. [facility] traMADoL 50 mg tablet 2021-05 00:00: 00 Yes TAKE ONE (1) TABLET(S) BY MOUTH EVERY EIGHT HOURS. [facility] cyclobenzap rine 10 mg tablet 2021-05 00:00: 00 10-13 00:00 :00 No TAKE ONE (1) TABLET(S) BY MOUTH EVERY EIGHT HOURS NEEDED FOR MUSCLE SPASMS. [facility] MONTELUKAST 10 mg tablet 2021-05 00:00: 00 04-11 00:00 :00 No [id number] TAKE ONE (1) TABLET BY MOUTH DAILY. [facility] omeprazole 40 mg capsule 2021-05 0 00:00: 00 Yes TAKE ONE (1) CAPSULE(S) BY MOUTH ONCE A DAY IN THE MORNING. [facility] metoclopram ethel HCl 10 mg tablet 01-25 00:00: 00 Yes TAKE FOUR (4) TABLETS BY MOUTH DIRECTED; PER YOUR COLONOSCOP Y PREP PACKET. [facility] traZODone 50 mg tablet 9-10 00:00: 00 02-25 00:00 :00 No TAKE ONE-HALF (1/2) TABLET(S) BY MOUTH AT BEDTIME NEEDED FOR INSOMNIA. [facility] sodium,pota ssium,mag sulfates 17.5-3.13-1 .6 gram 8-26 00:00: 00 Yes TAKE 117 MLS BY MOUTH NOW FOR ONE DOSE. [facility] sodium,pota ssium,mag sulfates 17.5-3.13-1 .6 gram 8- 00:00: 00 Yes TAKE 117 MLS BY MOUTH NOW FOR ONE DOSE. [facility] benzonatate 200 mg capsule 12-24 00:00: 00 10-09 00:00 :00 No [id number] 200mg Take 1 capsule by mouth 3 (three) times daily as needed for Cough. [facility] amoxicillin -clavulanat e (AUGMENTIN) 875-125 mg per tablet 12-24 00:00: 00 01-04 04:59 :00 No [id number] 1{tbl} Take 1 tablet by mouth in the morning and 1 tablet in the evening. Do all this for 10 days. [facility] ALBUTEROL 90 mcg/actuati on inhaler 12-20 00:00: 00 03-30 00:00 :00 No [id number] INHALE TWO (2) PUFFS BY MOUTH EVERY 6 (SIX) HOURS NEEDED FOR WHEEZING. [facility] gabapentin 100 mg capsule 12-04 00:00: 00 03-30 00:00 :00 No TAKE ONE (1) CAPSULE(S) BY MOUTH ONCE A DAY AT BEDTIME NEEDED FOR INSOMNIA. [facility] ezetimibe (ZETIA) 10 mg tablet 11-16 00:00: 00 11-28 00:00 :00 No [id number] 10mg Take 1 tablet by mouth in the morning. [facility] levocetiriz ine 5 mg tablet 6- 00:00: 00 Yes [id number] 5mg Take 1 tablet by mouth every evening. [facility] desvenlafax ine succinate 100 mg 24 hr tablet 4- 00:00: 00 10-13 00:00 :00 No [id number] 100mg Take 1 tablet by mouth daily. [facility] montelukast 10 mg tablet 4-25 00:00: 00 03-11 00:00 :00 No [id number] 10mg Take 1 tablet by mouth daily. [facility] Immunizations Ordered Immunization Name Filled Immunization Name Date Status Comments Source Influenza Virus Vaccine Quad IM 3+ YRS 2024-01-26 00:00:00 Completed [facility] Zoster Vaccine Recombinant 2024-01-26 00:00:00 Completed [facility] TDAP 2024-01-26 00:00:00 Completed [facility] Pneumococcal Polysaccharide, PPSV23 (PNEUMOVAX) 2024-01-26 00:00:00 Completed [facility] Zoster Vaccine Recombinant 2023-12-10 00:00:00 Completed [facility] Influenza Virus Vaccine Quad IM 3+ YRS 2023-10-10 10:00:00 Completed [facility] TDAP 2023-10-10 10:00:00 Completed [facility] Pneumococcal Polysaccharide, PPSV23 (PNEUMOVAX) 2023-10-10 10:00:00 Completed [facility] Zoster Vaccine Recombinant 2023-10-10 10:00:00 Completed [facility] Influenza Virus Vaccine Quad IM 3+ YRS 2023-10-09 00:00:00 Completed [facility] Zoster Vaccine Recombinant 2023-10-09 00:00:00 Completed [facility] TDAP 2023-10-09 00:00:00 Completed [facility] Pneumococcal Polysaccharide, PPSV23 (PNEUMOVAX) 2023-10-09 00:00:00 Completed [facility] Influenza Virus Vaccine Quad IM 3+ YRS 2023-10-02 15:00:00 Completed [facility] Zoster Vaccine Recombinant 2023-10-02 15:00:00 Completed [facility] TDAP 2023-10-02 15:00:00 Completed [facility] Pneumococcal Polysaccharide, PPSV23 (PNEUMOVAX) 2023-10-02 15:00:00 Completed [facility] Influenza Virus Vaccine Quad IM 3+ YRS 2023-09-23 00:00:00 Completed [facility] Zoster Vaccine Recombinant 2023-09-23 00:00:00 Completed [facility] TDAP 2023-09-23 00:00:00 Completed [facility] Pneumococcal Polysaccharide, PPSV23 (PNEUMOVAX) 2023-09-23 00:00:00 Completed [facility] Influenza Virus Vaccine Quad IM 3+ YRS 2023-07-07 00:00:00 Completed [facility] Zoster Vaccine Recombinant 2023-07-07 00:00:00 Completed [facility] TDAP 2023-07-07 00:00:00 Completed [facility] Pneumococcal Polysaccharide, PPSV23 (PNEUMOVAX) 2023-07-07 00:00:00 Completed [facility] Influenza Virus Vaccine Quad IM 3+ YRS 2023-05-02 00:00:00 Completed [facility] Zoster Vaccine Recombinant 2023-05-02 00:00:00 Completed [facility] TDAP 2023-05-02 00:00:00 Completed [facility] Pneumococcal Polysaccharide, PPSV23 (PNEUMOVAX) 2023-05-02 00:00:00 Completed [facility] Influenza Virus Vaccine Quad IM 3+ YRS 2023-03-31 00:00:00 Completed [facility] Zoster Vaccine Recombinant 2023-03-31 00:00:00 Completed [facility] TDAP 2023-03-31 00:00:00 Completed [facility] Pneumococcal Polysaccharide, PPSV23 (PNEUMOVAX) 2023-03-31 00:00:00 Completed [facility] Influenza Virus Vaccine Quad IM 3+ YRS 2023-03-17 00:00:00 Completed [facility] Zoster Vaccine Recombinant 2023-03-17 00:00:00 Completed [facility] TDAP 2023-03-17 00:00:00 Completed [facility] Pneumococcal Polysaccharide, PPSV23 (PNEUMOVAX) 2023-03-17 00:00:00 Completed [facility] Influenza Virus Vaccine Quad IM 3+ YRS 2023-03-06 00:00:00 Completed [facility] Zoster Vaccine Recombinant 2023-03-06 00:00:00 Completed [facility] TDAP 2023-03-06 00:00:00 Completed [facility] Pneumococcal Polysaccharide, PPSV23 (PNEUMOVAX) 2023-03-06 00:00:00 Completed [facility] Influenza Virus Vaccine Quad IM 3+ YRS 2023-01-31 00:00:00 Completed [facility] Zoster Vaccine Recombinant 2023-01-31 00:00:00 Completed [facility] TDAP 2023-01-31 00:00:00 Completed [facility] Pneumococcal Polysaccharide, PPSV23 (PNEUMOVAX) 2023-01-31 00:00:00 Completed [facility] Influenza Virus Vaccine Quad IM 3+ YRS 2023-01-19 00:00:00 Completed [facility] Zoster Vaccine Recombinant 2023-01-19 00:00:00 Completed [facility] TDAP 2023-01-19 00:00:00 Completed [facility] Pneumococcal Polysaccharide, PPSV23 (PNEUMOVAX) 2023-01-19 00:00:00 Completed [facility] Pneumococcal Polysaccharide, PPSV23 (PNEUMOVAX) 2021-11-11 00:00:00 Completed [facility] Pneumococcal Polysaccharide, PPSV23 (PNEUMOVAX) 2021-11-11 00:00:00 Completed [facility] Pneumococcal Polysaccharide, PPSV23 (PNEUMOVAX) 2021-11-11 00:00:00 Completed [facility] Pneumococcal Polysaccharide, PPSV23 (PNEUMOVAX) 2021-11-11 00:00:00 Completed [facility] Pneumococcal Polysaccharide, PPSV23 (PNEUMOVAX) 2021-11-11 00:00:00 Completed [facility] Pneumococcal Polysaccharide, PPSV23 (PNEUMOVAX) 2021-11-11 00:00:00 Completed [facility] Pneumococcal Polysaccharide, PPSV23 (PNEUMOVAX) 2021-11-11 00:00:00 Completed [facility] Pneumococcal Polysaccharide, PPSV23 (PNEUMOVAX) 2021-11-11 00:00:00 Completed [facility] Pneumococcal Polysaccharide, PPSV23 (PNEUMOVAX) 2021-11-11 00:00:00 Completed [facility] Pneumococcal Polysaccharide, PPSV23 (PNEUMOVAX) 2021-11-11 00:00:00 Completed [facility] Pneumococcal Polysaccharide, PPSV23 (PNEUMOVAX) 2021-11-11 00:00:00 Completed [facility] Pneumococcal Polysaccharide, PPSV23 (PNEUMOVAX) 2021-11-11 00:00:00 Completed [facility] Pneumococcal Polysaccharide, PPSV23 (PNEUMOVAX) 2021-11-11 00:00:00 Completed [facility] Pneumococcal Polysaccharide, PPSV23 (PNEUMOVAX) 2021-11-11 00:00:00 Completed [facility] Pneumococcal Polysaccharide, PPSV23 (PNEUMOVAX) 2021-11-11 00:00:00 Completed [facility] Pneumococcal Polysaccharide, PPSV23 (PNEUMOVAX) 2021-11-11 00:00:00 Completed [facility] Pneumococcal Polysaccharide, PPSV23 (PNEUMOVAX) 2021-11-11 00:00:00 Completed [facility] Pneumococcal Polysaccharide, PPSV23 (PNEUMOVAX) 2021-11-11 00:00:00 Completed [facility] Pneumococcal Polysaccharide, PPSV23 (PNEUMOVAX) 2021-11-11 00:00:00 Completed [facility] Pneumococcal Polysaccharide, PPSV23 (PNEUMOVAX) 2021-11-11 00:00:00 Completed [facility] Pneumococcal Polysaccharide, PPSV23 (PNEUMOVAX) 2021-11-11 00:00:00 Completed [facility] Pneumococcal Polysaccharide, PPSV23 (PNEUMOVAX) 2021-11-11 00:00:00 Completed [facility] Pneumococcal Polysaccharide, PPSV23 (PNEUMOVAX) 2021-11-11 00:00:00 Completed [facility] Pneumococcal Polysaccharide, PPSV23 (PNEUMOVAX) 2021-11-11 00:00:00 Completed [facility] Pneumococcal Polysaccharide, PPSV23 (PNEUMOVAX) 2021-11-11 00:00:00 Completed [facility] Pneumococcal Polysaccharide, PPSV23 (PNEUMOVAX) 2021-11-11 00:00:00 Completed [facility] Pneumococcal Polysaccharide, PPSV23 (PNEUMOVAX) 2021-11-11 00:00:00 Completed [facility] Pneumococcal Polysaccharide, PPSV23 (PNEUMOVAX) 2021-11-11 00:00:00 Completed [facility] Pneumococcal Polysaccharide, PPSV23 (PNEUMOVAX) 2021-11-11 00:00:00 Completed [facility] Pneumococcal Polysaccharide, PPSV23 (PNEUMOVAX) 2021-11-11 00:00:00 Completed [facility] Pneumococcal Polysaccharide, PPSV23 (PNEUMOVAX) 2021-11-11 00:00:00 Completed [facility] Pneumococcal Polysaccharide, PPSV23 (PNEUMOVAX) 2021-11-11 00:00:00 Completed [facility] Pneumococcal Polysaccharide, PPSV23 (PNEUMOVAX) 2021-11-11 00:00:00 Completed [facility] Pneumococcal Polysaccharide, PPSV23 (PNEUMOVAX) 2021-11-11 00:00:00 Completed [facility] Pneumococcal Polysaccharide, PPSV23 (PNEUMOVAX) 2021-11-11 00:00:00 Completed [facility] Pneumococcal Polysaccharide, PPSV23 (PNEUMOVAX) 2021-11-11 00:00:00 Completed [facility] TDAP 2021-04-07 00:00:00 Completed [facility] TDAP 2021-04-07 00:00:00 Completed [facility] TDAP 2021-04-07 00:00:00 Completed [facility] TDAP 2021-04-07 00:00:00 Completed [facility] TDAP 2021-04-07 00:00:00 Completed [facility] TDAP 2021-04-07 00:00:00 Completed [facility] TDAP 2021-04-07 00:00:00 Completed [facility] TDAP 2021-04-07 00:00:00 Completed [facility] TDAP 2021-04-07 00:00:00 Completed [facility] TDAP 2021-04-07 00:00:00 Completed [facility] TDAP 2021-04-07 00:00:00 Completed [facility] TDAP 2021-04-07 00:00:00 Completed [facility] TDAP 2021-04-07 00:00:00 Completed [facility] TDAP 2021-04-07 00:00:00 Completed [facility] TDAP 2021-04-07 00:00:00 Completed [facility] TDAP 2021-04-07 00:00:00 Completed [facility] TDAP 2021-04-07 00:00:00 Completed [facility] TDAP 2021-04-07 00:00:00 Completed [facility] TDAP 2021-04-07 00:00:00 Completed [facility] TDAP 2021-04-07 00:00:00 Completed [facility] TDAP 2021-04-07 00:00:00 Completed [facility] TDAP 2021-04-07 00:00:00 Completed [facility] TDAP 2021-04-07 00:00:00 Completed [facility] TDAP 2021-04-07 00:00:00 Completed [facility] TDAP 2021-04-07 00:00:00 Completed [facility] TDAP 2021-04-07 00:00:00 Completed [facility] TDAP 2021-04-07 00:00:00 Completed [facility] TDAP 2021-04-07 00:00:00 Completed [facility] TDAP 2021-04-07 00:00:00 Completed [facility] TDAP 2021-04-07 00:00:00 Completed [facility] TDAP 2021-04-07 00:00:00 Completed [facility] TDAP 2021-04-07 00:00:00 Completed [facility] TDAP 2021-04-07 00:00:00 Completed [facility] TDAP 2021-04-07 00:00:00 Completed [facility] TDAP 2021-04-07 00:00:00 Completed [facility] TDAP 2021-04-07 00:00:00 Completed [facility] Zoster Vaccine Recombinant 2018-05-03 00:00:00 Completed [facility] Zoster Vaccine Recombinant 2018-05-03 00:00:00 Completed [facility] Zoster Vaccine Recombinant 2018-05-03 00:00:00 Completed [facility] Zoster Vaccine Recombinant 2018-05-03 00:00:00 Completed [facility] Zoster Vaccine Recombinant 2018-05-03 00:00:00 Completed [facility] Zoster Vaccine Recombinant 2018-05-03 00:00:00 Completed [facility] Zoster Vaccine Recombinant 2018-05-03 00:00:00 Completed [facility] Zoster Vaccine Recombinant 2018-05-03 00:00:00 Completed [facility] Zoster Vaccine Recombinant 2018-05-03 00:00:00 Completed [facility] Zoster Vaccine Recombinant 2018-05-03 00:00:00 Completed [facility] Zoster Vaccine Recombinant 2018-05-03 00:00:00 Completed [facility] Zoster Vaccine Recombinant 2018-05-03 00:00:00 Completed [facility] Zoster Vaccine Recombinant 2018-05-03 00:00:00 Completed [facility] Zoster Vaccine Recombinant 2018-05-03 00:00:00 Completed [facility] Zoster Vaccine Recombinant 2018-05-03 00:00:00 Completed [facility] Zoster Vaccine Recombinant 2018-05-03 00:00:00 Completed [facility] Zoster Vaccine Recombinant 2018-05-03 00:00:00 Completed [facility] Zoster Vaccine Recombinant 2018-05-03 00:00:00 Completed [facility] Zoster Vaccine Recombinant 2018-05-03 00:00:00 Completed [facility] Zoster Vaccine Recombinant 2018-05-03 00:00:00 Completed [facility] Zoster Vaccine Recombinant 2018-05-03 00:00:00 Completed [facility] Zoster Vaccine Recombinant 2018-05-03 00:00:00 Completed [facility] Zoster Vaccine Recombinant 2018-05-03 00:00:00 Completed [facility] Zoster Vaccine Recombinant 2018-05-03 00:00:00 Completed [facility] Zoster Vaccine Recombinant 2018-05-03 00:00:00 Completed [facility] Zoster Vaccine Recombinant 2018-05-03 00:00:00 Completed [facility] Zoster Vaccine Recombinant 2018-05-03 00:00:00 Completed [facility] Zoster Vaccine Recombinant 2018-05-03 00:00:00 Completed [facility] Zoster Vaccine Recombinant 2018-05-03 00:00:00 Completed [facility] Zoster Vaccine Recombinant 2018-05-03 00:00:00 Completed [facility] Zoster Vaccine Recombinant 2018-05-03 00:00:00 Completed [facility] Zoster Vaccine Recombinant 2018-05-03 00:00:00 Completed [facility] Zoster Vaccine Recombinant 2018-05-03 00:00:00 Completed [facility] Zoster Vaccine Recombinant 2018-05-03 00:00:00 Completed [facility] Zoster Vaccine Recombinant 2018-05-03 00:00:00 Completed [facility] Zoster Vaccine Recombinant 2018-05-03 00:00:00 Completed [facility] Influenza Virus Vaccine Quad IM 3+ YRS 2018-02-27 00:00:00 Completed [facility] Zoster Vaccine Recombinant 2018-02-27 00:00:00 Completed [facility] Influenza Virus Vaccine Quad IM 3+ YRS 2018-02-27 00:00:00 Completed [facility] Zoster Vaccine Recombinant 2018-02-27 00:00:00 Completed [facility] Influenza Virus Vaccine Quad IM 3+ YRS 2018-02-27 00:00:00 Completed [facility] Zoster Vaccine Recombinant 2018-02-27 00:00:00 Completed [facility] Influenza Virus Vaccine Quad IM 3+ YRS 2018-02-27 00:00:00 Completed [facility] Zoster Vaccine Recombinant 2018-02-27 00:00:00 Completed [facility] Influenza Virus Vaccine Quad IM 3+ YRS 2018-02-27 00:00:00 Completed [facility] Zoster Vaccine Recombinant 2018-02-27 00:00:00 Completed [facility] Influenza Virus Vaccine Quad IM 3+ YRS 2018-02-27 00:00:00 Completed [facility] Zoster Vaccine Recombinant 2018-02-27 00:00:00 Completed [facility] Influenza Virus Vaccine Quad IM 3+ YRS 2018-02-27 00:00:00 Completed [facility] Zoster Vaccine Recombinant 2018-02-27 00:00:00 Completed [facility] Influenza Virus Vaccine Quad IM 3+ YRS 2018-02-27 00:00:00 Completed [facility] Zoster Vaccine Recombinant 2018-02-27 00:00:00 Completed [facility] Influenza Virus Vaccine Quad IM 3+ YRS 2018-02-27 00:00:00 Completed [facility] Zoster Vaccine Recombinant 2018-02-27 00:00:00 Completed [facility] Influenza Virus Vaccine Quad IM 3+ YRS 2018-02-27 00:00:00 Completed [facility] Zoster Vaccine Recombinant 2018-02-27 00:00:00 Completed [facility] Influenza Virus Vaccine Quad IM 3+ YRS 2018-02-27 00:00:00 Completed [facility] Zoster Vaccine Recombinant 2018-02-27 00:00:00 Completed [facility] Influenza Virus Vaccine Quad IM 3+ YRS 2018-02-27 00:00:00 Completed [facility] Zoster Vaccine Recombinant 2018-02-27 00:00:00 Completed [facility] Influenza Virus Vaccine Quad IM 3+ YRS 2018-02-27 00:00:00 Completed [facility] Zoster Vaccine Recombinant 2018-02-27 00:00:00 Completed [facility] Influenza Virus Vaccine Quad IM 3+ YRS 2018-02-27 00:00:00 Completed [facility] Zoster Vaccine Recombinant 2018-02-27 00:00:00 Completed [facility] Influenza Virus Vaccine Quad IM 3+ YRS 2018-02-27 00:00:00 Completed [facility] Zoster Vaccine Recombinant 2018-02-27 00:00:00 Completed [facility] Influenza Virus Vaccine Quad IM 3+ YRS 2018-02-27 00:00:00 Completed [facility] Zoster Vaccine Recombinant 2018-02-27 00:00:00 Completed [facility] Influenza Virus Vaccine Quad IM 3+ YRS 2018-02-27 00:00:00 Completed [facility] Zoster Vaccine Recombinant 2018-02-27 00:00:00 Completed [facility] Influenza Virus Vaccine Quad IM 3+ YRS 2018-02-27 00:00:00 Completed [facility] Zoster Vaccine Recombinant 2018-02-27 00:00:00 Completed [facility] Influenza Virus Vaccine Quad IM 3+ YRS 2018-02-27 00:00:00 Completed [facility] Zoster Vaccine Recombinant 2018-02-27 00:00:00 Completed [facility] Influenza Virus Vaccine Quad IM 3+ YRS 2018-02-27 00:00:00 Completed [facility] Zoster Vaccine Recombinant 2018-02-27 00:00:00 Completed [facility] Influenza Virus Vaccine Quad IM 3+ YRS 2018-02-27 00:00:00 Completed [facility] Zoster Vaccine Recombinant 2018-02-27 00:00:00 Completed [facility] Influenza Virus Vaccine Quad IM 3+ YRS 2018-02-27 00:00:00 Completed [facility] Zoster Vaccine Recombinant 2018-02-27 00:00:00 Completed [facility] Influenza Virus Vaccine Quad IM 3+ YRS 2018-02-27 00:00:00 Completed [facility] Zoster Vaccine Recombinant 2018-02-27 00:00:00 Completed [facility] Influenza Virus Vaccine Quad IM 3+ YRS 2018-02-27 00:00:00 Completed [facility] Zoster Vaccine Recombinant 2018-02-27 00:00:00 Completed [facility] Influenza Virus Vaccine Quad IM 3+ YRS 2018-02-27 00:00:00 Completed [facility] Zoster Vaccine Recombinant 2018-02-27 00:00:00 Completed [facility] Influenza Virus Vaccine Quad IM 3+ YRS 2018-02-27 00:00:00 Completed [facility] Zoster Vaccine Recombinant 2018-02-27 00:00:00 Completed [facility] Influenza Virus Vaccine Quad IM 3+ YRS 2018-02-27 00:00:00 Completed [facility] Zoster Vaccine Recombinant 2018-02-27 00:00:00 Completed [facility] Influenza Virus Vaccine Quad IM 3+ YRS 2018-02-27 00:00:00 Completed [facility] Zoster Vaccine Recombinant 2018-02-27 00:00:00 Completed [facility] Influenza Virus Vaccine Quad IM 3+ YRS 2018-02-27 00:00:00 Completed [facility] Zoster Vaccine Recombinant 2018-02-27 00:00:00 Completed [facility] Influenza Virus Vaccine Quad IM 3+ YRS 2018-02-27 00:00:00 Completed [facility] Zoster Vaccine Recombinant 2018-02-27 00:00:00 Completed [facility] Influenza Virus Vaccine Quad IM 3+ YRS 2018-02-27 00:00:00 Completed [facility] Zoster Vaccine Recombinant 2018-02-27 00:00:00 Completed [facility] Influenza Virus Vaccine Quad IM 3+ YRS 2018-02-27 00:00:00 Completed [facility] Zoster Vaccine Recombinant 2018-02-27 00:00:00 Completed [facility] Influenza Virus Vaccine Quad IM 3+ YRS 2018-02-27 00:00:00 Completed [facility] Zoster Vaccine Recombinant 2018-02-27 00:00:00 Completed [facility] Influenza Virus Vaccine Quad IM 3+ YRS 2018-02-27 00:00:00 Completed [facility] Zoster Vaccine Recombinant 2018-02-27 00:00:00 Completed [facility] Influenza Virus Vaccine Quad IM 3+ YRS 2018-02-27 00:00:00 Completed [facility] Zoster Vaccine Recombinant 2018-02-27 00:00:00 Completed [facility] Influenza Virus Vaccine Quad IM 3+ YRS 2018-02-27 00:00:00 Completed [facility] Zoster Vaccine Recombinant 2018-02-27 00:00:00 Completed [facility] Vital Signs Vital Name Observation Time Observation Value Comments Dulce shen Systolic blood pressure 2024-07-03 20:31:00 123 mm[Hg] [facility] Diastolic blood pressure 2024-07-03 20:31:00 80 mm[Hg] [facility] Heart rate 2024-07-03 20:31:00 84 /min [facility] Respiratory rate 2024-07-03 20:31:00 16 /min [facility] Body height 2024-07-03 20:31:00 170.2 cm [facility] Body weight 2024-07-03 20:31:00 68.493 kg [facility] BMI 2024-07-03 20:31:00 23.65 kg/m2 [facility] Oxygen saturation in Arterial blood by Pulse oximetry 2024-07-03 20:31:00 96 /min [facility] Body weight 2024-07-03 08:43:00 68.221 kg Vinnie rial [facility] BMI 2024-07-03 08:43:00 23.56 kg/m2 Vinnie rial [place] [facility] Systolic blood pressure 2024-07-03 08:43:00 104 mm[Hg] [facility] Diastolic blood pressure 2024-07-03 08:43:00 84 mm[Hg] [facility] Heart rate 2024-07-03 08:43:00 [facility] Body temperature 2024-07-03 08:43:00 36.11 Maria Esther [facility] Respiratory rate 2024-07-03 08:43:00 16 /min [facility] Body height 2024-07-03 08:43:00 170.2 cm Vinnie rial [place] [facility] Body weight 2024-07-03 08:43:00 68.221 kg Vinnie rial Se [facility] BMI 2024-07-03 08:43:00 23.56 kg/m2 [facility]innie rial [facility] Systolic blood pressure 2024-07-03 08:43:00 104 mm[Hg] [facility] Diastolic blood pressure 2024-07-03 08:43:00 84 mm[Hg] [facility] Epic Heart rate 2024-07-03 08:43:00 75 /min [facility] Body temperature 2024-07-03 08:43:[facility] 2024-07-03 08:43:00 16 /[facility] Body height 2024-07-03 08:43:00 170.2 cm Vinnie rial [place] [facility] Systolic blood pressure 2024-05-31 13:14:00 123 mm[Hg] [facility] Diastolic blood pressure 2024-05-31 13:14:00 82 mm[Hg] [facility] Epic Heart rate 2024-05-31 13:14:00 94 /min [facility] Body temperature 2024-05-31 13:14:00 [facility] Res[facility] 2024-05-31 13:14:00 16 /min [facility] Body height 2024-05-31 13:14:00 171.5 cm Vinnie rial Se [facility] Body weight 2024-05-31 13:14:00 68.765 kg Vinnie rial [place] [facility] BMI 2024-05-31 13:14:00 23.39 kg/m2 Vinnie rial [place] [facility] Oxygen saturation in Arterial blood by Pulse oximetry 2024-05-31 13:14:00 96 /min [facility] Systolic blood pressure 2024-05-31 13:14:00 123 mm[Hg] [facility] Diastolic blood pressure 2024-05-31 13:14:00 82 mm[Hg] [facility] Epic Heart rate 2024-05-31 13:14:00 94 /min [facility] Body temperature 2024-05-31 13:14:00 36 [facility] [place] [facility] Respiratory rate 2024-05-31 13:14:00 16 /min [facility] [place] [facility] Body height 2024-05-31 13:14:00 171.5 cm Vinnie rial Se [facility] Body weight 2024-05-31 13:14:00 68.765 kg Vinnie rial Se [facility] BMI 2024-05-31 13:14:00 23.39 kg/m2 Vinnie carly [facility] Oxygen saturation in Arterial blood by Pulse oximetry 2024-05-31 13:14:00 96 /min [facility] Systolic blood pressure 2024-04-17 15:38:00 112 mm[Hg] [facility] Diastolic blood pressure 2024-04-17 15:38:00 68 mm[Hg] [facility] Heart rate 2024-04-17 15:38:00 82 /min [facility] Body height 2024-04-17 15:38:00 172.7 cm [facility] Body weight 2024-04-17 15:38:00 70.308 kg [facility] BMI 2024-04-17 15:38:00 23.57 kg/m2 [facility] Oxygen saturation in Arterial blood by Pulse oximetry 2024-04-17 15:38:00 96 /min [facility] Systolic blood pressure 2024-03-01 09:27:00 98 mm[Hg] [facility] Diastolic blood pressure 2024-03-01 09:27:00 61 mm[Hg] [facility] Heart rate 2024-03-01 09:27:00 95 /min [facility] Body temperature 2024-03-01 09:27:00 36 Maria Esther [facility] Respiratory rate 2024-03-01 09:27:00 16 /min [facility] Body height 2024-03-01 09:27:00 170.2 cm Vinniejose maria [facility] Body weight 2024-03-01 09:27:00 71.668 kg Vinnie carly [facility] BMI 2024-03-01 09:27:00 24.75 kg/m2 Vinnie carly [facility] Oxygen saturation in Arterial blood by Pulse oximetry 2024-03-01 09:27:00 98 /min [facility] Systolic blood pressure 2024-03-01 09:27:00 98 mm[Hg] [facility] Diastolic blood pressure 2024-03-01 09:27:00 61 mm[Hg] [facility] Epic Heart rate 2024-03-01 09:27:00 95 /min [facility] [place] [facility] Body temperature 2024-03-01 09:27:00 36 Maria Esther [facility] Respiratory rate 2024-03-01 09:27:00 16 /min [facility] Body height 2024-03-01 09:27:00 170.2 cm Vinnie Douglas Body weight 2024-03-01 09:27:00 71.668 kg Vinnie Saez [facility] BMI 2024-03-01 09:27:00 24.75 kg/m2 Vinnie Saez [facility] Oxygen saturation in Arterial blood by Pulse oximetry 2024-03-01 09:27:00 98 /min [facility] Her deshpande [facility] Systolic blood pressure 2024-02-26 18:06:00 106 mm[Hg] [facility] Diastolic blood pressure 2024-02-26 18:06:00 68 mm[Hg] [facility] Heart rate 2024-02-26 18:06:00 89 /min Unive [facility] Body height 2024-02-26 18:06:00 165.1 cm [facility] weight 2024-02-26 18:06:00 73.029 kg Univ [facility] BMI 2024-02-26 18:06:00 26.79 kg/m2 [facility] Oxygen saturation in Arterial blood by Pulse oximetry 2024-02-26 18:06:00 99 /min [facility] Systolic blood pressure 2023-10-10 15:04:00 119 mm[Hg] [facility] Diastolic blood pressure 2023-10-10 15:04:00 64 mm[Hg] [facility] Heart rate 2023-10-10 15:04:00 75 /min Unive [facility] Body height 2023-10-10 15:04:00 172.7 cm [facility] Body weight 2023-10-10 15:04:00 77.792 kg Univ [facility] BMI 2023-10-10 15:04:00 26.08 kg/m2 [facility] Oxygen saturation in Arterial blood by Pulse oximetry 2023-10-10 15:04:00 99 /min [facility] Systolic blood pressure 2023-10-02 20:38:00 124 mm[Hg] [facility] Diastolic blood pressure 2023-10-02 20:38:00 76 mm[Hg] [facility] Heart rate 2023-10-02 20:38:00 92 /min Unive [facility] Body temperature 2023-10-02 20:37:00 36.39 Maria Esther [facility] Respiratory rate 2023-10-02 20:37:00 16 /min [facility] Body height 2023-10-02 20:37:00 172.7 cm Univ [facility] Body weight 2023-10-02 20:37:00 77.111 kg [facility] BMI 2023-10-02 20:37:00 25.85 kg/m2 [facility] Oxygen saturation in Arterial blood by Pulse oximetry 2023-10-02 20:37:00 93 /min [facility] Systolic blood pressure 2022-11-28 14:45:00 163 mm[Hg] [facility] Diastolic blood pressure 2022-11-28 14:45:00 93 mm[Hg] [facility] Heart rate 2022-11-28 14:34:00 111 /min Unive [facility] Body temperature 2022-11-28 14:34:00 36.83 Maria Esther [facility] Body height 2022-11-28 14:34:00 167.6 cm Univ [facility] Body weight 2022-11-28 14:34:00 75.297 kg [facility] BMI 2022-11-28 14:34:00 26.79 kg/m2 [facility] Systolic blood pressure 2022-10-13 17:50:00 113 mm[Hg] [facility] Diastolic blood pressure 2022-10-13 17:50:00 74 mm[Hg] [facility] Heart rate 2022-10-13 17:50:00 106 /min Unive [facility] Body temperature 2022-10-13 17:50:00 34.44 Maria Esther [facility] Respiratory rate 2022-10-13 17:50:00 18 /min [facility] Body height 2022-10-13 17:50:00 167.6 cm Univ [facility] Body weight 2022-10-13 17:50:00 76.567 kg Univ [facility] BMI 2022-10-13 17:50:00 27.25 kg/m2 [facility] Oxygen saturation in Arterial blood by Pulse oximetry 2022-10-13 17:50:00 94 /min [facility] Systolic blood pressure 2022-05-25 20:51:00 125 mm[Hg] [facility] Diastolic blood pressure 2022-05-25 20:51:00 77 mm[Hg] [facility] Heart rate 2022-05-25 20:51:00 61 /min Unive [facility] Body height 2022-05-25 20:51:00 172.7 cm Univ [facility] Body weight 2022-05-25 20:51:00 75.66 kg [facility] BMI 2022-05-25 20:51:00 25.36 kg/m2 [facility] Oxygen saturation in Arterial blood by Pulse oximetry 2022-05-25 20:51:00 98 /min [facility] Systolic blood pressure 2022-03-30 18:54:00 130 mm[Hg] [facility] Diastolic blood pressure 2022-03-30 18:54:00 73 mm[Hg] [facility] Heart rate 2022-03-30 18:54:00 105 /min Un[facility] Body height 2022-03-30 18:54:00 172.7 cm Univ [facility] Body weight 2022-03-30 18:54:00 77.837 kg [facility] BMI 2022-03-30 18:54:00 26.09 kg/m2 [facility] Oxygen saturation in Arterial blood by Pulse oximetry 2022-03-30 18:54:00 94 /min [facility] Systolic blood pressure 2021-12-24 21:45:00 131 mm[Hg] [facility] Diastolic blood pressure 2021-12-24 21:45:00 75 mm[Hg] [facility] Heart rate 2021-12-24 21:45:00 76 /min [facility] Body temperature 2021-12-24 21:45:00 36.39 Maria Esther [facility] Respiratory rate 2021-12-24 21:45:00 18 /min [facility] Body height 2021-12-24 21:45:00 172.7 cm [facility] Body weight 2021-12-24 21:45:00 77.747 kg [facility] BMI 2021-12-24 21:45:00 26.06 kg/m2 [facility] Oxygen saturation in Arterial blood by Pulse oximetry 2021-12-24 21:45:00 95 /min [facility] Procedures Procedure Date / Time Performed Performing Clinician Source EMG 2024-07-03 18:30:10 Razia Ballesteros [facility] MRI cervical spine wo IV contrast 2024-07-03 00:00:00 [facility] NM brain SPECT 2024-07-03 00:00:00 Nona Yun [facility] MR BRAIN WO CONTRAST 2024-06-12 19:40:11 Requisition, Paper [facility] XR CERVICAL SPINE 3 VW 2024-06-12 18:49:12 Requisition , Paper [facility] Ceruloplasmin 2024-05-31 00:00:00 Layne Saez [facility] Copper Level 2024-05-31 00:00:00 [facility] C-Reactive Protein 2024-05-31 [facility] Immunofixation (BARTOLO) 2024-05-31 00:00:00 [facility] Sedimentation Rate 2024-05-31 00:00:00 [facility] [place] [facility] Zinc Level 2024-05-31 00:00:00 [facility] Vitamin B6 Level 2024-05-31 00:00:00 Vinnie carroll [place] [facility] Vitamin B12 Level 2024-05-31 00:00:00 [facility] iqra Saez [facility] Vitamin B1 Level 2024-05-31 00:00:00 Vinnie carroll Se [facility] West Nile Virus Antibodies 2024-05-31 00:00:00 [facility] RPR with Reflexes 2024-05-31 00:00:00 Mem orial [facility] XR cervical spine 2-3 views 2024-05-31 00:00:00 [facility] MRI brain wo IV contrast 2024-05-31 00:00:00 [facility] EMG 2024-05-31 00:00:00 [facility] XR CHEST 2 VW 2024-05-22 15:00:36 Julio Cesar Quintero [facility] US ABDOMEN LIMITED 2024-05-22 14:54:04 Julio Cesar Quintero [facility] EXTERNAL PROVIDER RECORDS 2023-01-31 05:01:00 Do ctor Unassigned, [place] [facility] AUTHORIZATION FOR RELEASE OF PHI 2023-01-19 05:01:00 Doctor Unassigned, [place] [facility] EXTERNAL PROVIDER RECORDS 2023-01-03 05:01:00 Do ctor Unassigned, [place] [facility] AUTHORIZATION FOR RELEASE OF PHI 2022-11-14 05:01:00 Doctor Unassigned, [place] [facility] EXTERNAL PROVIDER RECORDS 2022-04-19 06:01:00 Do ctor Unassigned, [place] [facility] EXTERNAL PROVIDER RECORDS 2022-04-04 06:01:00 Do ctor Unassigned, [place] [facility] Encounters Start Date/Time End Date/Time Encounter Type Admission Type Attending [facility] Care Department Encounter ID Source 2022-02-18 18:21:07 Outpatient R KLARISSA MENARD [facility] DONATO [id number] [facility] 2024-07-31 13:00:00 2024-07-31 13:00:00 Outpatient R CESAR BONILLA CRAIG [facility] [id number] [facility] 2024-07-23 00:00:00 2024-07-23 00:00:00 Outpatient R RADIOLOGY [facility] [id number] [facility] 2024-07-10 13:00:00 2024-07-10 13:52:14 Ancillary Visit Bessy Candelaria Craig L Johanson, Dara [facility] 1.2.840.114 350.1.13.10 4.2.7.2.686 [id number] [facility] 2024-07-05 00:00:00 2024-07-05 13:18:52 Telephone Emilia Clemens Arianna [place] 1.2.840.114 350.1.13.70 8.2.7.2.686 [id number] Ariadnekeith main Se [facility] 2024-07-04 00:00:00 2024-07-04 08:46:41 Results Follow-Up Razia Ballesteros 1.2.840.114 350.1.13.70 8.2.7.2.686 [id number] Ariadnekeith main Se [facility] 2024-07-03 14:30:00 2024-07-03 14:45:00 Office Visit Julio Cesar Quintero [facility] 1.2.840.114 350.1.13.10 4.2.7.2.686 [id number] [facility] 2024-07-03 08:29:18 2024-07-03 09:42:25 Outpatient RAZIA BALLESTEROS EOUT EOUT [id number] [facility] 2024-07-03 08:15:00 2024-07-03 09:42:25 Procedure Visit Razia Ballesteros 1.2.840.114 350.1.13.70 8.2.7.2.686 [id number] [facility]24-[facility]-03 00:00:00 2024-07-03 00:00:00 Outpatient JULIO CESAR ISSA [facility] [id number] [facility] 2024-06-19 11:00:00 2024-06-19 11:00:00 Outpatient CESAR GIBBONS CRAIG [facility] [id number] [facility] 2024-06-19 00:00:00 2024-06-19 08:52:18 Telephone Julio Cesar Quintero [facility] 1.2.840.114 350.1.13.10 4.2.7.2.686 [id number] [facility] 2024-06-14 00:00:00 2024-06-18 09:48:29 [facility] 1.2840.114 350.1.13.10 4.2.7.2.686 [id number] [facility] 2024-06-14 11:00:00 2024-06-14 11:30:00 Chief Scientist Visit Therapist, [facility] Respiratory Julio Cesar Quintero [facility] 1.2840.114 350.1.13.10 4.2.7.2.686 [id number] [facility] 2024-06-14 11:00:00 2024-06-14 11:00:00 Outpatient R JULIO CESAR QUINTERO [facility] [id number] [facility] 2024-06-12 12:28:19 2024-06-12 23:59:00 Hospital Encounter Radiology Radiology [facility] 1.2840.114 350.1.13.10 4.2.7.2.686 [id number] [facility] 2024-06-12 12:27:49 2024-06-12 12:27:49 Outpatient R RADIOLOGY [facility] [id number] [facility] 2024-06-12 12:27:49 2024-06-12 12:27:49 Hospital Encounter Radiology Radiology [facility] 1.2.840.114 350.1.13.10 4.2.7.2.686 [id number] [facility] 2024-06-10 13:15:00 2024-06-10 13:15:00 Outpatient R GILLSHIV Brady [facility] [id number] [facility] 2024-06-04 11:00:00 2024-06-04 12:01:34 Outpatient R CESAR BONILLA CRAIG [facility] [id number] [facility] 2024-06-04 11:00:00 2024-06-04 12:01:34 Ancillary Visit Bessy Candelaria Craig L Johanson, Dara [facility] PROFESSIO NAL BUILDING 1.2.840.114 350.1.13.10 4.2.7.2.686 [id number] [facility] 2024-06-03 00:00:00 2024-06-03 06:26:20 Telephone Julio Cesar Quintero [facility] 1.2.840.114 350.1.13.10 4.2.7.2.686 [id number] [facility] 2024-05-31 13:15:00 2024-05-31 14:03:59 Office Visit Razia Ballesteros 1.2.840.114 350.1.13.70 8.2.7.2.686 [id number] Layne quach [facility] 2024-05-31 13:00:47 2024-05-31 14:03:59 Outpatient RAZIA BALLESTEROS EOUT EOUT [id number] [facility] 2024-05-24 13:48:32 2024-05-24 23:59:00 Outpatient R JULIO CESAR QUINTERO [facility] [id number] [facility] 2024-05-24 13:40:00 2024-05-24 23:59:00 Hospital Encounter Julio Cesar Quintero [facility] 1.2.840.114 350.1.13.10 4.2.7.2.686 [id number] [facility] 2024-05-22 08:13:35 2024-05-22 23:59:00 Outpatient R JULIO CESAR QUINTERO [facility] [id number] [facility] 2024-05-22 08:13:35 2024-05-22 23:59:00 Hospital Encounter Leon Julio Cesar [facility] 1.2.840.114 350.1.13.10 4.2.7.2.686 [id number] [facility] 2024-05-22 09:30:00 2024-05-22 11:13:13 Ancillary Visit Bessy Candelaria, Cesar Candelaria Bessy [facility] PROFESSIO NAL BUILDING 1.2.840.114 350.1.13.10 4.2.7.2.686 [id number] [facility] 2024-05-22 08:00:00 2024-05-22 08:12:00 Hospital Encounter Julio Cesar Quintero [facility] 1.2840.114 350.1.13.10 4.2.7.2.686 [id number] [facility] 2024-05-03 11:00:00 2024-05-03 11:00:00 Outpatient R [facility] [id number] [facility] 2024-04-17 10:00:00 2024-04-17 10:15:00 Chief Scientist Visit Lab, Julio Cesar Escamilla Lab, Bro Neves [facility] 1.2.840.114 350.1.13.10 4.2.7.2.686 [id number] [facility] 2024-04-17 09:30:00 2024-04-17 09:58:06 Outpatient R JULIO CESAR QUINTERO [facility] [id number] [facility] 2024-04-17 09:30:00 2024-04-17 09:58:06 Office Visit [facility] 1..114 350.1.13.10 4.2.7.2.686 [id number] [facility] 2024-04-05 00:00:00 2024-04-05 10:15:03 [facility] 1..114 350.1.13.10 4.2.7.2.686 [id number] [facility] 2024-03-07 00:00:00 2024-03-11 09:33:56 Telephone Leon [facility] 1.114 350.1.13.10 4.2.7.2.686 [id number] [facility] 2024-03-11 00:00:00 2024-03-11 00:00:00 Outpatient JULIO CESAR ISSA [facility] [id number] [facility] 2024-03-01 09:12:15 2024-03-01 09:59:46 Outpatient RAZIA BALLESTEROS [facility] [id number] [facility] 2024-03-01 09:00:00 2024-03-01 09:15:00 Office Visit Razia Ballesteros [facility] 1..114 350.1.13.70 8.2.7.2.686 [id number] Layne Saez [facility] 2024-02-26 13:00:00 2024-02-26 13:30:41 Outpatient JULIO CESAR ISSA [facility] [id number] [facility] 2024-02-26 13:00:00 2024-02-26 13:15:00 Office Visit Julio Cesar Quintero [facility] SHANTEL?[facility] 1.114 350.1.13.10 4.2.7.2.686 [id number] [facility] 2024-02-03 00:00:00 2024-02-05 11:54:45 Refill [facility] 1.2.840.114 350.1.13.10 4.2.7.2.686 [id number] [facility] 2024-01-26 00:00:00 2024-01-26 11:47:55 [facility] 1..840.114 350.1.13.10 4.2.7.2.686 [id number] [facility] 2023-12-10 00:00:00 2023-12-11 07:49:36 Refill Leon [facility] SHANTEL?[facility] OFF[facility] BUILD[facility] 1..840.114 350.1.13.10 4.2.7.2.686 [id number] [facility] 2023-10-10 10:00:00 2023-10-10 10:28:37 Outpatient R JULIO CESAR QUINTERO [facility] [id number] [facility] 2023-10-10 10:00:00 2023-10-10 10:15:00 Office Visit Karin QuinteroCount includes the [facility] SHANTEL?[facility] 1..840.114 350.1.13.10 4.2.7.2.686 [id number] [facility] 2023-10-09 00:00:00 2023-10-10 07:31:16 Refill Leon [facility] SHANTEL?[facility] 1.2.840.114 350.1.13.10 4.2.7.2.686 [id number] [facility] 2023-10-02 15:00:00 2023-10-02 15:20:00 Urgent Care Natalie Talley Unknown, Attending [facility] 1.2.840.114 350.1.13.10 4.2.7.2.686 [id number] [facility] 2023-10-02 15:00:00 2023-10-02 15:00:00 Outpatient R ROSELINE TALLEYGATO [facility] [id number] [facility] 2023-09-23 00:00:00 2023-09-25 09:02:42 Refill Julio Cesar Quintero [facility] SHANTEL?[facility] 1.2.840.114 350.1.13.10 4.2.7.2.686 [id number] [facility] 2023-07-25 13:00:00 2023-07-25 13:00:00 Outpatient ANGEL BURCH [id number] [facility] 2023-07-07 00:00:00 2023-07-07 00:00:00 Refill Julio Cesar Quintero [facility] SHANTEL?[facility] 1.2.840.114 350.1.13.10 4.2.7.2.686 [id number] [facility] 2023-05-15 08:15:00 2023-05-15 08:15:00 Outpatient MADDIE GOLD [id number] [facility] 2023-05-02 00:00:00 2023-05-02 00:00:00 RefJulio Cesar Toro [facility] SHANETL?OANHBlane [facility] 1.2.840.114 350.1.13.10 4.2.7.2.686 [id number] [facility] 2023-03-31 00:00:00 2023-03-31 00:00:00 Refill Leon Julio Cesar [facility] 1.2840.114 350.1.13.10 4.2.7.2.686 [id number] [facility] 2023-03-17 00:00:00 2023-03-17 00:00:00 Refeduin Quintero [facility] 1.2840.114 350.1.13.10 4.2.7.2.686 [id number] [facility] 2023-03-06 00:00:00 2023-03-06 00:00:00 Refeduin Quintero [facility] 1.2840.114 350.1.13.10 4.2.7.2.686 [id number] [facility] 2023-01-31 00:00:00 2023-01-31 00:00:00 Orders Only Doctor Unassigned, [place] [facility] 1.840.114 350.1.13.10 4.2.7.2.686 [id number] [facility] 2023-01-20 00:00:00 2023-01-20 00:00:00 [facility] 1.2840.114 350.1.13.10 4.2.7.2.686 [id number] [facility] 2023-01-19 00:00:00 2023-01-19 00:00:00 Orders Only Doctor Unassigned, [place] [facility] 1.2840.114 350.1.13.10 4.2.7.2.686 [id number] [facility] 2023-01-03 00:00:00 2023-01-03 00:00:00 Orders Only Doctor Unassigned, [place] [facility] 1.2840.114 350.1.13.10 4.2.7.2.686 [id number] [facility] 2022-12-27 00:00:00 2022-12-27 00:00:00 Telephone Julio Cesar Quintero [facility] 1.2840.114 350.1.13.10 4.2.7.2.686 [id number] [facility] 2022-12-26 00:00:00 2022-12-26 00:00:00 Refill Julio Cesar Quintero [facility] 1.2840.114 350.1.13.10 4.2.7.2.686 [id number] [facility] 2022-12-25 00:00:00 2022-12-25 00:00:00 Telephone Julio Cesar Quintero [facility] 1.2840.114 350.1.13.10 4.2.7.2.686 [id number] [facility] 2022-12-21 00:00:00 2022-12-21 00:00:00 Telephone Karin [facility] Center[facility] 1.2840.114 350.1.13.10 4.2.7.2.686 [id number] [facility] 2022-12-19 00:00:00 2022-12-19 00:00:00 [facility] 1.2840.114 350.1.13.10 4.2.7.2.686 [id number] [facility] 2022-11-28 09:45:00 2022-11-28 10:00:00 Office Visit Julio Cesar Quintero [facility] 1.2840.114 350.1.13.10 4.2.7.2.686 [id number] [facility] 2022-11-28 09:45:00 2022-11-28 09:45:00 Outpatient R QUINTERO JULIO CESAR [facility] [id number] [facility] 2022-11-27 00:00:00 2022-11-27 00:00:00 Refill Quintero [facility]ly [facility] 1.840.114 350.1.13.10 4.2.7.2.686 [id number] [facility] 2022-11-14 00:00:00 2022-11-14 00:00:00 Orders Only Doctor Unassigned, [place] [facility] 1.840.114 350.1.13.10 4.2.7.2.686 [id number] [facility] 2022-11-10 00:00:00 2022-11-10 00:00:00 Case Management Maya Ferrera 1.840.114 350.1.13.10 4.2.7.2.686 [id number] [facility] 2022-10-31 00:00:00 2022-10-31 00:00:00 Telephone Leon Julio [facility] 1.2.114 350.1.13.10 4.2.7.2.686 [id number] [facility] 2022-10-28 00:00:00 2022-10-28 00:00:00 Case Management Maya Ferrera [facility] 1.2840.114 350.1.13.10 4.2.7.2.686 [id number] [facility] 2022-10-27 00:00:00 2022-10-27 00:00:00 Refill Leon [facility] SH[facility] 1.2840.114 350.1.13.10 4.2.7.2.686 [id number] [id number] [facility] 2022-10-27 00:00:00 2022-10-27 00:00:00 Telephone Julio Cesar Quintero [facility] SHANTEL?[facility] 1.2840.114 350.1.13.10 4.2.7.2.686 [id number] [id number] [facility] 2022-10-21 08:15:00 2022-10-21 08:30:00 Chief Scientist Visit Lab, Bro Neves Leon [facility] SHANTEL?[facility] 1.0.114 350.1.13.10 4.2.7.2.686 [id number] [facility] 2022-10-21 08:15:00 2022-10-21 08:15:00 Outpatient R JULIO CESAR QUINTERO [facility] [id number] [facility] 2022-10-19 00:00:00 2022-10-19 00:00:00 Case Management Maya Ferrera [place] 1.0.114 350.1.13.10 4.2.7.2.686 [id number] [facility] 2022-10-13 12:45:00 2022-10-13 13:07:11 [facility] [id number] [facility] 2022-10-13 12:45:00 2022-10-13 13:07:11 Office Visit Leon [facility] SHANTEL?[facility] 1.2.114 350.1.13.10 4.2.7.2.686 [id number] [id number] [facility] 2022-08-17 00:00:00 2022-08-17 00:00:00 Refill Julio Cesar Quintero [facility] FUNES?MAGALY [facility] 1.2.840.114 350.1.13.10 4.2.7.2.686 [id number] [facility] 2022-07-13 00:00:00 2022-07-13 00:00:00 Refill Julio Cesar Quintero [facility]?MAGALY [facility] 1.2840.114 350.1.13.10 4.2.7.2.686 [id number] [facility] 2022-06-17 00:00:00 2022-06-17 00:00:00 Refill Julio Cesar Quintero [facility] 1.2840.114 350.1.13.10 4.2.7.2.686 [id number] [id number] [facility] 2022-06-02 00:00:00 2022-06-02 00:00:00 Telephone Julio Cesar Quintero [facility]?MAGALY [facility] 1.2.840.114 350.1.13.10 4.2.7.2.686 [id number] [facility] 2022-05-27 00:00:00 2022-05-27 00:00:00 Refill Julio Cesar Quintero [facility]?MAGALY [facility] 1.2.840.114 350.1.13.10 4.2.7.2.686 [id number] [id number] [facility] 2022-05-25 14:45:00 2022-05-25 15:00:00 Office Visit Julio Cesar Quintero [facility] 1.2840.114 350.1.13.10 4.2.7.2.686 [id number] 044 [id number] [facility] 2022-05-25 14:45:00 2022-05-25 14:45:00 Outpatient R JULIO CESAR QUINTERO [facility] [id number] [facility] 2022-05-25 00:00:00 2022-05-25 00:00:00 Letter (Out) Leon [facility] SHANTEL?[facility] MEDICAL OFFICE BUILDING 1.2840.114 350.1.13.10 4.2.7.2.686 [id number] [facility] 2022-05-25 00:00:00 2022-05-25 00:00:00 Letter (Out) Julio Cesar Quintero [facility] SHANTEL?[facility] MED[facility] OFFICE BUILD[facility] 1.2840.114 350.1.13.10 4.2.7.2.686 [id number] 044 [id number] [facility] 2022-05-13 00:00:00 2022-05-13 00:00:00 Refill Leon [facility] SHANTEL?[facility] MED[facility] OFFICE BUILDING 1.2840.114 350.1.13.10 4.2.7.2.686 [id number] [id number] [facility] 2022-04-19 00:00:00 2022-04-19 00:00:00 Orders Only Doctor Unassigned, [place] [facility] 1.2.114 350.1.13.10 4.2.7.2.686 [id number] [facility] 2022-04-11 00:00:00 2022-04-11 00:00:00 [facility] 1.2.114 350.1.13.10 4.2.7.2.686 [id number] [id number] [facility] 2022-04-04 00:00:00 2022-04-04 00:00:00 Orders Only Doctor Unassigned, [place] [facility] 1.114 350.1.13.10 4.2.7.2.686 [id number] [facility] 2022-03-30 13:00:00 2022-03-30 13:28:54 Outpatient R JULIO CESAR QUINTERO [facility] [id number] [facility] 2022-03-30 13:00:00 2022-03-30 13:28:54 Office Visit Julio Cesar Quinetro [facility] SHANTEL?[facility] 1.0.114 350.1.13.10 4.2.7.2.686 [id number] 044 [id number] [facility] 2022-03-28 00:00:00 2022-03-28 00:00:00 Telephone Leon Julio Cesar [facility] SHANTEL?[facility] MED[facility] OFFICE BUILDING 1..114 350.1.13.10 4.2.7.2.686 [id number] [id number] [facility] 2022-03-11 00:00:00 2022-03-11 00:00:00 Refill Loen Julio Cesar [facility] SHANTEL?[facility] MED[facility] OFFICE BUILDING 1..114 350.1.13.10 4.2.7.2.686 [id number] [id number] [facility] 2022-02-21 00:00:00 2022-02-21 00:00:00 Telephone Klarissa [facility]ard [facility] 1.840.114 350.1.13.10 4.2.7.2.686 [id number] [facility] 2022-01-09 00:00:00 2022-01-09 00:00:00 Telephone [facility]oxi Ramirez [facility] OFF[facility] BU[facility] 1..114 350.1.13.10 4.2.7.2.686 [id number] [id number] [facility] 2022-01-07 08:00:00 2022-01-07 08:15:00 Chief Scientist Visit Pob, Adc Lab Main Roxi Ramirez [facility] BUILD[facility] 1.2.840.114 350.1.13.10 4.2.7.2.686 [id number] [facility] 2022-01-07 08:00:00 2022-01-07 08:00:00 Outpatient R ROXI RAMIREZ [facility] [id number] [facility] 2022-01-03 00:00:00 2022-01-03 00:00:00 Telephone Rylee Hatch [facility] 1.2.840.114 350.1.13.10 4.2.7.2.686 [id number] 044 [id number] [facility] 2021-12-29 00:00:00 2021-12-29 00:00:00 Prep For Surgery Klarissa Menard [facility] BUILDING 1.2.840.114 350.1.13.10 4.2.7.2.686 [id number] [facility] 2021-12-29 00:00:00 2021-12-29 00:00:00 Telephone Klarissa Menard [facility] BUILDING 1.2.840.114 350.1.13.10 4.2.7.2.686 [id number] [facility] 2021-12-29 00:00:00 2021-12-29 00:00:00 Telephone Roxi Ramirez [facility] SHANTEL?[facility] OFF[facility] BUILDING 1.2.840.114 350.1.13.10 4.2.7.2.686 [id number] 044 [id number] [facility] 2021-12-24 15:15:00 2021-12-24 16:18:46 Outpatient R ELENA JOHNSTON [facility] [id number] [facility] 2021-12-24 15:15:00 2021-12-24 16:18:46 Office Visit Elena [facility] 1.2.840.114 350.1.13.10 4.2.7.2.686 [id number] [facility] 2021-12-24 12:00:00 2021-12-24 12:29:18 Urgent Care Mila DardenCritical access hospital?[facility] 1.2840.114 350.1.13.10 4.2.7.2.686 [id number] [facility] 2021-12-19 00:00:00 2021-12-19 00:00:00 Refill Julio Cesar Quintero [facility]MAGALY [facility] BUILD[facility] 1.2840.114 350.1.13.10 4.2.7.2.686 [id number] [id number] [facility] 2021-12-10 14:33:15 2021-12-10 23:59:00 Hospital Encounter Roxi Ramirez [facility] 1.2840.114 350.1.13.10 4.2.7.2.686 [id number] [facility] 2021-12-10 14:26:16 2021-12-10 14:32:00 Outpatient R ROXI RAMIREZ [facility] [id number] [facility] 2021-12-10 14:26:16 2021-12-10 14:32:00 Hospital Encounter Roxi Ramirez [facility] 1.2840.114 350.1.13.10 4.2.7.2.686 [id number] [facility] 2021-12-08 17:07:43 2021-12-08 23:59:00 Outpatient R ROXI RAMIREZ [facility] [id number] [facility] 2021-12-08 17:07:43 2021-12-08 23:59:00 Hospital Encounter Roxi Ramirez [facility] 1.2.840.114 350.1.13.10 4.2.7.2.686 [id number] [facility] 2021-12-07 00:00:00 2021-12-07 00:00:00 Refill Leon [facility] SHANTEL?[facility] MEDICAL OFFICE BUILDING 1.2840.114 350.1.13.10 4.2.7.2.686 [id number] [id number] [facility] 2021-11-27 00:00:00 2021-11-27 00:00:00 Telephone Roxi Ramirez [facility] SHANTEL?[facility] MEDICAL OFFICE BUILDING 1.2840.114 350.1.13.10 4.2.7.2.686 [id number] [id number] [facility] 2021-11-18 15:17:18 2021-11-18 23:59:00 Hospital Encounter Roxi Ramirez [facility] 1.2840.114 350.1.13.10 4.2.7.2.686 [id number] [facility] 2021-11-18 15:17:18 2021-11-18 23:59:00 Outpatient R ROXI RAMIREZ [facility] [id number] [facility] 2021-11-18 13:45:00 2021-11-18 13:45:00 Chief Scientist Visit Lab, Bro Quintero [facility] SHANTEL?[facility] MEDICAL OFFICE BUILDING 1.2840.114 350.1.13.10 4.2.7.2.686 [id number] [facility] 2021-11-18 00:00:00 2021-11-18 00:00:00 Outpatient R ROXI RAMIREZ [facility] [id number] [facility] 2021-11-18 00:00:00 2021-11-18 00:00:00 Refill LeonJulio Cesar [facility] DIAZE?[facility] MED[facility] OFFICE BUILDING 1.2.840.114 350.1.13.10 4.2.7.2.686 [id number] [id number] [facility] 2021-11-16 00:00:00 2021-11-16 00:00:00 Telephone Roxi Ramirez [facility] FUNES?[facility] MED[facility] OFFICE BUILDING 1.2.840.114 350.1.13.10 4.2.7.2.686 [id number] 044 [id number] [facility] 2021-11-14 00:00:00 2021-11-14 00:00:00 Telephone Roxi Ramirez [place] [facility] FUNES?[facility] MED[facility] OFFICE BUILDING 1..840.114 350.1.13.10 4.2.7.2.686 [id number] 044 [id number] [facility] 2021-11-13 00:00:00 2021-11-13 00:00:00 Telephone Roxi Ramirez [place] [facility] FUNES?[facility] MED[facility] OFFICE BUILDING 1.2.840.114 350.1.13.10 4.2.7.2.686 [id number] [id number] [facility] 2021-11-11 10:00:00 2021-11-11 10:39:46 Chief Scientist Visit Lab, Bro - Roxi Richardson [place] [facility] DIAZE?[facility] MED[facility] OFFICE BUILDING 1.2.840.114 350.1.13.10 4.2.7.2.686 [id number] [facility] 2021-11-11 10:00:00 2021-11-11 10:15:00 Chief Scientist Visit Lab, Ang - Edinson MilianRoxi mcmullen [facility]?MAGALY [facility] BUILDING 1.2.840.114 350.1.13.10 4.2.7.2.686 [id number] [facility] 2021-11-11 10:00:00 2021-11-11 10:00:00 Outpatient ROXI BUTT [facility] [id number] [facility] 2021-11-11 09:00:00 2021-11-11 09:47:03 Outpatient R ROXI RAMIREZ [facility] [id number] [facility] 2021-11-11 09:00:00 2021-11-11 09:47:03 Outpatient R ROXI RAMIREZ [facility] [id number] [facility] 2021-11-11 09:00:00 2021-11-11 09:47:03 Office Visit Roxi Ramirez [place] [facility]MAG[facility] BUILDING 1.2.840.114 350.1.13.10 4.2.7.2.686 [id number] [facility] 2021-11-11 09:00:00 2021-11-11 09:47:03 Outpatient ROXI BUTT [facility] [id number] [facility] 2021-11-11 00:00:00 2021-11-11 00:00:00 Orders Only Doctor Unassigned, [place] [facility] 1.2.840.114 350.1.13.10 4.2.7.2.686 [id number] [facility] 2021-11-10 09:45:00 2021-11-10 09:45:00 Outpatient R ROXI RAMIREZ [facility] [id number] [facility] 2021-11-02 08:30:00 2021-11-02 08:30:00 Outpatient JULIO CESAR ISSA [facility] [id number] [facility] 2021-10-29 00:00:00 2021-10-29 00:00:00 Pre Visit Outreach Kelsy [place] 1..114 350.1.13.10 4.2.7.2.686 [id number] [facility] 2021-10-27 00:00:00 2021-10-27 00:00:00 Telephone Leon [facility] MEDICAL OFFICE BUILDING 1.114 350.1.13.10 4.2.7.2.686 [id number] [id number] [facility] 2021-10-19 00:00:00 2021-10-19 00:00:00 Refill Leon [facility] MEDICAL OFFICE BUILDING 1.114 350.1.13.10 4.2.7.2.686 [id number] [id number] [facility] 2021-09-13 08:00:00 2021-09-13 08:00:00 Outpatient JULIO CESAR ISSA [facility] [id number] [facility] 2021-08-30 12:45:00 2021-08-30 13:00:00 Office Visit Leon [facility] MEDICAL OFFICE BUILDING 1.114 350.1.13.10 4.2.7.2.686 [id number] [id number] [facility] 2021-08-30 12:45:00 2021-08-30 12:45:00 Outpatient JULIO CESAR ISSA [facility] [id number] [facility] 2021-08-30 00:00:00 2021-08-30 00:00:00 Orders Only Doctor Unassigned, [place] [facility] 1.114 350.1.13.10 4.2.7.2.686 [id number] [facility] 2021-08-25 00:00:00 2021-08-25 00:00:00 Telephone Julio Cesar Quintero [facility] MED[facility] OFFICE BUILDING 1.2.840.114 350.1.13.10 4.2.7.2.686 [id number] 044 [id number] [facility] 2021-07-30 00:00:00 2021-07-30 00:00:00 Refill Roxi Ramirez [facility] MEDICAL OFFICE BUILDING 1.2840.114 350.1.13.10 4.2.7.2.686 [id number] 044 [id number] [facility] 2021-07-29 00:00:00 2021-07-29 00:00:00 Refill [place] [facility] FUNES?[facility] MEDICAL OFFICE BUILDING 1.2.840.114 350.1.13.10 4.2.7.2.686 [id number] 044 [id number] [facility] 2021-07-26 00:00:00 2021-07-26 00:00:00 Refill Roxi Ramirez [facility] MEDICAL OFFICE BUILDING 1.2.840.114 350.1.13.10 4.2.7.2.686 [id number] [id number] [facility] 2021-07-22 00:00:00 2021-07-22 00:00:00 Refill Leon Julio Cesar [facility] SHANTEL?[facility] MEDICAL OFFICE BUILDING 1.2.840.114 350.1.13.10 4.2.7.2.686 [id number] [facility] 2021-07-19 08:30:00 2021-07-19 08:56:57 Outpatient R JULIO CESAR QUINTERO [facility] [id number] [facility] 2021-07-12 15:30:00 2021-07-12 16:14:10 Outpatient R RYLEE HATCH [facility] [id number] [facility] 2021-07-08 13:00:00 2021-07-08 13:43:31 Outpatient R ROXI RAMIREZ [facility] [id number] [facility] 2021-07-08 00:00:00 2021-07-08 00:00:00 Orders Only Doctor Unassigned, [place] [facility] 1.2.840.114 350.1.13.10 4.2.7.2.686 [id number] [facility] 2021-03-19 00:00:00 2021-03-19 00:00:00 Telephone Leon [facility]?OANHBlane [facility] BUILD[facility] 1..840.114 350.1.13.10 4.2.7.2.686 [id number] [id number] [facility] 2021-03-11 18:56:06 2021-03-11 19:16:06 Urgent Care Juan Susana [facility] BUILD[facility] 1.2.840.114 350.1.13.10 4.2.7.2.686 [id number] [facility] 2021-03-11 19:00:00 2021-03-11 19:00:00 Outpatient R SUSANA ADAMES [facility] [id number] [facility] 2021-03-09 10:15:00 2021-03-09 10:49:43 Outpatient R JULIO CESAR QUINTERO [facility] [id number] [facility] 2021-03-09 10:22:52 2021-03-09 10:37:52 Office Visit Leon [facility] BUILD[facility] 1.2.840.114 350.1.13.10 4.2.7.2.686 [id number] [id number] [facility] 2021-03-09 10:15:00 2021-03-09 10:15:00 Outpatient R JULIO CESAR QUINTERO [facility] [id number] [facility] 2021-03-09 00:00:00 2021-03-09 00:00:00 Letter (Out) Julio Cesar Quintero [facility] SHANTEL?[facility]ILD[facility] 1..840.114 350.1.13.10 4.2.7.2.686 [id number] [facility] 2021-03-08 12:00:00 2021-03-08 12:00:00 Outpatient R JULIO CESAR QUINTERO [facility] [id number] [facility] 2021-03-05 09:26:30 2021-03-05 09:55:51 Urgent Care Natalya Darden [facility] SHANTEL?[facility] BUILD[facility] 1.840.114 350.1.13.10 4.2.7.2.686 [id number] [facility] 2021-03-05 09:20:00 2021-03-05 09:55:51 Outpatient ADRIANA LUNA [facility] [id number] [facility] 2021-03-05 00:00:00 2021-03-05 00:00:00 Letter (Out) Provider, Bro Neves Urgent [facility]?OANHBlane [facility] BUILD[facility] 1.840.114 350.1.13.10 4.2.7.2.686 [id number] [facility] 2020-12-18 00:00:00 2020-12-18 00:00:00 Telephone Julio Cesar Quintero [facility] Opal [facility] Office [facility] 1.840.114 350.1.13.10 4.2.7.2.686 [id number] [id number] [facility] 2020-12-14 00:00:00 2020-12-14 00:00:00 Telephone Julio Cesar Quintero [facility] Office [facility] 1.840.114 350.1.13.10 4.2.7.2.686 [id number] [id number] [facility] 2020-12-11 00:00:00 2020-12-11 00:00:00 Telephone Julio Cesar Quintero [facility] 1.840.114 350.1.13.10 4.2.7.2.686 [id number] 044 [id number] [facility] 2020-12-07 09:27:42 2020-12-07 09:42:42 Office Visit Julio Cesar Quintero [facility] 1.0.114 350.1.13.10 4.2.7.2.686 [id number] [facility] 2020-12-07 09:30:00 2020-12-07 09:30:00 Outpatient R JULIO CESAR QUINTERO [facility] [id number] [facility] 2020-10-14 13:58:01 2020-10-14 14:13:01 Office Visit Julio Cesar Quintero [facility] 1.0.114 350.1.13.10 4.2.7.2.686 [id number] [id number] [facility] 2020-10-14 14:00:00 2020-10-14 14:00:00 Outpatient R JULIO CESAR QUINTERO [facility] [id number] [facility] 2020-10-14 00:00:00 2020-10-14 00:00:00 Telephone Julio Cesar Quintero [facility] 1..114 350.1.13.10 4.2.7.2.686 [id number] [id number] [facility] 2020-10-14 00:00:00 2020-10-14 00:00:00 Letter (Out) Julio Cesar Quintero [facility] 1..114 350.1.13.10 4.2.7.2.686 [id number] [id number] [facility] 2020-10-14 00:00:00 2020-10-14 00:00:00 Telephone Julio Cesar Quintero [facility] 1..114 350.1.13.10 4.2.7.2.686 [id number] [id number] [facility] 2020-09-28 00:00:00 2020-09-28 00:00:00 Telephone Julio Cesar Quintero [facility] 1.114 350.1.13.10 4.2.7.2.686 [id number] [id number] [facility] 2020-09-23 08:29:04 2020-09-23 08:49:04 Chief Scientist Visit Lab, Adc Fam Pob I Leon [facility] 1. 350.1.13.10 4.2.7.2.686 [id number] [id number] [facility] 2020-09-23 07:53:53 2020-09-23 08:23:53 Office Visit Julio Cesar Quintero [facility] 1.114 350.1.13.10 4.2.7.2.686 [id number] [id number] [facility] 2020-09-23 08:00:00 2020-09-23 08:00:00 Outpatient R LEON JULIO CESAR [facility] [id number] [facility] 2020-05-06 16:39:37 2020-05-06 16:59:37 Urgent Care Isaac Crocker [facility]ly [facility] 1.2.840.114 350.1.13.10 4.2.7.2.686 [id number] [id number] [facility] 2020-05-06 16:40:00 2020-05-06 16:40:00 Outpatient R MADDIE HUBBARD [facility] [id number] [facility] 2020-05-06 00:00:00 2020-05-06 00:00:00 Letter (Out) Doctor Unassigned, [place] [facility] 1.2840.114 350.1.13.10 4.2.7.2.686 [id number] [id number] [facility] 2019-09-04 00:00:00 2019-09-04 00:00:00 Refeduin Quintero [facility] 1.840.114 350.1.13.10 4.2.7.2.686 [id number] [id number] [facility] 2019-08-09 00:00:00 2019-08-09 00:00:00 Refill Leon [facility] 1.840.114 350.1.13.10 4.2.7.2.686 [id number] [id number] [facility] 2019-07-24 00:00:00 2019-07-24 00:00:00 Refill Leon [facility] 1.2840.114 350.1.13.10 4.2.7.2.686 [id number] [id number] [facility] 2019-07-19 00:00:00 2019-07-19 00:00:00 Refeduin Leon [facility] 1.2840.114 350.1.13.10 4.2.7.2.686 [id number] 044 [id number] [facility] 2019-06-25 00:00:00 2019-06-25 00:00:00 Refill Julio Cesar Quintero [facility] 1.2.840.114 350.1.13.10 4.2.7.2.686 [id number] [id number] [facility] 2019-05-22 00:00:00 2019-05-22 00:00:00 Refill Julio Cesar Quintero [facility] 1.2.840.114 350.1.13.10 4.2.7.2.686 [id number] [id number] [facility] 2018-12-27 09:52:49 2018-12-27 10:19:38 Office Visit Julio Cesar Quintero [facility] 1.2.840.114 350.1.13.10 4.2.7.2.686 [id number] 044 [id number] [facility] 2018-12-24 00:00:00 2018-12-24 00:00:00 Telephone Julio Cesar Quintero [facility] 1.2.840.114 350.1.13.10 4.2.7.2.686 [id number] [id number] [facility] Results Test Description Test Time Test Comments Results Result Comments Source MR Brain wo contrast 19:50:40 MR BRAIN WO CONTRAST COMPARISON: None. HISTORY: ?tremor TECHNIQUE: Multi-weighted multi-planar MRI of the head was done withoutcontrast on 1.5T magnet. FINDINGS: Prominent ventricles and cerebral sulci suggestive mild degree of brainvolume loss. No midline shift, hydrocephalus or pathological extra-axialfluid collection is present. The basal cisterns are unremarkable. No restricted diffusion is present to suggest acute/subacute infarct. Mildsupratentorial white matter T2/FLAIR hyperintensities are noted which arenonspecific and likely related to chronic small vessel disease. No abnormalgradient blooming. No specific mild bilateral mastoid effusion seen. The T2 flow voids for themajor intracranial vessels are unremarkable. No abnormal fluid signal ispresent in the paranasal air sinuses. [facility] XR Cervical spine 3 vw 18:53:16 HISTORY: Cervical radiculopathy. FINDINGS: AP, lateral, swimmer's and 2 of odontoid views of the cervicalspine are obtained which showed no acute fracture or dislocation. Changes of moderate degenerative disc disease noted at C4-C5, C5-C6, C6-C7with narrowing of the disc spaces by up to 60%, osteophytes along theventral as well as dorsal vertebral margins encroaching into the spinalcanal. Facet arthritis is noted at multiple cervical levels. Uncovertebral joint degenerative disease is present with prominentosteophytes encroaching into the neural foramina on both sides at C5-C6,right side at C4-C5 and less at. C6-C7. No cervical rib. Visualized apical portions of both lungs appear clear. CONCLUSIONS: 1. No acute fracture or dislocation. 2. Degenerative disc disease and uncovertebral joint degenerative diseaseat lower cervical levels discussed above. [facility] XR Chest 2 15:02:47 HISTORY: Chronic cough. TECHNIQUE: PA and lateral views of the chest are obtained. FINDINGS: Mild generalized hyperinflation of lungs noted consistent withobstructive lung disease. Central pulmonary arteries are slightly dilated.No acute pneumonia detected. No pneumothorax or pleural effusion orpulmonary congestion. Cardiothoracic ratio of approximately 12.4/31.5 cm isconsistent with normal cardiac size. No compression deformities seen in the thoracic vertebral bodies. CONCLUSIONS: Mild COPD. [facility] US ABDOMEN LIMITED 15:00:34 HISTORY: ?Abnormal LFTs. COMPARISON: Previous study of 12/08/2021. TECHNIQUE: Liver was evaluated in multiple planes without and with colorimaging. FINDINGS: Liver is approximately 19.1 cm and showed homogeneously increasedechotexture. Hepatic/portal venous systems appear patent with hepatopedalportal venous flow confirmed. No fluid is seen in the right upper abdomen.No dilatation of the intrahepatic biliary ducts. Gallbladder is unremarkable. Common hepatic duct is 3.3 mm. Spleen ispoorly visualized, measuring only 7.6 x 4.7 cm. CONCLUSIONS: Hepatomegaly with diffuse increased echotexture of theparenchyma, consistent with steatosis. Findings are stable since 12/08/2021tudy. [facility] Notes Date/Time Note [facility] 13:19:00Upcoming Encounters Health Maintenance Due Date Last Done Comments CT Colonography 1967 Colonoscopy 1967 Colorectal Cancer Screening 1967 FIT-DNA 1967 FIT 1967 FOBT 1967 Sigmoidoscopy 1967 Hepatitis B Vaccines (1 of 3 - 19+ 3-dose series) 1986 Pap Smear 1988 Lung Cancer Screening 2017 Annual Physical 11/11/2022 11/11/2021, 03/06/2017 Pneumococcal Vaccine: Pediatrics (0 to 5 Years) and At-Risk Patients (6 to 64 Years) (2 of 2 - PCV) 11/11/2022 11/11/2021 Influenza Vaccine (#1) 2024 02/27/2018 Mammogram 05/24/2026 05/24/2024, 05/08, 12/10/2021, Additional history exists Cervical Cancer Screening 11/11/2026 HPV/Cotest 11/11/2026 11/11/2021 Lipid Panel 04/17/2029 04/17/2024 DTaP/Tdap/Td Vaccines (2 - Td or Tdap) 04/07/2031 04/07/2021 Zoster Vaccines Completed 05/03/2018, 02/27/2018 HIB Vaccines Aged Out No longer eligi ble based on patient's age to complete this topic HPV Vaccines Aged Out No longer eligi ble based on patient's age to complete this topic Hepatitis A Vaccines Aged Out No long er eligible based on patient's age to complete this topic IPV Vaccines Aged Out No longer eligi ble based on patient's age to complete this topic Meningococcal Vaccine Aged Out No mirlande viet eligible based on patient's age to complete this topic Rotavirus Vaccines Aged Out No longer eligible based on patient's age to complete this topic [facility]jxlpug8150-08-28 13:19:00 [facility]neyUzybske8056-25-50 09:09:54 Patient called and would like to discuss the results of her Vitamin B1 levels. She was already notified about the actual results but would like to discuss in further detail. [employer] [facility] [id number] 08:46:54 [facility] HospitalYxmvzqg8037-78-30 08:46:54Upcoming Encounters Health Maintenance Due Date Last Done Comments CT Colonography 1967 Colonoscopy 1967 Colorectal Cancer Screening 1967 FIT-DNA 1967 FIT 1967 FOBT 1967 Sigmoidoscopy 1967 Hepatitis B Vaccines (1 of 3 - 19+ 3-dose series) 1986 Pap Smear 1988 Lung Cancer Screening 2017 Annual Physical 11/11/2022 11/11/2021, 03/06/2017 Pneumococcal Vaccine: Pediatrics (0 to 5 Years) and At-Risk Patients (6 to 64 Years) (2 of 2 - PCV) 11/11/2022 11/11/2021 Influenza Vaccine (#1) 2024 02/27/2018 Mammogram 05/24/2026 05/24/2024, 05/08, 12/10/2021, Additional history exists Cervical Cancer Screening 11/11/2026 HPV/Cotest 11/11/2026 11/11/2021 Lipid Panel 04/17/2029 04/17/2024 DTaP/Tdap/Td Vaccines (2 - Td or Tdap) 04/07/2031 04/07/2021 Zoster Vaccines Completed 05/03/2018, 02/27/2018 HIB Vaccines Aged Out No longer eligi ble based on patient's age to complete this topic HPV Vaccines Aged Out No longer eligi ble based on patient's age to complete this topic Hepatitis A Vaccines Aged Out No long er eligible based on patient's age to complete this topic IPV Vaccines Aged Out No longer eligi ble based on patient's age to complete this topic Meningococcal Vaccine Aged Out No mirlande viet eligible based on patient's age to complete this topic Rotavirus Vaccines Aged Out No longer eligible based on patient's age to complete this topic [facility] HospitalNyiuubs2894-69-62 08:46:54 [facility] HospitalKyqxrca3141-75-39 18:36:42* Imaging (Routine) - Pending Review Specialty Diagnoses / Procedures Referred By Contelias t Referred To Contact Radiology Diagnoses Essential tremor Procedures NM brain SPECT Razia Ballesteros MD [address] [place] [address] Phone: tel: fax: Referral ID Status Reason Start Date Expiration Date V isits Requested Visits Authorized [id number] Pending Review 07/03/2024 12/30/2024 2 2 [employer]* Imaging (Routine) - Incomplete Specialty Diagnoses / Procedures Referred By Contac t Referred To Contact Radiology Diagnoses Cervical radiculopathy Procedures MRI cervical spine wo IV contrast Razia Ballesteros MD [address] [place] [address] Phone: tel: fax: Referral ID Status Reason Start Date Expiration Date V isits Requested Visits Authorized [id number] Incomplete 07/03/2024 12/30/2024 1 1 [employer] [facility] [id number] 18:36:42* * Neurology (Routine) - Authorized Specialty Diagnoses / Procedures Referred By Contac t Referred To Contact Neurology Diagnoses Essential tremor Cervical radiculopathy Procedures EMG Razia Ballesteros MD [address] [place] [address] Phone: tel: fax: [facility] [address] [place] [address] Phone: tel: fax: Referral ID Status Reason Start Date Expiration Date V isits Requested Visits Authorized [id number] Authorized 05/31/2024 11/27/2024 1 1 [facility] HospitalKbwufxl0526-39-59 18:36:42 [facility] HospitalVmkndcg0910-06-37 18:36:42* Razia Ballesteros MD - 07/03/2024 8:15 AM [employer]OR Associated Order(s): EMG Pre-Procedure Diagnose(s): Essential tremor; Cervical radiculopathy Post-Procedure Diagnose(s): Essential tremor; Cervical radiculopathy Patient ID: Christy Ledesma is a 59 y.o. female. EMG Date/Time: 07/03/2024 6:30 PM Performed by: Razia Ballesteros MD Authorized by: Razia Ballesteros MD Indications: Indications: Paresthesias, weakness, cervical radiculopathy Procedure specific details: Nerve conduction study of right upper and lower extremity Motor studies The ulnar nerve demonstrates normal latency at 3.3 ms, normal amplitude at 7.9 mV at the wrist and 6.8 mV above the elbow. Conduction velocity is normal at 55.2 m/s. The median nerve demonstrates prolonged latency at 5.1 ms, normal amplitude at 7.1 mV and normal conduction velocity at 57.5 m/s. The peroneal nerve demonstrates normal latency at 5.3 ms, normal amplitude at 5.4 mV at the ankle and 5.1 mV above the knee. Conduction velocity is normal at 45.1 m/s. The tibial nerve demonstrates normal latency at 5.8 ms, normal amplitude at 10.7 mV and normal conduction velocity at 46.8 m/s. Sensory studies The ulnar nerve demonstrates prolonged latency at 3.2 ms, depressed amplitude at 7.7 ?V and normal conduction velocity at 53.5 m/s. The median nerve demonstrates prolonged latency at 3.9 ms, depressed amplitude at 9.3 ?V and decreased conduction velocity at 44.7 m/s. The sural nerve demonstrates normal latency at 3.4 ms and normal amplitude at 11.2 ?V. Interpretation Consistent with mild to moderate carpal tunnel syndrome Electromyogram of right upper and lower extremity Upper extremity In the deltoid, bicep, tricep, extensor digitorum communis and first dorsal interosseous insertional activity was normal. There was no abnormal resting activity. Voluntary contraction demonstrated normal recruitment and a full interference pattern. Motor unit size and duration was normal. Lower extremity In the vastus medialis, tibialis anterior, medial and lateral gastrocnemius and extensor digitorum brevis insertional activity was normal. There was no abnormal resting activity. Voluntary contraction demonstrated normal recruitment and a full interference pattern. Motor unit size and duration was normal. Interpretation Normal study [employer] * Razia Ballesteros MD - 07/03/2024 8:15 AM [employer] History of Present Illness HPI Patient returns for reevaluation. Plain films demonstrate spondylosis. NCV/EMG mild carpal tunnel. Patient has a tremor consistent with essential tremor but it does have a slight dystonic component with a mild resting component so we will check a DaTscan. Continues to have complaints of generalized weakness and gait instability will check MRI cervical spine to evaluate for possible spondylitic myelopathy contributing. Brain MRI was normal for age Allergies as of 07/03/2024 - Reviewed 07/03/2024 Allergen Reaction Noted Prednisone Anaphylaxis 03/11/2021 Bupropion Hives 07/08/2021 Buspirone Hives 07/08/2021 Guaifenesin-codeine Swelling 03/05/2015 Methylprednisolone Hives 03/19/2021 Other 03/01/2024 Primidone 03/01/2024 Varenicline Other 11/22/2018 has a current medication list which includes the following prescription(s): acamprosate, brinzolamide-brimonidine, cetirizine, ezetimibe, hydroxyzine hcl, ipratropium, levothyroxine, montelukast sodium, naltrexone, omeprazole, paroxetine hcl, and propranolol. Vitals:07/03/24 0843 BP: 104/84 Pulse: 75 Resp: 16 Temp: 36.1 ?C (97 ?F) Neurological Exam Mental Status Awake and alert. Speech is normal. Cranial NervesCN II: Visual acuity is normal. CN III, IV, : Extraocular movements intact bilaterally. Pupils equal round and reactive to light bilaterally. CN VII: Full and symmetric facial movement. CN IX, X: Palate elevates symmetrically CN XI: Shoulder shrug strength is normal. CN XII: Tongue midline without atrophy or fasciculations. MotorStrength is 5/5 throughout all four extremities. Moderate postural and kinetic tremor with slight distal dystonic component. SensoryTemperature abnormality: Decreased distally. Vibration abnormality: Decreased distally. ReflexesDeep tendon reflexes: Suppressed but symmetric. GaitCasual gait is normal including stance, stride, and arm swing. Results for orders placed or performed in visit on 05/31/24 Ceruloplasmin Collection Time: 06/26/24 9:47 AM Result Value Ref Range CERULOPLASMIN 26 14 - 48 mg/dL Copper Level Collection Time: 06/26/24 9:47 AM Result Value Ref Range Copper Lvl 114 70 - 175 mcg/dL C-Reactive Protein Collection Time: 06/26/24 9:47 AM Result Value Ref Range C-Reactive Protein <3.0 <8.0 mg/L Immunofixation (BARTOLO) Collection Time: 06/26/24 9:47 AM Result Value Ref Range BARTOLO Ser Interp SEE NOTE Sedimentation Rate Collection Time: 06/26/24 9:47 AM Result Value Ref Range Sed Rate 2 0 - 30 mm/h Zinc Level Collection Time: 06/26/24 9:47 AM Result Value Ref Range Zinc Lvl 80 60 - 130 mcg/dL Vitamin B12 Level Collection Time: 06/26/24 9:47 AM Result Value Ref Range Vitamin B12 Lvl 429 200 - 1,100 pg/mL West Nile Virus Antibodies Collection Time: 06/26/24 9:47 AM Result Value Ref Range W Nile Ab IgG <1.30 index W Nile Ab IgM <0.90 index RPR with Reflexes Collection Time: 06/26/24 9:47 AM Result Value Ref Range RPR NON-REACTIVE NON-REACTIVE No MRI head results found for the past 12 months Assessment & PlanDiagnoses and all orders for this visit: Weakness Essential tremor - EMG - NM brain SPECT; Future Cervical radiculopathy - EMG - MRI cervical spine wo IV contrast; Future Check DaTscan for the tremor, MRI cervical spine for the generalized weakness and radicular symptoms. [facility]2025-02-26 18:36:42Upcoming Encounters Scheduled Orders Name Type Priority Associated Diagnoses Orde r Schedule MRI cervical spine wo IV contrast Imaging Routine Cervical radiculopathy Expected: 07/03/2024, Expires: 07/03/2025 NM brain SPECT Imaging Routine Essential tremor Expe cted: 07/03/2024, Expires: 07/03/2025 Health Maintenance Due Date Last Done Comments CT Colonography 1967 Colonoscopy 1967 Colorectal Cancer Screening 1967 FIT-DNA 1967 FIT 1967 FOBT 1967 Sigmoidoscopy 1967 Hepatitis B Vaccines (1 of 3 - 19+ 3-dose series) 1986 Pap Smear 1988 Lung Cancer Screening 2017 Annual Physical 11/11/2022 11/11/2021, 03/06/2017 Pneumococcal Vaccine: Pediatrics (0 to 5 Years) and At-Risk Patients (6 to 64 Years) (2 of 2 - PCV) 11/11/2022 11/11/2021 Influenza Vaccine (#1) 2024 02/27/2018 Mammogram 05/24/2026 05/24/2024, 05/08, 12/10/2021, Additional history exists Cervical Cancer Screening 11/11/2026 HPV/Cotest 11/11/2026 11/11/2021 Lipid Panel 04/17/2029 04/17/2024 DTaP/Tdap/Td Vaccines (2 - Td or Tdap) 04/07/2031 04/07/2021 Zoster Vaccines Completed 05/03/2018, 02/27/2018 HIB Vaccines Aged Out No longer eligi ble based on patient's age to complete this topic HPV Vaccines Aged Out No longer eligi ble based on patient's age to complete this topic Hepatitis A Vaccines Aged Out No long er eligible based on patient's age to complete this topic IPV Vaccines Aged Out No longer eligi ble based on patient's age to complete this topic Meningococcal Vaccine Aged Out No mirlande viet eligible based on patient's age to complete this topic Rotavirus Vaccines Aged Out No longer eligible based on patient's age to complete this topic [facility] HospitalNusvosp9618-55-99 18:36:42 Diagnosis Weakness - Primary Other malaise and fatigue Essential tremor Cervical radiculopathy Brachial neuritis or radiculitis nos [facility] HospitalIfphogz2617-19-24 18:36:42 [facility] HospitalLsuqgcd1572-78-75 08:39:38 Received lab orders from razia Ballesteros gave paper orders to the Lab Department and I upload to [employer]. [facility] HokeKebfvl9027-08-97 09:45:09 Last Refilled: albuterol 90 mcg/actuation inhaler 8.5 g 1 09/25/2023 -- No Sig: INHALE TWO (2) PUFFS BY MOUTH EVERY 6 (SIX) HOURS NEEDED FOR WHEEZING. Sent to pharmacy as: ALBUTEROL 90 mcg/actuation inhaler Class: eRX Order: [id number] Date/Time Signed: 09/25/2023 09:02 E-Prescribing Status: Receipt confirmed by pharmacy (09/25/2023 9:02 AM CDT) Recent Visits Date Type Provider Dept 04/17/24 Office Visit Julio Cesar Quintero MD [facility] 02/26/24 Office Visit Julio Cesar Quintero MD [facility] 10/10/23 Office Visit Julio Cesar Quintero MD [facility] Showing recent visits within past 540 days with a meds authorizing provider and meeting all other requirements Future Appointments No visits were found meeting these conditions. 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[employer] [facility]Acepbg5993-28-56 19:09:08* Neurology (Routine) - Pending Review Specialty Diagnoses / Procedures Referred By Contac t Referred To Contact Diagnoses Essential tremor Cervical radiculopathy Procedures EMG Razia Ballesteros MD [address] [place] [address] Phone: tel: fax: Referral ID Status Reason Start Date Expiration Date V isits Requested Visits Authorized [id number] Pending Review 05/31/2024 11/27/2024 1 1 [employer]OR* Imaging (Routine) - Incomplete Specialty Diagnoses / Procedures Referred By Contac t Referred To Contact Radiology Diagnoses Essential tremor Cervical radiculopathy Procedures MRI brain wo IV contrast Razia Ballesteros MD [address] [place] [address] Phone: tel: fax: Referral ID Status Reason Start Date Expiration Date V isits Requested Visits Authorized [id number] Incomplete 05/31/2024 11/27/2024 1 1 [employer]ILITY SUPER[employer]OR [facility] HospitalPhkinvt6739-20-49 19:09:08* [facility]neyPbsibav9828-76-71 19:09:08 [facility] HospitalFsjypjj2318-68-54 19:09:08* Razia Ballesteros MD - 05/31/2024 1:15 PM 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 Multiple falls, using a rolling walker now. Saw another neurologist, will review the notes. Brain MRI 2022, unremarkable. Needs handicapped placard, can't ambulate over 100 feet without a rolling walker. Applying for disability. Labs 04/30 reviewed, TSH elevated, on meds now. Memory problems as well. Will write her for a handicap parking sticker, had some additional paperwork for her disability claim also Allergies as of 05/31/2024 - Reviewed 05/31/2024 Allergen Reaction Noted Prednisone Anaphylaxis 03/11/2021 Bupropion Hives 07/08/2021 Buspirone Hives 07/08/2021 Guaifenesin-codeine Swelling 03/05/2015 Methylprednisolone Hives 03/19/2021 Other 03/01/2024 Primidone 03/01/2024 Varenicline Other 11/22/2018 has a current medication list which includes the following prescription(s): ezetimibe, hydroxyzine hcl, levothyroxine, montelukast sodium, naltrexone, paroxetine hcl, and propranolol. Answers submitted by the patient for this visit: Review of Systems (Submitted on 05/29/2024) Back pain: Yes Trouble walking : Yes Joint pain: Yes Muscle aches: Yes Neck pain: Yes Neck stiffness: Yes Side pain: Yes Other muscle or joint symptoms: Body Loss of sensation or numbness: Yes Speech difficulty: Yes Tremors: Yes Agitation: Yes Anxiety or nervousness: Yes Decreased concentration: Yes Unhappiness or dissatisfaction: Yes Chest tightness: Yes Cough: Yes Shortness of breath: Yes Wheezing: Yes Vitals:05/31/24 1314 BP: 123/82 Pulse: 94 Resp: 16 Temp: (!) 36 ?C (96.8 ?F) SpO2: 96% Neurological Exam Mental Status Awake and alert. Speech is normal. Cranial NervesCN II: Visual acuity is normal. CN III, IV, : Extraocular movements intact bilaterally. Pupils equal round and reactive to light bilaterally. CN VII: Full and symmetric facial movement. CN IX, X: Palate elevates symmetrically CN XI: Shoulder shrug strength is normal. CN XII: Tongue midline without atrophy or fasciculations. MotorStrength is 5/5 throughout all four extremities. Moderate tremor. SensoryTemperature abnormality: Decreased distally. Vibration abnormality: Decreased distally. ReflexesDeep tendon reflexes: Suppressed but symmetric. GaitCasual gait: Ataxic gait. Lurching. No results found for this or any previous visit. No MRI head results found for the past 12 months Assessment & PlanDiagnoses and all orders for this visit: Essential tremor - Ceruloplasmin; Future - Copper Level; Future - C-Reactive Protein; Future - Immunofixation (BARTOLO); Future - Sedimentation Rate; Future - Zinc Level; Future - Vitamin B6 Level; Future - Vitamin B12 Level; Future - Vitamin B1 Level; Future - West Nile Virus Antibodies; Future - RPR with Reflexes; Future - XR cervical spine 2-3 views; Future - MRI brain wo IV contrast; Future - EMG; Future Cervical radiculopathy - Ceruloplasmin; Future - Copper Level; Future - C-Reactive Protein; Future - Immunofixation (BARTOLO); Future - Sedimentation Rate; Future - Zinc Level; Future - Vitamin B6 Level; Future - Vitamin B12 Level; Future - Vitamin B1 Level; Future - West Nile Virus Antibodies; Future - RPR with Reflexes; Future - XR cervical spine 2-3 views; Future - MRI brain wo IV contrast; Future - EMG; Future Repeat imaging and labs, NCV/EMG upper and lower extremity. Time: 45 minutes [facility]2025-01-24 19:09:08Upcoming Encounters Scheduled Orders Name Type Priority Associated Diagnoses Orde r Schedule Ceruloplasmin Lab Routine Essential tremor Cervical radiculopathy Expected: 05/31/2024 (Approximate), Expires: 05/31/2025 Copper Level Lab Routine Essential tremor Cervical radiculopathy Expected: 05/31/2024 (Approximate), Expires: 05/31/2025 C-Reactive Protein Lab Routine Essential tremor Cervical radiculopathy Expected: 05/31/2024 (Approximate), Expires: 05/31/2025 Immunofixation (BARTOLO) Lab Routine Essential tremor Cervical radiculopathy Expected: 05/31/2024 (Approximate), Expires: 05/31/2025 Sedimentation Rate Lab Routine Essential tremor Cervical radiculopathy Expected: 05/31/2024 (Approximate), Expires: 05/31/2025 Zinc Level Lab Routine Essential tremor Cervical radiculopathy Expected: 05/31/2024 (Approximate), Expires: 05/31/2025 Vitamin B6 Level Lab Routine Essential tremor Cervical radiculopathy Expected: 05/31/2024 (Approximate), Expires: 05/31/2025 Vitamin B12 Level Lab Routine Essential tremor Cervical radiculopathy Expected: 05/31/2024 (Approximate), Expires: 05/31/2025 Vitamin B1 Level Lab Routine Essential tremor Cervical radiculopathy Expected: 05/31/2024 (Approximate), Expires: 05/31/2025 West Nile Virus Antibodies Lab Routine Essential tremor Cervical radiculopathy Expected: 05/31/2024 (Approximate), Expires: 05/31/2025 RPR with Reflexes Lab Routine Essential tremor Cervical radiculopathy Expected: 05/31/2024 (Approximate), Expires: 05/31/2025 XR cervical spine 2-3 views Imaging Routine Essential tremor Cervical radiculopathy Expected: 05/31/2024, Expires: 05/31/2025 MRI brain wo IV contrast Imaging Routine Essential tremor Cervical radiculopathy Expected: 05/31/2024, Expires: 05/31/2025 EMG Neurology Routine Essential tremor Cervical radiculopathy Expected: 05/31/2024, Expires: 09/28/2024 Health Maintenance Due Date Last Done Comments CT Colonography 1967 Colonoscopy 1967 Colorectal Cancer Screening 1967 FIT-DNA 1967 FIT 1967 FOBT 1967 Sigmoidoscopy 1967 Hepatitis B Vaccines (1 of 3 - 19+ 3-dose series) 1986 Pap Smear 1988 Lung Cancer Screening 2017 Annual Physical 11/11/2022 11/11/2021, 03/06/2017 Pneumococcal Vaccine: Pediatrics (0 to 5 Years) and At-Risk Patients (6 to 64 Years) (2 of 2 - PCV) 11/11/2022 11/11/2021 Influenza Vaccine (#1) 2024 02/27/2018 Mammogram 05/24/2026 05/24/2024, 05/08, 12/10/2021, Additional history exists Cervical Cancer Screening 11/11/2026 HPV/Cotest 11/11/2026 11/11/2021 Lipid Panel 04/17/2029 04/17/2024 DTaP/Tdap/Td Vaccines (2 - Td or Tdap) 04/07/2031 04/07/2021 Zoster Vaccines Completed 05/03/2018, 02/27/2018 HIB Vaccines Aged Out No longer eligi ble based on patient's age to complete this topic HPV Vaccines Aged Out No longer eligi ble based on patient's age to complete this topic Hepatitis A Vaccines Aged Out No long er eligible based on patient's age to complete this topic IPV Vaccines Aged Out No longer eligi ble based on patient's age to complete this topic Meningococcal Vaccine Aged Out No mirlande viet eligible based on patient's age to complete this topic Rotavirus Vaccines Aged Out No longer eligible based on patient's age to complete this topic [facility] HospitalKxdokgl9160-06-71 19:09:08 Diagnosis Essential tremor - Primary Cervical radiculopathy Brachial neuritis or radiculitis nos [facility] [id number] 19:09:08 [facility] HospitalUcchlss9344-36-40 19:09:07* [facility] HospitalCjsmorm2693-73-27 19:09:07 [facility] HospitalAlfavfg6417-24-17 19:09:07* Razia Ballesteros MD - 05/31/2024 1:15 PM [employer]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 Multiple falls, using a rolling walker now. Saw another neurologist, will review the notes. Brain MRI 2022, unremarkable. Needs handicapped placard, can't ambulate over 100 feet without a rolling walker. Applying for disability. Labs 04/30 reviewed, TSH elevated, on meds now. Memory problems as well. Will write her for a handicap parking sticker, had some additional paperwork for her disability claim also Allergies as of 05/31/2024 - Reviewed 05/31/2024 Allergen Reaction Noted Prednisone Anaphylaxis 03/11/2021 Bupropion Hives 07/08/2021 Buspirone Hives 07/08/2021 Guaifenesin-codeine Swelling 03/05/2015 Methylprednisolone Hives 03/19/2021 Other 03/01/2024 Primidone 03/01/2024 Varenicline Other 11/22/2018 has a current medication list which includes the following prescription(s): ezetimibe, hydroxyzine hcl, levothyroxine, montelukast sodium, naltrexone, paroxetine hcl, and propranolol. Answers submitted by the patient for this visit: Review of Systems (Submitted on 05/29/2024) Back pain: Yes Trouble walking : Yes Joint pain: Yes Muscle aches: Yes Neck pain: Yes Neck stiffness: Yes Side pain: Yes Other muscle or joint symptoms: Body Loss of sensation or numbness: Yes Speech difficulty: Yes Tremors: Yes Agitation: Yes Anxiety or nervousness: Yes Decreased concentration: Yes Unhappiness or dissatisfaction: Yes Chest tightness: Yes Cough: Yes Shortness of breath: Yes Wheezing: Yes Vitals:05/31/24 1314 BP: 123/82 Pulse: 94 Resp: 16 Temp: (!) 36 ?C (96.8 ?F) SpO2: 96% Neurological Exam Mental Status Awake and alert. Speech is normal. Cranial NervesCN II: Visual acuity is normal. CN III, IV, : Extraocular movements intact bilaterally. Pupils equal round and reactive to light bilaterally. CN VII: Full and symmetric facial movement. CN IX, X: Palate elevates symmetrically CN XI: Shoulder shrug strength is normal. CN XII: Tongue midline without atrophy or fasciculations. MotorStrength is 5/5 throughout all four extremities. Moderate tremor. SensoryTemperature abnormality: Decreased distally. Vibration abnormality: Decreased distally. ReflexesDeep tendon reflexes: Suppressed but symmetric. GaitCasual gait: Ataxic gait. Lurching. No results found for this or any previous visit. No MRI head results found for the past 12 months Assessment & PlanDiagnoses and all orders for this visit: Essential tremor - Ceruloplasmin; Future - Copper Level; Future - C-Reactive Protein; Future - Immunofixation (BARTOLO); Future - Sedimentation Rate; Future - Zinc Level; Future - Vitamin B6 Level; Future - Vitamin B12 Level; Future - Vitamin B1 Level; Future - West Nile Virus Antibodies; Future - RPR with Reflexes; Future - XR cervical spine 2-3 views; Future - MRI brain wo IV contrast; Future - EMG; Future Cervical radiculopathy - Ceruloplasmin; Future - Copper Level; Future - C-Reactive Protein; Future - Immunofixation (BARTOLO); Future - Sedimentation Rate; Future - Zinc Level; Future - Vitamin B6 Level; Future - Vitamin B12 Level; Future - Vitamin B1 Level; Future - West Nile Virus Antibodies; Future - RPR with Reflexes; Future - XR cervical spine 2-3 views; Future - MRI brain wo IV contrast; Future - EMG; Future Repeat imaging and labs, NCV/EMG upper and lower extremity. Time: 45 minutes [facility]2025-01-24 19:09:07Upcoming Encounters Scheduled Orders Name Type Priority Associated Diagnoses Orde r Schedule Ceruloplasmin Lab Routine Essential tremor Cervical radiculopathy Expected: 05/31/2024 (Approximate), Expires: 05/31/2025 Copper Level Lab Routine Essential tremor Cervical radiculopathy Expected: 05/31/2024 (Approximate), Expires: 05/31/2025 C-Reactive Protein Lab Routine Essential tremor Cervical radiculopathy Expected: 05/31/2024 (Approximate), Expires: 05/31/2025 Immunofixation (BARTOLO) Lab Routine Essential tremor Cervical radiculopathy Expected: 05/31/2024 (Approximate), Expires: 05/31/2025 Sedimentation Rate Lab Routine Essential tremor Cervical radiculopathy Expected: 05/31/2024 (Approximate), Expires: 05/31/2025 Zinc Level Lab Routine Essential tremor Cervical radiculopathy Expected: 05/31/2024 (Approximate), Expires: 05/31/2025 Vitamin B6 Level Lab Routine Essential tremor Cervical radiculopathy Expected: 05/31/2024 (Approximate), Expires: 05/31/2025 Vitamin B12 Level Lab Routine Essential tremor Cervical radiculopathy Expected: 05/31/2024 (Approximate), Expires: 05/31/2025 Vitamin B1 Level Lab Routine Essential tremor Cervical radiculopathy Expected: 05/31/2024 (Approximate), Expires: 05/31/2025 West Nile Virus Antibodies Lab Routine Essential tremor Cervical radiculopathy Expected: 05/31/2024 (Approximate), Expires: 05/31/2025 RPR with Reflexes Lab Routine Essential tremor Cervical radiculopathy Expected: 05/31/2024 (Approximate), Expires: 05/31/2025 XR cervical spine 2-3 views Imaging Routine Essential tremor Cervical radiculopathy Expected: 05/31/2024, Expires: 05/31/2025 MRI brain wo IV contrast Imaging Routine Essential tremor Cervical radiculopathy Expected: 05/31/2024, Expires: 05/31/2025 EMG Neurology Routine Essential tremor Cervical radiculopathy Expected: 05/31/2024, Expires: 09/28/2024 Health Maintenance Due Date Last Done Comments CT Colonography 1967 Colonoscopy 1967 Colorectal Cancer Screening 1967 FIT-DNA 1967 FIT 1967 FOBT 1967 Sigmoidoscopy 1967 Hepatitis B Vaccines (1 of 3 - 19+ 3-dose series) 1986 Pap Smear 1988 Lung Cancer Screening 2017 Annual Physical 11/11/2022 11/11/2021, 03/06/2017 Pneumococcal Vaccine: Pediatrics (0 to 5 Years) and At-Risk Patients (6 to 64 Years) (2 of 2 - PCV) 11/11/2022 11/11/2021 Influenza Vaccine (#1) 2024 02/27/2018 Mammogram 05/24/2026 05/24/2024, 05/08, 12/10/2021, Additional history exists Cervical Cancer Screening 11/11/2026 HPV/Cotest 11/11/2026 11/11/2021 Lipid Panel 04/17/2029 04/17/2024 DTaP/Tdap/Td Vaccines (2 - Td or Tdap) 04/07/2031 04/07/2021 Zoster Vaccines Completed 05/03/2018, 02/27/2018 HIB Vaccines Aged Out No longer eligi ble based on patient's age to complete this topic HPV Vaccines Aged Out No longer eligi ble based on patient's age to complete this topic Hepatitis A Vaccines Aged Out No long er eligible based on patient's age to complete this topic IPV Vaccines Aged Out No longer eligi ble based on patient's age to complete this topic Meningococcal Vaccine Aged Out No mirlande viet eligible based on patient's age to complete this topic Rotavirus Vaccines Aged Out No longer eligible based on patient's age to complete this topic [facility] HospitalGvozpzs1694-24-02 19:09:07 Diagnosis Essential tremor - Primary Cervical radiculopathy Brachial neuritis or radiculitis nos [facility] HospitalNodmljr1404-54-97 19:09:07 [facility] HospitalVyebkzs8347-19-85 19:09:07* Neurology (Routine) - Pending Review Specialty Diagnoses / Procedures [facility] Referred To Contact Diagnoses Essential tremor Cervical radiculopathy Procedures EMG Razia Ballesteros MD [address] [place] [address] Phone: tel: fax: Referral ID Status Reason Start Date Expiration Date V isits Requested Visits Authorized [id number] Pending Review 05/31/2024 11/27/2024 1 1 [employer] 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 Venipuncture collection performed by clean technique on the right anticubitus. Total of 1 attempts were made. Slight pressure and a bandage/dressing were applied to the site(s). The patient experienced no complications. The following specimens were processed according to instructions and sent to [facility] laboratories per lab order on 04/17/2024 : LT BLUE SST 1 RED LAV 1 PPT DK GREEN (LiHep) DK GREEN (SodH) GARAY DK BLUE (K2) DK BLUE (S) ACD Blood Culture NIPT/NTD T [facility] - [id number] 10:13:45 Images from the original note were not included. Notes: Last Refilled: Name from pharmacy: Montelukast 10mg Tablet Will file in chart as: MONTELUKAST 10 mg tablet Sig: TAKE ONE (1) TABLET(S) BY MOUTH ONCE A DAY. Disp: 30 tablet (Pharmacy requested: 30 Each) Refills: 0 (Pharmacy requested: Not specified) Start: 04/05/2024 Class: eRX For: Environmental allergies Last ordered: 1 month ago (03/05/2024) by Julio Cesar Quintero MD Last refill: 03/05/2024 Rx #: [id number] Allergy Teihrf9204/05/2024 06:10 AM Protocol Details Valid encounter within last 12 months Name from pharmacy: Budes/Form 160-4.5mcg/act Inh Will file in chart as: BUDESONIDE-FORMOTEROL 160-4.5 mcg/actuation inhaler Sig: INHALE TWO (2) PUFF(S) BY MOUTH EVERY MORNING AND EVENING. Disp: 10.2 g Refills: 2 (Pharmacy requested: Not specified) Start: 04/05/2024 Class: eRX Non-formulary For: Bronchitis Last ordered: 3 months ago (01/05/2024) by Julio Cesar Quintero MD Last refill: 03/05/2024 Rx #: [id number] Pulmonology & Allergy: Combination Products (LABA, LAMA & ICS) LABA-long acting beta-agonist, LAMA-long acting anti-muscarinic, ICS-inhaled corticosteroid Ovtssd8404/05/2024 06:10 AM Protocol Details Valid encounter within last 6 months Name from pharmacy: Levothyroxine 50mcg Tablet Will file in chart as: LEVOTHYROXINE 50 mcg tablet Sig: TAKE ONE (1) TABLET(S) BY MOUTH EVERY MORNING. Disp: 30 tablet (Pharmacy requested: 30 Each) Refills: 3 (Pharmacy requested: Not specified) Start: 04/05/2024 Class: eRX For: Hypothyroidism, unspecified type Last ordered: 3 months ago (12/11/2023) by Julio Cesar Quintero MD Last refill: 03/05/2024 Rx #: [id number] Endocrinology: Hypothyroid Agents Wxehmr6504/05/2024 06:10 AM Protocol Details Manual Review: ENT providers forward refill request to PCP. TSH in normal range and within 360 days Valid encounter within last 12 months To be filled at: [address] [place] Recent Visits Date Type Provider Dept 02/26/24 Office Visit Julio Cesar Quintero MD [facility] 10/10/23 Office Visit Julio Cesar Quintero MD [facility] 11/28/22 Office Visit Julio Cesar Quintero MD [facility] 10/13/22 Office Visit Julio Cesar Quintero MD [facility] Showing recent visits within past 540 days with a meds authorizing provider and meeting all other requirements Future Appointments No visits were found meeting these conditions. Showing future appointments within next 150 days with a meds authorizing provider and meeting all other requirements [facility]2024-11-04 09:32:47 Spoke to pt she can't come in for labs today. I stated labs were placed and she can come n when she has a chance. [facility]2024-11-04 06:11:56 [place] [facility]2024-10-31 22:53:52 Christy Ledesma is a 58 year old female Patient calling to advise to Dr Quintero that she will be going in to do viet labs . Roula MitchellAdena F[facility] Medical CenterJumrzb0321-68-67 09:58:56* [facility] HospitalBjnfufs7048-32-54 09:58:56 [place] [id number] 09:58:56* Razia Ballesteros MD - 03/01/2024 9:00 AM CDT History of Present Illness Tremor Tremor still problematic on propranolol. Worse with action and when she's anxious. Has been almost a year. No side effects on the medication, will increase today. Allergies as of 03/01/2024 - Reviewed 03/01/2024 Allergen Reaction Noted Prednisone Anaphylaxis 03/11/2021 Bupropion Hives 07/08/2021 Buspirone Hives 07/08/2021 Guaifenesin-codeine Swelling 03/05/2015 Methylprednisolone Hives 03/19/2021 Other 03/01/2024 Primidone 03/01/2024 Varenicline Other 11/22/2018 has a current medication list which includes the following prescription(s): ezetimibe, hydroxyzine hcl, levothyroxine, montelukast sodium, naltrexone, paroxetine, and propranolol. Vitals:03/01/24 0927 BP: 98/61 Pulse: 95 Resp: 16 Temp: 36 ?C (96.8 ?F) SpO2: 98% Neurological Exam Mental Status Awake and alert. Speech is normal. Cranial NervesCN II: Visual acuity is normal. CN III, IV, : Extraocular movements intact bilaterally. Pupils equal round and reactive to light bilaterally. CN VII: Full and symmetric facial movement. CN IX, X: Palate elevates symmetrically CN XI: Shoulder shrug strength is normal. CN XII: Tongue midline without atrophy or fasciculations. MotorStrength is 5/5 throughout all four extremities. Mild tremor. SensoryTemperature abnormality: Decreased distally. Vibration abnormality: Decreased distally. ReflexesDeep tendon reflexes: Suppressed but symmetric. GaitCasual gait is normal including stance, stride, and arm swing. Assessment & Plan Diagnoses and all orders for this visit: Essential tremor Other orders - propranolol (Inderal) 20 MG tablet; Take 1 tablet by mouth in the morning and 1 tablet in the evening. Increase propranolol to 20 mg BID I am the continuing focal point for needed health care services and medicalcare services that are part of ongoing care related to this patient's single, serious condition or complex condition. [facility] HospitalBiqppnj0583-15-83 09:58:56 [facility] HospitalTpljxgh4661-01-62 09:58:56 Diagnosis Essential tremor - Primary [facility] HospitalYfdqxqx8583-07-99 09:58:56 [place] 27069-09-30 11:54:15 Images from the original note were not included. Notes: Last Refilled: Name from pharmacy: Montelukast 10mg Tablet Will file in chart as: MONTELUKAST 10 mg tablet Sig: TAKE ONE (1) TABLET(S) BY MOUTH ONCE A DAY. Disp: 30 tablet (Pharmacy requested: 30 Each) Refills: 0 (Pharmacy requested: Not specified) Start: 02/03/2024 Class: eRX For: Environmental allergies Last ordered: 1 month ago (01/05/2024) by Julio Cesar Quintero MD Last refill: 01/05/2024 Rx #: [id number] Allergy Uhbpkj9302/03/2024 05:55 AM Protocol Details Valid encounter within last 12 months To be filled at: [facility] [address] Recent Visits Date Type Provider Dept 10/10/23 Office Visit Julio Cesar Quintero MD [facility] 11/28/22 Office Visit Julio Cesar Quintero MD [facility] 10/13/22 Office Visit Julio Cesar Quintero MD [facility] Showing recent visits within past 540 days with a meds authorizing provider and meeting all other requirements Future Appointments No visits were found meeting these conditions. Showing future appointments within next 150 days with a meds authorizing provider and meeting all other requirements [place] [id number] 11:47:02 Last Refilled: Disp Refills Start End LEIDY ezetimibe (ZETIA) 10 mg tablet 90 tablet 1 11/28/2022 -- -- Sig: Take 1 tablet by mouth in the morning. Sent to pharmacy as: ezetimibe 10 mg tablet (Zetia) Class: eRX Route: Oral Order: [id number] Date/Time Signed: 11/28/2022 10:01 E-Prescribing Status: Receipt confirmed by pharmacy (11/28/2022 10:01 AM CDT Recent Visits Date Type Provider Dept 10/10/23 Office Visit Julio Cesar Quintero MD [facility] 11/28/22 Office Visit Julio Cesar Quintero MD [facility] 10/13/22 Office Visit Julio Cesar Quintero MD [facility] Showing recent visits within past 540 days with a meds authorizing provider and meeting all other requirements Future Appointments No visits were found meeting these conditions. Showing future appointments within next 150 days with a meds authorizing provider and meeting all other requirements [facility] CenterDespxx3785-74-18 07:48:17 Last Refilled: Disp Refills Start End LEIDY levothyroxine 50 mcg tablet 30 tablet 0 10/10/2023 -- -- Sig: Take 1 tablet by mouth every morning. Sent to pharmacy as: levothyroxine 50 mcg tablet (SYNTHROID) Class: eRX Route: Oral Order: [id number] Date/Time Signed: 10/10/2023 10:24 E-Prescribing Status: Receipt confirmed by pharmacy (10/10/2023 10:24 AM CDT) Recent Visits Date Type Provider Dept 10/10/23 Office Visit Julio Cesar Quintero MD [facility] 11/28/22 Office Visit Julio Cesar Quintero MD [facility] 10/13/22 Office Visit Julio Cesar Quintero MD [facility] Showing recent visits within past 540 days with a meds authorizing provider and meeting all other requirements Future Appointments No visits were found meeting these conditions. Showing future appointments within next 150 days with a meds authorizing provider and meeting all other requirements [facility]2024-06-04 07:30:34 Last Refilled: levothyroxine 50 mcg tablet 30 tablet 0 07/07/2023 -- No Sig: TAKE ONE (1) TABLET(S) BY MOUTH EVERY MORNING. 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) Recent Visits Date Type Provider Dept 11/28/22 Office Visit Julio Cesar Quintero MD [facility] 10/13/22 Office Visit Julio Cesar Quintero MD [facility] 05/25/22 Office Visit Julio Cesar Quintero MD [facility] Showing recent visits within past 540 days with a meds authorizing provider and meeting all other requirements Today's Visits Date Type Provider Dept 10/10/23 Appointment Julio Cesar Quintero MD [facility] Showing today's visits with a meds authorizing provider and meeting all other requirements Future Appointments No visits were found meeting these conditions. Showing future appointments within next 150 days with a meds authorizing provider and meeting all other requirements N SoriaAden[facility] CenterZzlctr4174-00-34 09:01:34 Last Refilled: BUTEROL 90 mcg/actuation inhaler 8.5 g 2 03/20/2023 -- No Sig: INHALE TWO (2) PUFFS BY MOUTH EVERY 6 (SIX) HOURS NEEDED FOR WHEEZING. 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 Showing future appointments within next 150 days with a meds authorizing provider and meeting all other requirements [facility] CenterNunnym5005-19-63 08:01:07 Contacted patent and notified her that her last years labs have been printed and faxed to Dr. Mariangel Laird at [phone] fax #. She verbalized understanding and does not need further assistance at this time. Ivon William LVN 12/28/2022 8:01 AM [facility] CenterHpqwei7523-47-53 17:28:12 Christy Ledesma is a 57 year old female Patient is calling stating she signed a realease form 12/26/22 in [facility] to fax lab work to and ischecking on the status Dr. Mariangel Laird [phone] fax Please advise [phone] Lena FalconECU Health Ro[facility]-Chow[facility] HospitalMcmjqv4918-58-23 20:31:27 Received medical records from [facility]. Placed in the providers basket. [facility] 12:23:41 Received Authorization to release healthcare information form from [facility] [place] BrunsonAdena Fayette Medical CenterKjydwj6694-13-27 10:06:24 Images from the original note were not included. Last Refilled: 10/27/22 Notes: [facility] [place], [place] - [address] [place] [address] [facility] & [address] Recent Visits Date Type Provider Dept 10/13/22 Office Visit Julio Cesar Quintero MD [facility] 05/25/22 Office Visit Julio Cesar Quintero MD [facility] 03/30/22 Office Visit Julio Cesar Quintero MD [facility] 11/11/21 Office Visit Roxi Ramirez PA [facility] 08/30/21 Office Visit Julio Cesar Quintero MD [facility] 07/19/21 Office Visit Julio Cesar Quintero MD [facility] 07/12/21 Office Visit Rylee Hatch FNP [facility] 07/08/21 Office Visit Roxi Ramirez PA [facility] Showing recent visits within past 540 days with a meds authorizing provider and meeting all other requirements Today's Visits Date Type Provider Dept 11/28/22 Office Visit Julio Cesar Quintero MD [facility] Showing today's visits with a meds authorizing provider and meeting all other requirements Future Appointments No visits were found meeting these conditions. Showing future appointments within next 150 days with a meds authorizing provider and meeting all other requirements Name from pharmacy: Montelukast 10mg Tablet Will file in chart as: MONTELUKAST 10 mg tablet Sig: TAKE ONE (1) TABLET(S) BY MOUTH ONCE A DAY. Disp: 30 tablet (Pharmacy requested: 30 Each) Refills: 0 (Pharmacy requested: Not specified) Start: 11/27/2022 Class: eRX For: Environmental allergies To pharmacy: Sending Erx refill request Last ordered: 1 month ago (10/27/2022) by Julio Cesar Quintero MD Last refill: 10/27/2022 Rx #: [id number] Allergy Passed 11/27/2022 06:05 AM Protocol Details Valid encounter within last 12 months To be filled at: [facility] [place] - [place], [place] - [address] [place] [address] Drive AT [address] & [address] [facility]
[2024-07-20] MEDS ORDERED: ONDANSETRON 4 MG/2 ML VIAL ONE (22:13)
[2024-07-20] MEDS ORDERED: NA CHLORIDE 0.9% 1,000 ML ONE (22:13)
[2024-07-20 22:25] LABS: Absolute Lymphocytes (CBC) 0.6 K/uL (0.7-4.9); Absolute Monocytes 0.8 K/uL (0.1-1.3); Basophils % 0.4 % (0-1.3); Hematocrit 42.2 % (36.0-45.0); Hemoglobin 14.7 g/dL (12.0-15.0); Lymphocytes % 9.8 % (15.3-44.8); MCH 37.2 pg (27.0-35.0); MCHC 34.8 g/dL (32.0-36.0); MCV 106.9 fL (80-100); MPV 9.2 fL (7.6-11.3); Monocytes % 11.8 % (3.3-12.3); Nucleated Red Blood Cells % 0.2 % (0-0); Platelets 178 thou/uL (152-406); RBC Red Blood Cell Count 3.95 M/uL (3.86-4.86); Red Cell Distribution Width 18.1 % (12.1-15.2)
--- NOTE | 2024-07-20 22:28 | RAD REPORT ---
EXAMINATION: ONE VIEW CHEST XR CLINICAL INDICATION: CHEST PAIN TECHNIQUE: Frontal chest projection is submitted. Examination is limited by patient positioning and t echnique. COMPARISON: 03/27/2022 FINDINGS: The lungs are diffusely emphysematous but grossly clear. The heart is normal in size. No displaced fr actures identified. IMPRESSION: COPD without an acute process suspected.
[2024-07-20 22:44] LABS: Anion Gap 14.9 mEq/L (5.0-15.0); Potassium 3.9 mEq/L (3.5-5.1); Troponin High Sensitivity 8.8 pg/mL (<58.9)
[2024-07-20 23:21] LABS: Blood Morphology Comment NOTED (NOT SEEN); Macrocytosis 1+; Platelet Estimate ADEQ; White Blood Cell Scan OK (OK)
[2024-07-20 23:39] LABS: Barbiturates NEGATIVE (NEGATIVE); Benzodiazepines NEGATIVE (NEGATIVE); Cocaine NEGATIVE (NEGATIVE); METHAMPHETAM NEGATIVE (NEGATIVE); Methadone NEGATIVE (NEGATIVE); Opiates NEGATIVE (NEGATIVE); Phencyclidine NEGATIVE (NEGATIVE); THC Cannibis NEGATIVE (NEGATIVE)
[2024-07-20 23:40] LABS: Specific Gravity > 1.030 (1.005-1.030); Sqamous Epithelial <5 /HPF (None Seen); Urine Bacteria None Seen /HPF (<20); Urine Bilirubin NEGATIVE (Negative); Urine Blood Negative (Negative); Urine Clarity Clear (Clear); Urine Color Light-Yellow (Yellow); Urine Culture Reflex Order NOT NEEDED; Urine Glucose NEGATIVE (Negative); Urine Ketones 2+ (Negative); Urine Micro Reflex YN NO BILL MICROSCOPIC; Urine Mucus Slight /HPF (None Seen); Urine Nitrite NEGATIVE (Negative); Urine Protein TRACE (Negative); Urine RBC <5 /HPF (None Seen); Urine Urobilinogen Normal (Normal); Urine WBC <5 /HPF (<5)
--- NOTE | 2024-07-20 23:52 | EDPHYS ---
Physician Documentation [facility] Name: Christy Lazar Age: 59 yrs Sex: Female : 1965 Arrival Date: 07/20/2024 Time: 20:58 Bed 6 Private MD: ED Physician John Hernandez HPI: 07/20 21:52 This 59 yrs old Female presents to ER via EMS with complaints of ec2 Nausea/Vomiting. 21:52 Patient arrives today for evaluation of nausea vomiting ongoing for the past 3 days. ec2 Patient reports generalized abdominal pain, decreased p.o. intake, nausea and vomiting. Also having diarrhea. No urinary complaints. Previous abdominal surgery that includes tubal ligation.. Historical: - Allergies: 21:12 BuSpar; bm8 21:12 Chantix; bm8 21:12 steroids; bm8 21:12 Tussionex Pennkinetic ER; bm8 - PMHx: 21:12 Hypercholesterolemia; Hypothyroidism; bm8 - PSHx: 21:12 Ligation of fallopian tube; bm8 - Immunization history:: Adult Immunizations up to date. - Infectious Disease History:: Denies. - Social history:: Smoking status: Patient reports the use of cigarette tobacco products, Patient/guardian denies using alcohol, street drugs. ROS: 21:52 Constitutional: as per hpi ec2 Exam: 21:52 Constitutional: GEN: NAD Head: atraumatic Eyes: EOMI Ears: External ears are ec2 normal. CV:tachycardia LUNGS: no respiratory distress ABD: non-distended, soft, generally tender, not guarding or rigid SKIN: no evidence of rashes MSK: no evidence of trauma Vital Signs: 21:10 BP 139 / 88; Pulse 110; Resp 18; Temp 98.4; Pulse Ox 100% ; Weight 68.49 kg; Height 5 bm8 ft. 7 in. ; Pain 03/10; 23:51 Pulse 97; ec2 07/21 00:03 BP 133 / 81; Pulse 85; Resp 17; Temp 98.2; Pulse Ox 100% on R/A; dd2 07/20 21:10 Body Mass Index 23.65 (68.49 kg, 170.18 cm) bm8 07/20 21:10 Pain Scale: Adult bm8 Lexi Coma Score: 07/20 22:36 Eye Response: spontaneous(4). Motor Response: obeys commands(6). Verbal Response: bm8 oriented(5). Total: 15. MDM: 21:19 Medical Screening Exam initiated ec2 21:52 Data reviewed: vital signs, nurses notes. ED course: Patient arrives today for ec2 abdominal pain along with nausea and vomiting. Examination yields abdominal findings as above, slight tachycardia. Will obtain lab work, urine studies, CT imaging.. 23:10 ED course: EKG independently reviewed and interpreted by me, shows sinus tachycardia, ec2 rate 103, no acute ST segment elevation, QTc prolongation of 563. Will hold any additional QTc prolonging agents.. 23:49 ED course: CBC reassuring. Urine is pertinent for ketonuria otherwise noninfectious, ec2 drug screen is negative. Ethanol testing negative. Metabolic profile with appropriate electrolytes and renal function, within normal ranges troponin, chest x-ray shows no acute intrathoracic process. Lipase within normal ranges. Pending CT imaging.. 07/20 21:23 Order name: Basic Metabolic Panel; Complete Time: 23:17 ec2 07/20 21:23 Order name: CBC with Diff; Complete Time: 23:48 ec2 07/20 21:23 Order name: Troponin HS; Complete Time: 23:17 ec2 07/20 21:23 Order name: Lipase; Complete Time: 23:17 ec2 07/20 21:23 Order name: UAM; Complete Time: 23:48 ec2 07/20 22:29 Order name: CBC Smear Scan; Complete Time: 23:48 EDMS 07/20 23:08 Order name: Urine Drug Screen; Complete Time: 23:48 dd2 07/20 23:09 Order name: Ethanol; Complete Time: 23:48 ec2 07/20 21:23 Order name: XRAY Chest (1 view); Complete Time: 22:34 ec2 07/20 21:48 Order name: CT Abd/Pelvis - IV Contrast Only; Complete Time: 00:13 ec2 07/20 21:23 Order name: Cardiac monitoring; Complete Time: 22:15 ec2 07/20 21:23 Order name: EKG - Nurse/Tech; Complete Time: 23:00 ec2 07/20 21:23 Order name: IV Saline Lock; Complete Time: 22:15 ec2 07/20 21:23 Order name: Labs collected and sent; Complete Time: 22:15 ec2 07/20 21:23 Order name: O2 Per Protocol; Complete Time: 22:15 ec2 07/20 21:23 Order name: O2 Sat Monitoring; Complete Time: 22:15 ec2 Administered Medications: 22:15 Drug: Ondansetron IVP 4 mg IVP once; over 2 minutes Route: IVP; Site: right forearm; bm8 22:30 Follow up: Response: No adverse reaction dd2 22:16 Drug: NS 0.9% IV 1000 ml IV at 1000 ml once; to be given as a bolus over 60 minutes bm8 Route: IV; Rate: 1000 ml; Site: right forearm; 23:20 Follow up: IV Status: Completed infusion; IV Intake: 1000ml dd2 Disposition Summary: 07/20/24 23:52 Discharge Ordered Notes: Location: Home ec2 Condition: Stable ec2 Diagnosis - Abdominal pain, Generalized ec2 - Nausea with vomiting, unspecified ec2 Followup: ec2 - With: Private Physician - When: - Reason: Re-evaluation by your physician Discharge Instructions: - Discharge Summary Sheet ec2 - Abdominal Pain, Adult ec2 Forms: - Medication Reconciliation Form ec2 - Antibiotic Education ec2 - Prescription Opioid Use ec2 - Patient Portal Instructions ec2 - Leadership Thank You Letter ec2 Prescriptions: - Zofran 4 mg Oral Tablet - take 1 tablet ORAL route every 12 hours As needed; 20 tablet; Refills: 0, ec2 Product Selection Permitted Signatures: Dispatcher [employer] EDJohn Chen MD MD ec2 Chaitanya Johnson RN RN bm8 MARIEL TRUJILLO RN dd2 Corrections: (The following items were deleted from the chart) 21:24 21:24 BASIC METABOLIC PANEL+C.LAB.BRZ ordered. EDMS EDMS 21:24 21:24 CBC+H.LAB.BRZ ordered. EDMS EDMS 21:24 21:24 Troponin High Sensitivity+C.LAB.BRZ ordered. EDMS EDMS 21:24 21:24 LIPASE+C.LAB.BRZ ordered. EDMS EDMS 21:24 21:24 Urinalysis W/Microscopic+U.LAB.BRZ ordered. EDMS EDMS 21:24 21:24 Chest Single View+RAD.RAD.BRZ ordered. EDMS EDMS 21:53 21:52 Constitutional: GEN: NAD Head: atraumatic Eyes: EOMI Ears: External ears are ec2 normal. CV: regular rate LUNGS: no respiratory distress ABD: non-distended, soft, generally tender, not guarding or rigid SKIN: no evidence of rashes MSK: no evidence of trauma ec2
--- NOTE | 2024-07-20 23:52 | ER ---
Nurse's Notes [facility] Name: Christy Lazar Age: 59 yrs Sex: Female : 1965 Arrival Date: 07/20/2024 Time: 20:58 Bed 6 Private MD: Diagnosis: Abdominal pain, Generalized;Nausea with vomiting, unspecified Presentation: 07/20 21:10 Chief complaint: Patient states: I have been nauseous and vomitting for two days unable bm8 to take my home medications. Coronavirus screen: At this time, the client does not indicate any symptoms associated with coronavirus-19. Ebola Screen: Patient negative for fever greater than or equal to 101.5 degrees Fahrenheit, and additional compatible Ebola Virus Disease symptoms Patient denies exposure to infectious person. Patient denies travel to an Ebola-affected area in the 21 days before illness onset. No symptoms or risks identified at this time. Initial Sepsis Screen: Does the patient meet any 2 criteria? No. Patient's initial sepsis screen is negative. Does the patient have a suspected source of infection? No. Patient's initial sepsis screen is negative. Risk Assessment: Do you want to hurt yourself or someone else? Patient reports no desire to harm self or others. Onset of symptoms was July 18, 2024. 21:10 Method Of Arrival: EMS: [facility] bm8 21:10 Acuity: LISA 3 bm8 Triage Assessment: 21:12 General: Appears in no apparent distress. comfortable, Behavior is calm, cooperative, bm8 appropriate for age. Pain: Denies pain. EENT: No deficits noted. No signs and/or symptoms were reported regarding the EENT system. Neuro: Level of Consciousness is awake, alert, obeys commands, Oriented to person, place, time, situation, Appropriate for age Reports shaking tremor disease that has gotten worse since vomitting because she cant keep her meds down. Cardiovascular: Denies chest pain, Capillary refill < 3 seconds in bilateral fingers Patient's skin is warm and dry. Respiratory: Airway is patent Trachea midline Respiratory effort is even, unlabored, Respiratory pattern is regular, symmetrical. GI: Abdomen is flat, non-distended, Bowel sounds present X 4 quads. Reports nausea, vomiting. : No deficits noted. No signs and/or symptoms were reported regarding the genitourinary system. Derm: No deficits noted. No signs and/or symptoms reported regarding the dermatologic system. Musculoskeletal: No deficits noted. No signs and/or symptoms reported regarding the musculoskeletal system. Historical: - Allergies: 21:12 BuSpar; bm8 21:12 Chantix; bm8 21:12 steroids; bm8 21:12 Tussionex Pennkinetic ER; bm8 - PMHx: 21:12 Hypercholesterolemia; Hypothyroidism; bm8 - PSHx: 21:12 Ligation of fallopian tube; bm8 - Immunization history:: Adult Immunizations up to date. - Infectious Disease History:: Denies. - Social history:: Smoking status: Patient reports the use of cigarette tobacco products, Patient/guardian denies using alcohol, street drugs. Screenin:[facility] ED Fall Risk Assessment (Adult) History of falling in the last 3 months, bm8 including since admission Yes- fall prone (multiple falls) (3 pts) Confusion or Disorientation No (0 pts) Intoxicated or Sedated No (0 pts) Impaired Gait Yes (1 pt) Mobility Assist Device Used Yes (1 pt) Altered Elimination No (0 pt) Score/Fall Risk Level 3 or more points = High Risk Oriented to surroundings, Maintained a safe environment, Educated pt \T\ family on fall prevention, incl call for assistance when getting out of bed, Assessed \T\ reinforced patient's understanding of fall precautions, Hourly rounding (assess needs \T\ fall precautionary measures) done, Used ambulatory aids as needed (educated on \T\ assisted with), Used gait belt as appropriate Implemented a Fall Risk Plan of Care. Abuse screen: Denies threats or abuse. Nutritional screening: No deficits noted. Tuberculosis screening: No symptoms or risk factors identified. Assessment: 22:36 General: Appears in no apparent distress. comfortable, Behavior is calm, cooperative, bm8 appropriate for age. Neuro: No deficits noted. Level of Consciousness is awake, alert, obeys commands, Oriented to person, place, time, situation, Appropriate for age. Cardiovascular: Denies chest pain. Respiratory: Airway is patent Trachea midline Respiratory effort is even, unlabored, Respiratory pattern is regular, symmetrical. GI: Abdomen is flat, non-distended, Reports nausea, but getting better. Vital Signs: 21:10 BP 139 / 88; Pulse 110; Resp 18; Temp 98.4; Pulse Ox 100% ; Weight 68.49 kg; Height 5 bm8 ft. 7 in. ; Pain 07/15; 23:51 Pulse 97; ec2 07/21 00:03 BP 133 / 81; Pulse 85; Resp 17; Temp 98.2; Pulse Ox 100% on R/A; dd2 07/20 21:10 Body Mass Index 23.65 (68.49 kg, 170.18 cm) bm8 07/20 21:10 Pain Scale: Adult bm8 Lexi Coma Score: 07/20 22:36 Eye Response: spontaneous(4). Motor Response: obeys commands(6). Verbal Response: bm8 oriented(5). Total: 15. ED Course: 21:05 Patient arrived in ED. im 21:10 John Hernandez MD is Attending Physician. ec2 21:12 Triage completed. bm8 21:12 Arm band placed on right wrist. bm8 22:05 Chaitanya Johnson, RN is Primary Nurse. bm8 22:20 XRAY Chest (1 view) In Process Unspecified. EDMS 22:36 Patient has correct armband on for positive identification. Placed in gown. Bed in low bm8 position. Call light in reach. Side rails up X 1. Adult w/ patient. Client placed on continuous cardiac and pulse oximetry monitoring. NIBP monitoring applied. Pulse ox on. NIBP on. Sitter at bedside. Door closed. Noise minimized. Warm blanket given. Pillow given. Verbal reassurance given. Head of bed elevated. 22:36 No provider procedures requiring assistance completed. Initial lab(s) drawn, by ne Eleni sent to lab. EKG done, by ED staff, reviewed by John Hernandez MD. Inserted saline lock: 20 gauge in right forearm, using aseptic technique. Blood collected. Flushed with 10 mL NS. Patient maintains SpO2 saturation greater than 95% on room air. 22:59 CT Abd/Pelvis - IV Contrast Only In Process Unspecified. EDMS 07/21 00:03 Provided Education on: D/C EDUCATION. dd2 00:03 IV discontinued, intact, bleeding controlled, No redness/swelling at site. Pressure dd2 dressing applied. Administered Medications: 07/20 22:15 Drug: Ondansetron IVP 4 mg IVP once; over 2 minutes Route: IVP; Site: right forearm; bm8 22:30 Follow up: Response: No adverse reaction dd2 22:16 Drug: NS 0.9% IV 1000 ml IV at 1000 ml once; to be given as a bolus over 60 minutes bm8 Route: IV; Rate: 1000 ml; Site: right forearm; 23:20 Follow up: IV Status: Completed infusion; IV Intake: 1000ml dd2 Medication: 22:36 VIS not applicable for this client. bm8 Intake: 23:20 IV: 1000ml; Total: 1000ml. dd2 Outcome: 23:52 Discharge ordered by . ec2 07/21 00:13 Discharged to home via wheelchair, with family, dd2 Condition: stable Discharge instructions given to patient, Instructed on discharge instructions, follow up and referral plans. medication usage, Demonstrated understanding of instructions, follow-up care, medications, Prescriptions given X 1, 00:24 Patient left the ED. dd2 Signatures: Dispatcher [employer] Courtney Luna Edwin, MD MD ec2 Chaitanya Johnson RN RN bm8 MARIEL TRUJILLO RN RN dd2
--- NOTE | 2024-07-20 23:54 | RAD REPORT ---
EXAM DESCRIPTION: CT ABDOMEN PELVIS WITH IV CONTRAST CLINICAL HISTORY: Abdominal pain COMPARISON: None TECHNIQUE: Contiguous axial images of the abdomen and pelvis were obtained after the administration of intraveno us contrast followed by reconstruction images.This exam was performed according to our departmental dose-optimization program, which includes automated exposure control, adjustment of the mA and/or kV according to patient size and/or use of iterative reconstruction technique. FINDINGS: There is atherosclerosis. The liver is of decreased attenuation compatible with fatty infiltration. T here are diverticuli without CT evidence of acute diverticulitis. The liver, spleen, pancreas and kidneys are otherwise within normal limits. There is no hydronephrosi s or renal stones. The gallbladder is unremarkable by CT criteria. Adrenal glands are within normal limits. Aorta is of normal caliber and tapering. There is no free fluid in the abdomen or pelvis. The re is no stranding of the mesenteric fat to suggest an inflammatory response. There is no bowel obstruction. The appendix is within normal limits. There is no pericecal inflammation. IMPRESSION: No acute intra-abdominal abnormality. Electronically signed by: Peng Booth MD 07/20/2024 11:47 PM CDT Due to temporary technical issues with the PACS/[employer] reporting system, reports are being heena d by the in-house radiologist without review as a courtesy to ensure prompt reporting the interpreting radiologist is fully responsible for the content of the report. Transcribed Date/Time: 07/20/2024 11:53 PM
[2024-07-21 00:57] VITALS: O2SAT 100
[2024-07-21 00:59] VITALS: BP 133/81; TEMP 98.2
== END 2024-07-21 00:24 | disposition home or self-care (01) ==
LOC: ER 20:58
DX: R10.84 Generalized abdominal pain (principal); R11.2 Nausea with vomiting, unspecified
CPT/HCPCS: 36415; 71045; 74177; 80048; 80307; 81001; 82077; 83690; 84484; 85025; 93005; 96361; 96374; 99285; J2405; J7030; Q9967